=== PATIENT | male | born 1955 | race Caucasian/White ===

== ENCOUNTER 2017-09-19 13:48 | Emergency (ER) | payer OTHER, SELFPAY ==
--- NOTE | 2017-09-19 13:53 | DI.RAD.S_ITS ---
PROCEDURE: XR HAND RT MIN 3V INDICATIONS: right hand pain TECHNIQUE: 3 views of the hand(s) acquired. COMPARISON: None. FINDINGS: Bones: No fractures or dislocations. Carpal bones are normally aligned. No suspicious bony lesions. The bone mineralization is diffusely decreased. Moderate to severe degenerative changes are present involving nearly every joint of the right ankle most pronounced involving the basal joint of the thumb. Soft tissues: No suspicious soft tissue calcifications. IMPRESSION: Severe degenerative changes of the right hand. No displaced acute fractures are evident. Dictated by: Juan Wilkins M.D. on 09/19/2017 at 13:54 Approved by: Juan Wilkins M.D. on 09/19/2017 at 13:55
[2017-09-19 13:54] VITALS: BP 157/71; PULSE 93; RESP 22; TEMP 36.9; O2SAT 99; BMI 22.8
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
[2017-09-19 15:55] VITALS: BP 142/77; PULSE 71; RESP 15; O2SAT 97
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
== END 2017-09-19 16:33 | disposition home or self-care (01) ==
PROVIDERS: Emergency Provider Nurse Practitioner Family
DX: S63.8X1A Sprain of other part of right wrist and hand, initial encounter (principal); W22.09XA Striking against other stationary object, initial encounter
CPT/HCPCS: 73130; 99282; 99283

== ENCOUNTER 2019-05-14 09:43 | Day surgery (SDC) | payer MEDICARE, OTHER, SELFPAY ==
[2019-05-14] VITALS (11 sets, daily range): BP systolic 95–143; BP diastolic 66–76; PULSE 77–84; RESP 15–20; TEMP 36.3–37.5; O2SAT 91–99; BMI 22.2
--- NOTE | 2019-05-14 | PATH_ITS ---
[facility] Accession Number: [id number] . 01 Material submitted: . PART A: gastrointestinal site - RANDOM STOMACH BIOPSIES PART B: esophagus, E-G Junction - GE JUNCTION BIOPSIES . 02 Diagnosis: A. Random Stomach, Biopsies: Body mucosa with no diagnostic abnormality. No evidence of Helicobacter organisms on H/E stain. Negative for intestinal metaplasia. Negative for dysplasia and malignancy. . B. Gastroesophageal Junction, Biopsies: Squamocolumnar junctional mucosa with mild chronic inflammation. Negative for specialized intestinal metaplasia or fungal organisms on AB/PAS stain. Negative for dysplasia or malignancy. [facility] 05/15/2019 1415 Local . 02 Electronically signed: . Kody Clark MD, PhD, Pathologist NPI- [id number] . 01 Gross description: . Part A: RANDOM STOMACH BIOPSIES: Received in formalin are 3 fragment(s) of keys, soft tissue measuring 0.1 x 0.1 x 0.1 cm to 0.3 x 0.2 x 0.2 cm submitted entirely in 1 cassette(s) Part B: GE JUNCTION BIOPSIES: Received in formalin are 3 fragment(s) of keys, soft tissue measuring 0.1 x 0.1 x 0.1 cm to 0.3 x 0.2 x 0.2 cm submitted entirely in 1 cassette(s) /[facility] 05/14/2019 2110 Local . 02 Microscopic: . An AB/PAS stain is negative for goblet cells or fungal organisms. A control stain shows appropriate reactivity. . 02 Pathologist provided ICD-10: R10.13, K20.9 . 02 CPT . 731427, 553993, 224831 Performed at: [address], [place], [place] [id number] MD Chris Garcia MD Phone: [phone] Performed at: 02 [facility] [id number] [place] [address] [place], [place] [id number] MD Linnea Maldonado MD Phone: [phone]
[2019-05-14] MEDS: SODIUM CHLORIDE 0.9% 1,000 ML 200 ML IV (10:52)
--- NOTE | 2019-05-14 11:51 | PM.HP.1 ---
History of Present Illness History of Present Illness Date Patient Seen: 05/14/19 Time Patient Seen: 11:51 Chief complaint: [id number] Narrative: The patient is a gentleman who was have thing possible gastritis or ulcer and I was asked to perform an EGD along with a screening colonoscopy. His last colonoscopy was 7 years ago. His father had colon cancer. He has not seen any blood in his stool though he was told that he had it. Patient History Medical History (Updated 05/14/19 @ 11:52 by Timo Zafar MD) Femur fracture (Acute) Hypertension (Acute) Surgical History (Updated 05/14/19 @ 11:52 by Timo Zafar MD) S/P operative procedure on shoulder (Acute) Family & Social History Social History: household members spouse Tobacco & Substance use: Tobacco type cigars Smoking Status Current every day smoker alcohol intake frequency holiday/special occasion/several glasses several times a week Substance Use Type marijuana Meds Home Medications and Allergies Home Medications Medication Instructions Recorded Confirmed Type lisinopril-hydrochlorothiazide 1 tab PO QDAY #0 08/08/11 05/14/19 History Allergies Allergy/AdvReac Type Severity Reaction Status Date / Time Penicillins Allergy Mild Verified 05/14/19 10:44 Tetracycline Allergy Unknown Uncoded 05/14/19 10:44 Review of Systems Review of Systems ROS: Yes All systems reviewed with the patient and are negative except as otherwise documented Exam Vital Signs (past 8 hours): - 05/14/19 10:53 Temperature 97.3 F L Pulse Rate 78 Respiratory Rate 20 Blood Pressure 143/76 H Pulse Oximetry 99 Oxygen Delivery Method Room Air Narrative Exam Narrative: Pleasant cooperative patient no apparent distress. Lungs are clear to auscultation. No rales or rhonchi. Heart regular rate and rhythm no murmur gallop. Abdomen is soft nontender without mass. No obvious hernias. Patient is alert and oriented x3. Assessment & Plan Assessment & Plan narrative: The patient for a screening colonoscopy and an upper endoscopy. I have discussed the procedure with them. Risks of bleeding, perforation which would necessitate major operation, failure to find remove all lesions, the potential tattoo were all discussed. All questions were answered. They wished to proceed.
--- NOTE | 2019-05-14 11:54 | PM.PREOP ---
Pre-operative Note Interval Note History & Physical reviewed/Exam performed by Physician: Yes Changes to H&P: No ASA Class (for procedural sedation): II
--- NOTE | 2019-05-14 12:43 | PM.OP.ENDO ---
Operative Date/Time/Diagnoses Date of procedure: 05/14/19 Time of procedure: 12:43 Pre-op diagnosis: History of epigastric pain possible ulcer. Family history of colon cancer in his father. Last colonoscopy 7 years ago. Post-op diagnosis: same Procedure & Clinicians Study performed: Colonoscopy and upper endoscopy with cold biopsy. Same procedure as scheduled: Yes Indications: Screening for colon cancer. Evaluate for ulcer in the stomach. Surgeon: Timo Zafar Procedure Notes SCOAP/Timeout: Performed Procedure in detail: The patient had topical anesthetic applied to oropharynx. She was placed in left lateral decubitus position and underwent IV sedation directed by the surgeon consisting of fentanyl and Versed. A bite block was inserted and the scope was advanced through it into the esophagus. As I went past the area of the glottis and supraglottic larynx I noted a significant amount of inflammation in this area. The esophagus was unremarkable until I reach the GE junction.. GE junction was noted at 40 cm. There was a Schatzki ring at the GE junction. There was a small hiatal hernia noted.. The stomach insufflated well. There were no lesions seen in the body, antrum or at the incisura though the mucosa seemed somewhat pale. The pyloric channel was narrow but patent. The duodenum was unremarkable to the 4th part. The scope was brought back into the stomach and retroflexed. The proximal stomach normal in appearance. Random biopsies were taken of the stomach due to the pale appearance to rule out atrophy. The scope was straightened and brought out through the esophagus again. Biopsies were taken of the Schatzki ring at the GE junction. I noted no significant narrowing of this region. No other lesions were seen. The scope was removed and the patient tolerated the procedure well. The patient was placed in the left lateral decubitus position and underwent IV sedation directed by the surgeon consisting of fentanyl and Versed. Digital exam was remarkable for a rather large prostate without dominant mass. The scope was inserted and advanced through the rectum into the sigmoid, descending, transverse, and ascending colon. Occasional diverticulosis was noted. The cecum was reached identified by the ileocecal valve and the appendiceal opening. The scope was gradually brought out. No Polyps were found. The scope ultimately was retroflexed in the rectum. The appearance was normal go to the end. The prep was good.. The scope was removed and the patient tolerated the procedure well Scope withdrawal time: 6 minutes Sedation minutes: 35 Findings: diverticulosis and other findings (Schatzki ring and an enlarged prostate) Specimen(s): other (Gastric biopsies and biopsies of his Schatzki ring) Complications: none Post-procedure Recommendations: Colonscopy in 5 years Plan for aftercare: Recommend future colonoscopy be done under deep sedation as the patient required a significant amount of medication to adequately sedate him. Follow up: as needed Disposition: PACU
[2019-05-14] MEDS: MIDAZOLAM 5 MG/ML VIAL IV (12:45)
[2019-05-14] MEDS: fentaNYL 250 MCG/5 ML INJ IV (12:45)
[2019-05-14] MEDS: LIDOCAINE 4% SOLN 50 ML 20 ML TOP (12:46)
--- NOTE | 2019-05-14 13:53 | SUR.PHASEII ---
Discharged patient with all belongings with . [employer] pass provided to patient and family for priority boarding.
== END 2019-05-14 13:51 | disposition home or self-care (01) ==
LOC: ENDO 09:46
PROVIDERS: PCP Family Medicine; Referring Provider Family Medicine; Visit Provider Specialist
PROC: 0DJ08ZZ Inspection of Upper Intestinal Tract, Via Natural or Artificial Opening Endoscopic (ICD-10-PCS; CPT 43235; principal; 2019-05-14 11:45)
PROC: 0DJD8ZZ Inspection of Lower Intestinal Tract, Via Natural or Artificial Opening Endoscopic (ICD-10-PCS; CPT 45378; 2019-05-14 11:45)
DX: Z80.0 Family history of malignant neoplasm of digestive organs (principal); K22.2 Esophageal obstruction; K57.30 Diverticulosis of large intestine without perforation or abscess without bleeding; N40.0 Benign prostatic hyperplasia without lower urinary tract symptoms; K20.9 Esophagitis, unspecified
CPT/HCPCS: 43239; G0105; 99152; 99153; J2250; J3010

== ENCOUNTER → 2020-04-27 08:55 | Outpatient (CLI) | payer MEDICARE, OTHER, SELFPAY ==
--- NOTE | 2020-04-27 | DI.MRI.S_ITS ---
PROCEDURE: MR STROKE Pre- and post-contrast brain MRI, non-contrast brain MR angiogram, pre- and postcontrast neck MR angiogram INDICATIONS: Transient cerebral ischemic attack, unspecified TECHNIQUE: Brain: Noncontrast axial T1 spin echo, axial T2 fast spin echo, sagittal and axial FLAIR, coronal T2 fast spin echo, axial gradient echo, axial diffusion and ADC through the brain. After the administration of contrast, axial 3D VIBE of the cranial vasculature and brain. Brain MRA: Non-contrast 3-D time of flight MR angiogram, with multiple fuoqdbj-vspiwdpng-gnkufamnig (MIP) reformats performed. Neck MRA: Axial and sagittal TruFISP through the neck. Coronal dynamic MR angiogram during administration of contrast in the arterial and venous phases, with 3-dimenstional pbgsujw-oxijojunx-isyiuowzcy (MIP) reformats constructed from subtraction images. COMPARISON: CT, HEAD WITHOUT CONTRAST, 02/26/2008, 18:00. FINDINGS: Image quality: Excellent. BRAIN: The ventricular system and cortical sulci demonstrate atrophy, consistent for the patient's stated age. There are areas of increased T2/FLAIR signal intensity within the periventricular and subcortical white matter. There is no acute intra-or extra axial fluid collection. No acute hemorrhage, mass lesion or midline shift. Brainstem is unremarkable. There are no areas of restricted diffusion. Globes are symmetrical. Sinuses demonstrate minimal pansinus mucosal thickening. Osseous structures are intact. BRAIN MR ANGIOGRAM: Anterior circulation: Intracranial internal carotid arteries are normal in size and enhancement. The flow within the paired anterior cerebral arteries is normal and symmetric. The flow within the middle cerebral arteries is normal and symmetric. The anterior communicating artery is seen. No stenoses, occlusions, or aneurysms. Posterior circulation: The posterior circulation demonstrates a right vertebral artery dominance. Basilar artery and posterior cerebral arteries demonstrate no areas of hemodynamically significant stenosis, vascular occlusion or aneurysmal dilation. Posterior communicating arteries are within normal limits. NECK MR ANGIOGRAM: Carotids: Great vessels demonstrate a conventional anatomy as they arise from the aortic arch. The origins of the common carotid arteries appear patent. The calibers and courses of both common carotid arteries are normal. The bifurcation regions appear normal bilaterally. The internal carotid arteries demonstrate normal course and caliber. Posterior circulation: The origins of the vertebral arteries appear patent. More superior portions of both vertebral arteries demonstrate normal course and caliber, and join to form a normal appearing basilar artery. Miscellaneous: Subclavian arteries appear patent. Pre-contrast images through the neck show no soft tissue abnormalities. IMPRESSION: 1. No acute intracranial process. No acute ischemia. 2. Mild atrophy and chronic microvascular ischemic changes. 3. No areas of hemodynamically significant stenosis, vascular occlusion or aneurysmal dilation within the anterior or posterior circulation. 4. No areas of hemodynamically significant stenosis, vascular occlusion or aneurysmal dilation within the neck vasculature. Dictated by: Rashida Worley M.D. on 04/27/2020 at 13:18 Approved by: Rashida Worley M.D. on 04/27/2020 at 13:24
== END ==
PROVIDERS: PCP Family Medicine; Referring Provider Family Medicine; Visit Provider Family Medicine
DX: G45.9 Transient cerebral ischemic attack, unspecified (principal)
CPT/HCPCS: 70548; 70553

== ENCOUNTER 2022-10-19 08:39 | Emergency (ER) | payer MEDICARE, OTHER, SELFPAY ==
[2022-10-19 08:45] VITALS: BP 174/86; PULSE 62; RESP 18; TEMP 36.4; O2SAT 95; BMI 20.3
[2022-10-19] MEDS: HYDROMORPHONE 1 MG INJ 2 MG IM (08:58)
[2022-10-19] MEDS: ONDANSETRON 4 MG ODT SL (08:58)
--- NOTE | 2022-10-19 09:03 | ED_ITS ---
HPI - Back Pain/Injury General Chief Complaint: Back Pain/Injury Stated Complaint: Chronic Back Pain Time Seen by Provider: 10/19/22 08:42 Source: patient and EMS History of Present Illness HPI Narrative: Patient brought in by ambulance from [facility] rehab/correction. Complains of worsening chronic back pain. Patient scheduled in 2 days for outpatient MRI of the lumbar spine. Patient has history of multiple lumbar fractures. This has been there for many months. Patient was in a ICU unit for sepsis prior to going to rehab. He was found to have lumbar fractures prior to transferring to the rehab facility. Fractures were due to fall/trauma. History alcohol abuse according to medical chart. History of dementia. Patient is awake alert oriented to self. denies denies any new fall or injury. He is getting oxycodone 5 mg every 6 hours and he states that is not controlling his pain. No recent illness. No fever chills or cough cold or congestion. No urinary complaints. Patient points to lower back for source of pain. Able to logroll patient to the left. Area of pain is L3 area. Patient had outpatient x-ray of the lumbar spine September 15, 2022. Denies any numbness tingling or weakness to the feet or legs. Patient is DNR DNI with comfort measures only, POLST form with pt. Related Data Home Medications Medication Instructions Recorded Confirmed lisinopril 20 1 tab PO QDAY ##0 08/08/11 05/14/19 mg-hydrochlorothiazide 12.5 mg tablet Allergies Allergy/AdvReac Type Severity Reaction Status Date / Time Penicillins Allergy Mild Verified 05/14/19 10:44 Tetracycline Allergy Unknown Uncoded 05/14/19 10:44 Review of Systems Review of Systems Narrative: GENERAL: negative chills, fatigue, malaise, fever, sweats. HEENT: negative sinus pain, ear pain, sore throat RESPIRATORY: negative dyspnea, cough CARDIOVASCULAR: negative chest pain, palpitations GASTROINTESTINAL: negative nausea, vomiting, abdominal pain : negative dysuria, frequency, hematuria MUSCULOSKELETAL: negative muscle or bony pain, positive back pain SKIN: negative rash, skin lesions NEUROLOGIC: negative weakness, numbness ROS Unobtainable: All systems reviewed & are unremarkable except as noted in HPI and below Patient History Medical History Femur fracture Hypertension Surgical History S/P operative procedure on shoulder Social History household members: spouse Smoking Status: Current every day smoker Smoking Status: Current every day smoker alcohol intake frequency: holidays/special occasions only Substance Use Type: marijuana Exam Narrative Exam Narrative: GENERAL: in no distress, not toxic not dyspneic HEAD: Normocephalic. EYES: Pupils equal round ENT: Mucous membranes moist. NECK: Trachea midline. CARDIOVASCULAR: Regular rate and rhythm without murmurs RESPIRATORY: Clear to auscultation. Breath sounds equal bilaterally. No wheezes, rales, or rhonchi. GASTROINTESTINAL: Abdomen soft, non-tender EXTREMITIES: No gross deformities. BACK: No flank tenderness. There is mild paralumbar tenderness at the L3 area. No midline tenderness or step-off. Patient is able to log roll to the left. Increased pain with sitting up attempt. NEURO: Patient is awake alert oriented to self and date of . Clear speech no facial droop. Light touch intact in bilateral feet. Able to lift each leg off the bed. SKIN: Warm and dry PSYCH: Not anxious, is cooperative Initial Vital Signs Initial Vital Signs: Vital Signs Temperature 97.5 F L 10/19/22 08:45 Pulse Rate 62 10/19/22 08:45 Respiratory Rate 18 10/19/22 08:45 Blood Pressure 174/86 H 10/19/22 08:45 Pulse Oximetry 95 10/19/22 08:45 Oxygen Delivery Method Room Air 10/19/22 08:45 Course Orders Ordered: Discontinued Medications Hydromorphone HCl (Hydromorphone 1 Mg Inj) 2 mg IM NOW ONE Stop: 10/19/22 08:54 Last Admin: 10/19/22 08:58 Dose: 2 mg Documented By: FERN Ondansetron HCl (Ondansetron 4 Mg Odt) 4 mg SL NOW ONE Stop: 10/19/22 08:54 Last Admin: 10/19/22 08:58 Dose: 4 mg Documented By: FERN Vital Signs Vital signs: Vital Signs - 8 hr 10/19/22 08:45 10/19/22 10:26 Temperature 97.5 F L Pulse Rate 62 89 Respiratory Rate 18 18 Blood Pressure 174/86 H 154/81 H Pulse Oximetry 95 99 Oxygen Delivery Method Room Air MDM - Back Pain/Injury MDM Narrative Medical decision making narrative: Patient brought in by ambulance from [facility] rehab/correction. Complains of worsening chronic back pain. Patient scheduled in 2 days for outpatient MRI of the lumbar spine. Patient has history of multiple lumbar fractures. This has been there for many months. Patient was in a ICU unit for sepsis prior to going to rehab. He was found to have lumbar fractures prior to transferring to the rehab facility. Fractures were due to fall/trauma. History alcohol abuse according to medical chart. History of dementia. Patient is awake alert oriented to self. denies denies any new fall or injury. He is getting oxycodone 5 mg every 6 hours and he states that is not controlling his pain. No recent illness. No fever chills or cough cold or congestion. No urinary complaints. Patient points to lower back for source of pain. Able to logroll patient to the left. Area of pain is L3 area. Patient had outpatient x-ray of the lumbar spine September 15, 2022. Denies any numbness tingling or weakness to the feet or legs. Patient is DNR DNI with comfort measures only, POLST form with pt. After history and exam Dilaudid IM ordered, no laboratory studies or imaging indicated. No new injury or fall. Patient is awake and alert and decisional. No recent illness. MDM CC: Chronic back pain Complicating co-morbidities: Chronic back pain/dementia Data collected from: Patient and medical records from the facility Medical records reviewed: X-ray September 15, 2022 lumbar spine done here. longterm records as well Differential considered: Includes but not limited to acute on chronic back pain secondary to vertebral fracture Exam documented above, pertinent findings include: Tender lower back Treatments: Dilaudid intramuscular Re-evaluations: 10:53 a.m.. Patient states feels much better, pain much better controlled. He desires discharge home. Return precautions reviewed. He will need his primary care to adjust his pain medication scheduling. Discussion: Appropriate for discharge home. Patient is back pain likely due to need of rescheduling or higher dose of pain medication. No imaging or blood work indicated. No fall or injury recent illness. This pain is not new. Patient agrees with treatment plan. Return precautions reviewed. He desires discharge back home Diagnosis: Acute on chronic back pain Discharge Plan Departure Patient Disposition: Home Clinical Impression: Chronic back pain Instructions: DI for Chronic Pain -- Adult Activity Restrictions/Additional Instructions: Please see your family doctor this week for re-evaluation of your pain medicatio n scheduling. You may need different dosing or scheduling of your pain medication to have better control. Return if worse if any questions or concerns. Prescriptions: No Action lisinopril-hydrochlorothiazide 20 MG/12.5 MG tablet 1 tab PO QDAY Qty: 0 Referrals: Fabian Astudillo MD [Primary Care Provider] - Stand Alone Forms: Patient Portal/API
[2022-10-19 10:26] VITALS: BP 154/81; PULSE 89; RESP 18; O2SAT 99
[2022-10-19 11:09] VITALS: BP 132/86; PULSE 89; O2SAT 100
--- NOTE | 2022-10-19 11:09 | PC.NURSE ---
report called to [facility] [phone]
== END 2022-10-19 12:37 | disposition home or self-care (01) ==
PROVIDERS: Emergency Provider Emergency Medicine; PCP Family Medicine
DX: G89.29 Other chronic pain (principal)
CPT/HCPCS: 96372; 99283; J1170

== ENCOUNTER → 2022-10-21 11:23 | Outpatient (CLI) | payer MEDICARE, OTHER, SELFPAY ==
--- NOTE | 2022-10-21 | DI.MRI.S_ITS ---
PROCEDURE: MR LUMBAR SPINE WO CON INDICATIONS: Wedge compression fracture TECHNIQUE: Noncontrast sagittal T1 spin echo and T2 fast echo, sagittal STIR, and T2 fast spin echo through the lumbar spine. In cases with scoliosis, additional coronal T2 fast spin echo may be performed. COMPARISON: None. FINDINGS: Image quality: Excellent. Alignment and Curvature: There is normal bony alignment. Bone Marrow: There is a moderate to severe compression of L1 with approximately 70% midportion vertebral body height loss, and some degree of continued acuity, not completely healed. There is a moderate to severe acute compression fracture of L2 with approximately 70% midportion vertebral body height loss. There is a compression fracture of L3 which is chronic with approximately 80% midportion vertebral body height loss. There is a acute to subacute compression of L4 with approximately 60% midportion vertebral body height loss. There is a subacute mild superior endplate compression of L5 with approximately 15% midportion vertebral body height loss. Also noted is a mild old T11 compression. Spinal Cord: Conus medullaris terminates at the L1 level. Visualized cord demonstrates normal signal and size. Paraspinous Soft Tissues: No paravertebral masses. T12-L1: No canal stenosis or foraminal stenosis. L1-L2: Disc bulge with tygm-et-memfzonf canal stenosis. Severe right foraminal stenosis with significant compression on the exiting right L1 nerve root. L2-L3: Disc bulge. Facet and ligament hypertrophy. Hhia-ua-hvkacyyw canal stenosis. Moderate to severe right foraminal narrowing with a degree of right foraminal L2 nerve root impingement. L3-L4: Disc bulge. Facet and ligament hypertrophy. Mild canal stenosis. Moderate right foraminal narrowing with flattening deformity on the exiting right L3 nerve root. L4-L5: Disc bulge. Facet hypertrophy. No canal stenosis. Moderate bilateral foraminal narrowing with mild flattening deformity on the exiting bilateral L4 nerve roots. L5-S1: Disc bulge. Facet hypertrophy. No canal stenosis. Moderate to severe right foraminal narrowing with a degree of right foraminal L5 nerve root impingement. Mild to moderate left foraminal narrowing. IMPRESSION: 1. Severe osteoporosis with numerous compression fractures. 2. There are multiple compression fractures which are either acute or subacute, including L1, L2, L4, and L5. Additionally, there are chronic compressions of T11 and L3. 3. Canal stenosis is mild to moderate at L2-L3 and mild at L3-L4. 4. Significant multilevel foraminal narrowing as described above, including severe right foraminal narrowing at L1-L2, moderate to severe right foraminal narrowing at L2-L3, and moderate to severe right foraminal narrowing at L5-S1. Comment: Patient may potentially benefit from a discussion for possible multilevel kyphoplasty, if the patient has significant acute lifestyle limiting pain symptomatology. Additional comment: Cannot exclude underlying multiple myeloma in this patient. Consider initiation of multiple myeloma workup. Dictated by: Bryant Greenwood M.D. on 10/21/2022 at 15:36 Approved by: Bryant Greenwood M.D. on 10/21/2022 at 15:44
== END ==
PROVIDERS: PCP Family Medicine; Referring Provider Family Medicine; Visit Provider Family Medicine
DX: M80.08XA Age-related osteoporosis with current pathological fracture, vertebra(e), initial encounter for fracture (principal); S32.000A Wedge compression fracture of unspecified lumbar vertebra, initial encounter for closed fracture; M48.061 Spinal stenosis, lumbar region without neurogenic claudication; M48.07 Spinal stenosis, lumbosacral region
CPT/HCPCS: 72148

== ENCOUNTER 2022-10-30 11:01 | Inpatient (IN) | payer MEDICARE, OTHER, SELFPAY ==
[2022-10-30] VITALS (9 sets, daily range): BP systolic 110–151; BP diastolic 67–93; PULSE 77–107; RESP 14–20; TEMP 36.7; O2SAT 95–100; BMI 22.2
--- NOTE | 2022-10-30 11:11 | DI.RAD.S_ITS ---
PROCEDURE: XR LUMBAR SPINE 2-3V INDICATIONS: Reported L4, L5 fracture two months ago TECHNIQUE: 3 views of the lumbar spine were acquired. COMPARISON: [facility], MR, MR LUMBAR SPINE WO CON, 10/21/2022, 11:40. [facility] ([place]), CR, XR LUMBAR SPINE 2-3V, 09/15/2022, 15:29. FINDINGS: Examination limited by dilated overlying bowel loops. Bones: 5 ydq-msg-mrhffgo vertebrae are present. There is loss of normal lumbar lordosis. Multilevel disc space narrowing and endplate osteophyte formation. No significant change in multilevel compression fractures within the lumbar and lower thoracic spine. No suspicious bony lesions. Soft tissues: Moderately distended small bowel loops with air-fluid levels. No suspicious soft tissue calcifications. IMPRESSION: 1. No significant change in multilevel compression fractures. 2. Dilated small bowel loops, consistent with small bowel obstruction. Dictated by: Jyotsna Amaro M.D. on 10/30/2022 at 12:07 Approved by: Jyotsna Amaro M.D. on 10/30/2022 at 12:09
--- NOTE | 2022-10-30 11:14 | DI.CT.S_ITS ---
PROCEDURE: CT ABDOMEN PELVIS W CON INDICATIONS: Abdominal pain w/ hx of constipation TECHNIQUE: After the administration of intravenous contrast, axial sections acquired from the lung bases to the pubic symphysis. Coronal and sagittal reformats were performed. For radiation dose reduction, the following was used: automated exposure control, adjustment of mA and/or kV according to patient size. COMPARISON: [facility], CT, ABDOMEN/PELVIS WITH CONTRAST, 07/23/2013, 11:30. FINDINGS: Image quality: Excellent. Lung bases: Trace bilateral pleural effusions. Heart: No significant findings. ABDOMEN: Liver: Unremarkable. Gallbladder: Mildly distended Biliary ducts: Unremarkable. Pancreas: Unremarkable. Spleen: Unremarkable. Adrenal Glands: Unremarkable. Kidneys and Ureters: Unremarkable. Stomach and Bowel: Stomach is mildly distended. Multiple moderately distended loops of small present. There appears to be a transition point within the mid line pelvis anteriorly between dilated and nondilated small bowel. Distal small bowel loops are nondistended. Colon demonstrates moderate diffuse stool. There is moderate thickening of the descending and sigmoid colon. Mild fat stranding surrounds the descending and sigmoid colon. Normal appendix. Peritoneum: No abnormal intraperitoneal fluid. No free air. Ventral Wall: No hernias. Abdominal Nodes: No retroperitoneal or mesenteric adenopathy by size criteria. Vessels: Aorta and inferior vena cava are normal in size. PELVIS: Pelvic Organs: Unremarkable. Bladder: Unremarkable. Pelvic Nodes: No enlarged lymph nodes. Miscellaneous: No hernias are seen. Bones: Subacute L2 and L4 compression fractures. Chronic fractures of T11, T12, L1, and L3. Multilevel disc space narrowing and endplate osteophyte formation, as well as facet hypertrophy. IMPRESSION: 1. Small-bowel obstruction. 2. Thickening of the descending and sigmoid colon, consistent with ischemia, infection, or inflammation. 3. Normal appendix. 4. Trace bilateral pleural effusions. 5. Multilevel compression fractures regions thoracolumbar spine. Dictated by: Jyotsna Amaro M.D. on 10/30/2022 at 12:22 Approved by: Jyotsna Amaro M.D. on 10/30/2022 at 12:26
--- NOTE | 2022-10-30 11:16 | ED.BACK ---
HPI - Back Pain/Injury <Moses Hess PA-C - Last Filed: 10/30/22 14:47> General Chief Complaint: Back Pain/Injury Stated Complaint: worsening pain Time Seen by Provider: 10/30/22 11:04 Source: patient and EMS History of Present Illness HPI Narrative: This is a 67-year-old male presents emergency department due to worsening acute on chronic lower back pain after reportedly fracture in his L4 and L5 vertebrae approximately 2 months ago. he was told that this would heal over time without any further treatment needed. Patient denies any saddle paresthesia, urinary bowel incontinence, fevers, or any other concerning signs or symptoms. No radicular pain and no weakness in the lower extremities. Patient is also describing having very infrequent bowel movements over the last 3 weeks. He says that every once a while it there is able to be a spurt. He is also reporting abdominal pain as well. Denies any nausea, vomiting, fevers, chest pain, shortness of breath weakness, or any other concerning signs or symptoms. Last ate at 8:30am Related Data Home Medications Medication Instructions Recorded Confirmed lisinopril 20 1 tab PO QDAY ##0 08/08/11 05/14/19 mg-hydrochlorothiazide 12.5 mg tablet Allergies Allergy/AdvReac Type Severity Reaction Status Date / Time Penicillins Allergy Mild Verified 10/30/22 11:51 tetracycline AdvReac Verified 10/30/22 11:51 Tetracycline Allergy Unknown Uncoded 10/30/22 11:51 Review of Systems <Moses Hess PA-C - Last Filed: 10/30/22 14:47> Review of Systems Narrative: GENERAL: Denies chills, fatigue, malaise, fever, sweats. HEENT: Denies sinus pain, ear pain, sore throat, difficulty swallowing, dizziness. RESPIRATORY: Denies dyspnea, cough, wheezing, hemoptysis, sputum. CARDIOVASCULAR: Denies chest pain, palpitations, orthopnea, edema, GASTROINTESTINAL: reports abdominal pain and constipation. Denies diarrhea, nausea, vomiting : Denies dysuria, frequency, incontinence, hematuria, urinary retention. MUSCULOSKELETAL: Reports lower back pain SKIN: Denies rash, skin lesions, or other NEUROLOGIC: Denies weakness, headache, numbness, change in speech, confusion, seizures, incoordination. PSYCHIATRIC: No concerning psychosocial issues. 12 point review of systems is negative except for those stated above Patient History <GRACIE Riley Last Filed: 10/30/22 14:47> Medical History Femur fracture Hypertension Surgical History S/P operative procedure on shoulder Social History household members: spouse Smoking Status: Current every day smoker Smoking Status: Former smoker alcohol intake frequency: holidays/special occasions only Substance Use Type: does not use Exam <GRACIE Riley Last Filed: 10/30/22 14:47> Narrative Exam Narrative: GENERAL: Well-developed patient, in mild distress. HEAD: Atraumatic. Normocephalic. EYES: Pupils equal round and reactive. Extraocular motions intact. No scleral icterus. No injection or drainage. ENT: Nose without bleeding, purulent drainage. Throat without erythema, tonsillar hypertrophy or exudate. Airway patent. NECK: Trachea midline. Non tender CARDIOVASCULAR: Regular rate and rhythm without murmurs, gallops, or rubs. RESPIRATORY: Clear to auscultation. Breath sounds equal bilaterally. No wheezes, rales, or rhonchi. GASTROINTESTINAL: moderate distention to the abdomen, tenderness to palpation generalized EXTREMITIES: No edema or joint tenderness. BACK: Nontender without deformity or crepitance. No flank tenderness. NEURO: AOx3. SKIN: No rash or erythema of visible areas Initial Vital Signs Initial Vital Signs: Vital Signs Temperature 98.1 F 10/30/22 11:07 Pulse Rate 93 H 10/30/22 11:07 Respiratory Rate 20 10/30/22 11:07 Blood Pressure 145/77 H 10/30/22 11:07 Pulse Oximetry 100 10/30/22 11:07 Oxygen Delivery Method Room Air 10/30/22 11:07 <Dakota Ornelas DO - Last Filed: 10/30/22 15:31> Initial Vital Signs Initial Vital Signs: Vital Signs Temperature 98.1 F 10/30/22 11:07 Pulse Rate 93 H 10/30/22 11:07 Respiratory Rate 20 10/30/22 11:07 Blood Pressure 145/77 H 10/30/22 11:07 Pulse Oximetry 100 10/30/22 11:07 Oxygen Delivery Method Room Air 10/30/22 11:07 Course <Moses Hess PA-C - Last Filed: 10/30/22 14:47> Orders Ordered: ED Orders 10/30/22 11:11 XR lumbar spine 2-3V Stat 10/30/22 11:14 CT abdomen pelvis w con Stat 10/30/22 11:25 Complete Blood Count AUTO DIFF Stat Comprehensive Metabolic Panel Stat 10/30/22 14:25 Blood Culture Stat Lactate (Lactic Acid) Stat Enoxaparin Sodium (Enoxaparin 40 Mg/0.4 Ml Syringe) 40 mg SUBCUT DAILY JASWINDER Hydromorphone HCl (Hydromorphone 0.5 Mg Inj) 0.5 mg IV Q2H PRN PRN Reason: Pain, Severe (7-10) Dextrose/Sodium Chloride (Dextrose 5%-0.9% Ns) 1,000 mls @ 100 mls/hr IV CONT JASWINDER Naloxone HCl (Naloxone 0.4 Mg/Ml Vial) 0.2 mg IV Q2MIN PRN PRN Reason: Opiate Reversal Ondansetron HCl (Ondansetron 4 Mg/2 Ml Inj) 4 mg IV Q8HR PRN PRN Reason: Nausea And Vomiting Discontinued Medications Sodium Chloride (Normal Saline 0.9%) 1,000 mls @ 1,000 mls/hr IV BOLUS ONE Stop: 10/30/22 13:06 Last Infusion: 10/30/22 14:04 Dose: 0 mls/hr Documented By: Admin: 10/30/22 12:43 Dose: 1,000 mls/hr Documented By: OW POTASSIUM CHLORIDE IN WATER (Potassium Cl 10 Meq/100 Ml Deya) 10 meq in 100 mls @ 100 mls/hr IV NOW ONE Stop: 10/30/22 15:24 Last Admin: 10/30/22 14:42 Dose: 100 mls/hr Documented By: ST Midazolam HCl (Midazolam 2 Mg/2 Ml Vial) 0.5 mg IV NOW ONE Stop: 10/30/22 14:28 Last Admin: 10/30/22 14:42 Dose: 0.5 mg Documented By: ST Morphine Sulfate (Morphine 2 Mg/Ml Inj) 2 mg IV NOW ONE Stop: 10/30/22 11:30 Last Admin: 10/30/22 11:33 Dose: 2 mg Documented By: ALICIA Ondansetron HCl (Ondansetron 4 Mg/2 Ml Inj) 4 mg IV NOW ONE Stop: 10/30/22 11:30 Last Admin: 10/30/22 11:33 Dose: 4 mg Documented By: ALICIA Consultations Consultation #1: [id number]: Discussed case with Dr. Rojas as noted below Vital Signs Vital signs: Vital Signs - 8 hr 10/30/22 11:07 10/30/22 12:30 10/30/22 12:30 Temperature 98.1 F Pulse Rate 93 H 85 Respiratory Rate 20 Blood Pressure 145/77 H 110/67 Pulse Oximetry 100 99 Oxygen Delivery Method Room Air 10/30/22 13:00 10/30/22 13:30 10/30/22 14:31 Temperature Pulse Rate 87 77 Respiratory Rate Blood Pressure 143/82 H Pulse Oximetry 100 100 Oxygen Delivery Method Room Air 10/30/22 14:31 Temperature Pulse Rate 90 Respiratory Rate Blood Pressure Pulse Oximetry 95 Oxygen Delivery Method <Dakota Ornelas DO - Last Filed: 10/30/22 15:31> Orders Ordered: ED Orders 10/30/22 11:11 XR lumbar spine 2-3V Stat 10/30/22 11:14 CT abdomen pelvis w con Stat 10/30/22 11:25 Complete Blood Count AUTO DIFF Stat Comprehensive Metabolic Panel Stat 10/30/22 14:25 Blood Culture Stat Lactate (Lactic Acid) Stat Enoxaparin Sodium (Enoxaparin 40 Mg/0.4 Ml Syringe) 40 mg SUBCUT DAILY JASWINDER Hydromorphone HCl (Hydromorphone 0.5 Mg Inj) 0.5 mg IV Q2H PRN PRN Reason: Pain, Severe (7-10) Dextrose/Sodium Chloride (Dextrose 5%-0.9% Ns) 1,000 mls @ 100 mls/hr IV CONT JASWINDER Naloxone HCl (Naloxone 0.4 Mg/Ml Vial) 0.2 mg IV Q2MIN PRN PRN Reason: Opiate Reversal Ondansetron HCl (Ondansetron 4 Mg/2 Ml Inj) 4 mg IV Q8HR PRN PRN Reason: Nausea And Vomiting Discontinued Medications Sodium Chloride (Normal Saline 0.9%) 1,000 mls @ 1,000 mls/hr IV BOLUS ONE Stop: 10/30/22 13:06 Last Infusion: 10/30/22 14:04 Dose: 0 mls/hr Documented By: Admin: 10/30/22 12:43 Dose: 1,000 mls/hr Documented By: OW POTASSIUM CHLORIDE IN WATER (Potassium Cl 10 Meq/100 Ml Deya) 10 meq in 100 mls @ 100 mls/hr IV NOW ONE Stop: 10/30/22 15:24 Last Admin: 10/30/22 14:42 Dose: 100 mls/hr Documented By: ST Midazolam HCl (Midazolam 2 Mg/2 Ml Vial) 0.5 mg IV NOW ONE Stop: 10/30/22 14:28 Last Admin: 10/30/22 14:42 Dose: 0.5 mg Documented By: ST Morphine Sulfate (Morphine 2 Mg/Ml Inj) 2 mg IV NOW ONE Stop: 10/30/22 11:30 Last Admin: 10/30/22 11:33 Dose: 2 mg Documented By: OW Ondansetron HCl (Ondansetron 4 Mg/2 Ml Inj) 4 mg IV NOW ONE Stop: 10/30/22 11:30 Last Admin: 10/30/22 11:33 Dose: 4 mg Documented By: OW Vital Signs Vital signs: Vital Signs - 8 hr 10/30/22 11:07 10/30/22 12:30 10/30/22 12:30 Temperature 98.1 F Pulse Rate 93 H 85 Respiratory Rate 20 Blood Pressure 145/77 H 110/67 Pulse Oximetry 100 99 Oxygen Delivery Method Room Air 10/30/22 13:00 10/30/22 13:30 10/30/22 14:31 Temperature Pulse Rate 87 77 Respiratory Rate Blood Pressure 143/82 H Pulse Oximetry 100 100 Oxygen Delivery Method Room Air 10/30/22 14:31 Temperature Pulse Rate 90 Respiratory Rate Blood Pressure Pulse Oximetry 95 Oxygen Delivery Method MDM - Back Pain/Injury <Moses Hess PA-C - Last Filed: 10/30/22 14:47> Lab Data 10/30/22 11:25 10/30/22 11:25 Labs: Lab Results 10/30/22 10/30/22 10/30/22 Range/Units 11:25 11:25 14:25 WBC 7.0 (4.5-11.0) X10^3/uL RBC 3.32 L (4.5-5.9) X10^6/uL Hgb 9.7 L (13.5-17.5) g/dL Hct 28.8 L (41-53) % MCV 86.8 (80-100) fL MCH 29.2 (26-34) PG MCHC 33.6 (30-36) % RDW 15.7 H (11.6-14.8) % Plt Count 506 H (150-400) X10^3/uL Neut % (Auto) 56.4 (50-75) % Lymph % (Auto) 22.8 L (25-40) % [place] % (Auto) 19.0 H (3-14) % Eos % (Auto) 0.7 L (2-4) % Baso % (Auto) 1.1 (0-2) % Neut # (Auto) 3900 (7906-0039) /uL Lymph # (Auto) 1600 (2733-9656) /uL [place] # (Auto) 1300 H (0-900) /uL Eos # (Auto) 0 (0-450) /uL Baso # (Auto) 100 (0-100) /uL Sodium 123 L (137-145) mmol/L Potassium 3.3 L (3.4-5.1) mmol/L Chloride 91 L (98-107) mmol/L Carbon Dioxide 25 (22-32) mmol/L BUN 5 L (9-20) mg/dL Creatinine 0.66 (0.66-1.25) mg/dL Estimated GFR > 60 (>60) mL/min BUN/Creatinine Ratio 7.6 (6-22) Glucose 128 H (80-110) mg/dL Lactate 2.3 H (0.7-2.1) mmol/L Calcium 8.0 L (8.4-10.2) mg/dL Total Bilirubin 0.3 (0.2-1.3) mg/dL AST 16 L (17-59) IU/L ALT 16 (<50) IU/L Alkaline Phosphatase 129 H (38-126) U/L Total Protein 5.6 L (6.3-8.2) g/dL Albumin 2.6 L (3.5-5.0) g/dL Globulin 3.0 (1.7-4.1) g/dL Albumin/Globulin Ratio 0.9 L (1.0-2.8) Urine Dip Bedside Urine Glucose Negative Bedside Urine Bilirubin - Negative Bedside Urine Ketone - Negative Urine Specific [place] 1.005 Bedside Urine Occult Blood - Negative Bedside Urine pH 6.5 Bedside Urine Protein - Negative Bedside Urine Urobilinogen - Negative Bedside Urine Nitrite - Negative Bedside Urine Leukocytes - Negative Esterase Imaging Data CT scan - abdomen/pelvis: Radiologist's Impression: Unable to transfer exact report due to technical difficulties. Impression as noted below. Small-bowel obstruction thickening of the the descending and sigmoid colon consistent with ischemia infection or inflammation Normal appendix Trace bilateral pleural effusions Multilevel compression fractures regions thoracolumbar spine MDM Narrative Medical decision making narrative: MDM * differential diagnosis includes but not limited to constipation, small-bowel obstruction, lumbar fracture, acute on chronic lumbar pain, cauda equina * Prior records reviewed: Patient was last seen here 2 weeks ago due to similar chronic back pain. History of alcohol abuse and dementia. History of hypertension. Patient was given IM Dilaudid which helped improve his back pain and discharged home. * My lab interpretation: CMP showed hyponatremia of 123 although patient was not presenting with any acute signs of acute hyponatremia. Also very mildly hypokalemic at 3.3. Mildly hypocalcemic at 8.0. CBC showed no evidence of leukocytosis. * My imgaing interpretation: CT abdomen pelvis showed small bowel obstruction, thickening of the descending and sigmoid colon, consistent with ischemia infection or inflammation. Normal appendix. Trace bilateral pleural effusions. Subacute L2 and L4 compression fractures as well as chronic fractures of T11, T12, L1, and L3. * Clinical Decision Rules/Scores evaluated: None * Independent discussions with: None ED Course: This is a 67-year-old male presents to the emergency department due to 3 weeks constipation as well as acute on chronic lower back pain. Due to the amount of distention CT abdomen and pelvis was ordered which showed a small-bowel obstruction. This was discussed with on-call general surgeon, Dr. Rojas, who recommended placement of the NG tube and admission to the hospitalist. patient is labwork showed hyponatremia of 123 with, a L of normal saline was given. Also very mildly hypokalemic and IV potassium was given. Case was discussed with hospitalist, Dr. Campbell, who kindly accepted the patient for admission. report also showed multiple vertebral fractures although chronic and no further treatment needed.. No patient was not describing any neurologic changes concerning for cauda equina syndrome or spinal cord compromise. Shared Decision Making: Discussed plan with the patient who is comfortable with the plan. Social Considerations: None Disposition: admitted as inpatient <Dakota Ornelas, DO - Last Filed: 10/30/22 15:31> Lab Data Labs: Lab Results 10/30/22 10/30/22 10/30/22 Range/Units 11:25 11:25 14:25 WBC 7.0 (4.5-11.0) X10^3/uL RBC 3.32 L (4.5-5.9) X10^6/uL Hgb 9.7 L (13.5-17.5) g/dL Hct 28.8 L (41-53) % MCV 86.8 (80-100) fL MCH 29.2 (26-34) PG MCHC 33.6 (30-36) % RDW 15.7 H (11.6-14.8) % Plt Count 506 H (150-400) X10^3/uL Neut % (Auto) 56.4 (50-75) % Lymph % (Auto) 22.8 L (25-40) % [place] % (Auto) 19.0 H (3-14) % Eos % (Auto) 0.7 L (2-4) % Baso % (Auto) 1.1 (0-2) % Neut # (Auto) 3900 (6712-9546) /uL Lymph # (Auto) 1600 (7842-9287) /uL [place] # (Auto) 1300 H (0-900) /uL Eos # (Auto) 0 (0-450) /uL Baso # (Auto) 100 (0-100) /uL Sodium 123 L (137-145) mmol/L Potassium 3.3 L (3.4-5.1) mmol/L Chloride 91 L (98-107) mmol/L Carbon Dioxide 25 (22-32) mmol/L BUN 5 L (9-20) mg/dL Creatinine 0.66 (0.66-1.25) mg/dL Estimated GFR > 60 (>60) mL/min BUN/Creatinine Ratio 7.6 (6-22) Glucose 128 H (80-110) mg/dL Lactate 2.3 H (0.7-2.1) mmol/L Calcium 8.0 L (8.4-10.2) mg/dL Total Bilirubin 0.3 (0.2-1.3) mg/dL AST 16 L (17-59) IU/L ALT 16 (<50) IU/L Alkaline Phosphatase 129 H (38-126) U/L Total Protein 5.6 L (6.3-8.2) g/dL Albumin 2.6 L (3.5-5.0) g/dL Globulin 3.0 (1.7-4.1) g/dL Albumin/Globulin Ratio 0.9 L (1.0-2.8) Urine Dip Bedside Urine Glucose Negative Bedside Urine Bilirubin - Negative Bedside Urine Ketone - Negative Urine Specific [place] 1.005 Bedside Urine Occult Blood - Negative Bedside Urine pH 6.5 Bedside Urine Protein - Negative Bedside Urine Urobilinogen - Negative Bedside Urine Nitrite - Negative Bedside Urine Leukocytes - Negative Esterase Discharge Plan Departure Patient Disposition: Admitted As Inpatient Clinical Impression: SBO (small bowel obstruction), Compression fracture of vertebrae Admit Date/Time: 10/30/22 14:42 Admit Provider: Ari Campbell <Dakota Ornelas DO - Last Filed: 10/30/22 15:31> Cosign ED Attending Cosignature Attestation: Dr Ornelas Co-Sign Statement: I was available for consultation during this patient's emergency department visit. This chart is signed by myself for administrative purposes only. I did not have direct contact with this patient during this visit. They were seen independently by the APC.
[2022-10-30 11:29] LABS: Add Manual Diff / Slide Review NO; Basophils Absolute Auto 100 /uL (0-100); Basophils Percent Auto 1.1 % (0-2); Eosinophils Absolute Auto 0 /uL (0-450); Eosinophils Percent Auto 0.7 % (2-4); Hematocrit 28.8 % (41-53); Hemoglobin 9.7 g/dL (13.5-17.5); Lymphocytes Absolute Auto 1600 /uL (1100-4500); Lymphocytes Percent Auto 22.8 % (25-40); Mean Corpuscular HGB Conc 33.6 % (30-36); Mean Corpuscular Hemoglobin 29.2 PG (26-34); Mean Corpuscular Volume 86.8 fL (80-100); Monocytes Absolute Auto 1300 /uL (0-900); Neutrophils Absolute Auto 3900 /uL (1500-7000); Neutrophils Percent Auto 56.4 % (50-75); Platelet Count 506 X10^3/uL (150-400); Red Blood Cell Count 3.32 X10^6/uL (4.5-5.9); Red Cell Distribution Width 15.7 % (11.6-14.8)
[2022-10-30] MEDS: MORPHINE 2 MG/ML INJ IV (11:33)
[2022-10-30] MEDS: ONDANSETRON 4 MG/2 ML INJ IV (11:33)
[2022-10-30 11:40] LABS: Alanine Aminotransferase 16 IU/L (<50); Albumin 2.6 g/dL (3.5-5.0); Albumin Globulin Ratio 0.9 (1.0-2.8); Alkaline Phosphatase 129 U/L (38-126); Aspartate Aminotransferase 16 IU/L (17-59); BUN Creatinine Ratio 7.6 (6-22); Bilirubin Total 0.3 mg/dL (0.2-1.3); Blood Urea Nitrogen 5 mg/dL (9-20); Carbon Dioxide 25 mmol/L (22-32); Chloride 91 mmol/L (98-107); Estimated Glomerular Filt Rate > 60 mL/min (>60); Glucose 128 mg/dL (80-110); HEMOLYSIS < 15 (0-50); Potassium 3.3 mmol/L (3.4-5.1); Sodium 123 mmol/L (137-145); Total Protein 5.6 g/dL (6.3-8.2)
[2022-10-30] MEDS: SODIUM CHLORIDE 0.9% 1,000 ML 1000 ML IV (12:43)
[2022-10-30] MEDS: MIDAZOLAM 2 MG/2 ML VIAL 0.5 MG IV (14:42)
[2022-10-30] MEDS: POTASSIUM CHLORIDE IN WATER 10 MEQ/100 ML PIGGYBACK 100 MEQ IV (14:42)
[2022-10-30 14:46] LABS: Lactate (Lactic Acid) 2.3 mmol/L (0.7-2.1)
--- NOTE | 2022-10-30 14:46 | P.CONS_ITS ---
History of Present Illness Consult details Date Patient Seen: 10/30/22 Time Patient Seen: 17:00 Chief complaint: worsening pain Reason for consult: Small-bowel obstruction, thickened colon Requesting provider: ED* *Anson Narrative: 67-year-old male presents to the emergency department today. He is a somewhat difficult historian. As that all of this started in August when he was in [place] and he fell hurt his shoulder ended up having for cracked vertebrae and that landed him in an assisted living facility in an [place] is though he usually lives on [facility]. He says that he has been having 6 weeks of abd ominal pain and diarrhea says it is better when he lays down and much worse when he sits up. He says he has been distended for 6 weeks he says he has been having trouble at the assisted living home because they are not giving him as much narcotic medicine as he is used to having for his chronic back pain. He also complains that this pain and distention is has been severe and they told him that the doctor would be in tomorrow. Rather than wait till tomorrow given his level of discomfort today he asked them to take him to the emergency room. He said that today the pain was markedly worse he says constant pain feels like stabbing. It is associated with diarrhea. He denies any bloody bowel movements. Never had anything like this before in the past. He denies any abdominal surgeries or hernias in the past. In addition to diarrhea abdominal pain and distention he denies nausea emesis endorses some hesitancy with his urine he thinks maybe he is having decreased urine output. he has had enlarged prostate in the past and needed a Mathur catheter. Meds Home Medications and Allergies Home Medications Medication Instructions Recorded Confirmed Type lisinopril 20 1 tab PO BID ##0 08/08/11 10/30/22 History mg-hydrochlorothiazide 12.5 mg tablet amlodipine 5 mg tablet 5 mg PO DAILY 10/30/22 10/30/22 History gabapentin 300 mg capsule 300 mg PO DAILY 10/30/22 10/30/22 History mesalamine 1.2 gram tablet,delayed 2.4 g PO DAILY 10/30/22 10/30/22 History release mirtazapine 15 mg tablet 15 mg PO ONCE PM 10/30/22 10/30/22 History oxycodone 15 mg tablet 15 mg PO PRN PRN Pain (Scale Score 10/30/22 10/30/22 History 4-6) pantoprazole 40 mg tablet,delayed 40 mg PO BID 10/30/22 10/30/22 History release sertraline 25 mg tablet 25 mg PO DAILY 10/30/22 10/30/22 History zolpidem 5 mg tablet 5 mg PO ONCE PM PRN Sleep 10/30/22 10/30/22 History Allergies Allergy/AdvReac Type Severity Reaction Status Date / Time Penicillins Allergy Mild Verified 10/30/22 11:51 tetracycline AdvReac Verified 10/30/22 11:51 Tetracycline Allergy Unknown Uncoded 10/30/22 11:51 Exam Vital Signs (past 8 hours): - 10/30/22 11:07 10/30/22 12:30 10/30/22 12:30 Temperature 98.1 F Pulse Rate 93 H 85 Respiratory Rate 20 Blood Pressure 145/77 H 110/67 Pulse Oximetry 100 99 Oxygen Delivery Method Room Air 10/30/22 13:00 10/30/22 13:30 Temperature Pulse Rate 87 77 Respiratory Rate Blood Pressure Pulse Oximetry 100 100 Oxygen Delivery Method Room Air Oxygen Delivery Method Room Air Const General: cooperative and other (Is somewhat disheveled and in mild distress but pretty comfortable at rest ) Nutritional Appearance: malnourished and thin Orientation: alert, awake, oriented to person, not oriented to place and oriented to time HENNM Head: normal to inspection Nose: nasal mucous membranes and turbinates normal (Attempt at NG tube in the left nostril was met with serious resistance. ) and other (Right nostril was clear and accommodated the NG tube) Eyes General: appearance normal, both eyes and all related structures (glasses) Resp Effort & Inspection: normal respiratory effort and able to speak in complete sentences Cardio Pulses: radial pulses present GI Other: His abdomen is markedly distended, it is tender in a non localized distribution. There is no guarding or rebound no peritoneal signs. He has no obvious surgical incisions and no hernias Other: Rectal exam revealed no stool in the vault however I believe his prostate did feel markedly enlarged. The Hemoccult test was lightly positive Skin Other: Does have some ecchymoses and is skin is thin Extrem Other: He has no peripheral edema in his bilateral lower or upper extremities and no tenderness in the calves Objective Imaging CT scan - abdomen: My impression: I do see areas of dilated small bowel and some decompressed small bowel as well the colon does have some thickened irritated areas. Etiology of this picture is very unclear especially given the patient's absence of abdominal surgeries. His history is quite odd and distribution of the colonic wall thickening is sort of more diverticula than watershed really etiology for this is unclear. Radiologist's impression: ?Stomach?is?mildly?distended.??Multiple?moderate ly?distended?loops?of?small?present.??There?appears?to?be?a?transition?point?wit hin?the?mid?line?pel vis?anteriorly?between?dilated?and?nondilated?small?bowel.??Distal?small?bowel?l oops?are?nondistende d.??Colon?demonstrates?moderate?diffuse?stool.??There?is?moderate?thickening?of? the?descending?and?s igmoid?colon.??Mild?fat?stranding?surrounds?the?descending?and?sigmoid?colon. Labs 10/30/22 11:25 10/30/22 11:25 Labs: Laboratory Results - last 24 hr 10/30/22 10/30/22 10/30/22 11:25 11:25 14:25 WBC 7.0 RBC 3.32 L Hgb 9.7 L Hct 28.8 L MCV 86.8 MCH 29.2 MCHC 33.6 RDW 15.7 H Plt Count 506 H Neut % (Auto) 56.4 Lymph % (Auto) 22.8 L [place] % (Auto) 19.0 H Eos % (Auto) 0.7 L Baso % (Auto) 1.1 Neut # (Auto) 3900 Lymph # (Auto) 1600 [place] # (Auto) 1300 H Eos # (Auto) 0 Baso # (Auto) 100 Sodium 123 L Potassium 3.3 L Chloride 91 L Carbon Dioxide 25 BUN 5 L Creatinine 0.66 Estimated GFR > 60 BUN/Creatinine Ratio 7.6 Glucose 128 H Lactate 2.3 H Calcium 8.0 L Total Bilirubin 0.3 AST 16 L ALT 16 Alkaline Phosphatase 129 H Total Protein 5.6 L Albumin 2.6 L Globulin 3.0 Albumin/Globulin Ratio 0.9 L [facility] Medical History (Updated 10/30/22 @ 18:40 by Cristal Rojas MD) Compression fracture Constipation Femur fracture Hypertension Osteoporosis Surgical History (Updated 10/30/22 @ 15:32 by Ari Campbell MD) H/O Spinal surgery History of hip surgery S/P operative procedure on shoulder Social History household members: spouse Tobacco & Substance Use Smoking Status: Current every day smoker Assessment & Plan Assessment and plan (1) SBO (small bowel obstruction): Status: Acute (2) Colitis: Status: Acute Assessment & Plan narrative: Reviewed CT scan. Recommend NG tube decompression. NG tube placement in ER was unsuccessful. I spent at least half an hour in preparation obtaining the materials etc. to place the NG tube myself at the bedside. There was a large amount of return and the patient felt significant relief. Because of the confusing findings on the CT scan especially with colitis and though I do see note of a transition point I really am not clear on an etiology for this obstruction. I think if the patient's condition does not deteriorate that NG t ube decompression is reasonable and I will plan a Gastrografin challenge tomorrow. He does have chronic pain and so will need some narcotic pain medication. I do not believe that narcotic pain medicine masks the severe pain of abdominal ischemia and so I do not subscribed to the method of not treating patients with possible small-bowel obstructions with any medication for abdominal pain. I do suspect he may have some urinary retention and his prostate is quite large I have ordered a bladder scan and a Mathur catheter as indicated. I do want to be sure that we carefully follow his urine output and make sure that he is properly resuscitated as needed. I have directed the nursing staff to contact me with any worsening of his condition especially increasing need for narcotics and worse abdominal pain or distention. Should be noted that small bowel obstruction in a patient who is never had any abdominal surgery is an indication for operative exploration in some cases, so being aware of this fact, I will follow very closely and please do not hesitate to call me with any questions or concerns. Also note that he had a colonoscopy in 2019 and was cleared for 5 year follow-up. He does have a father who had colon cancer.
--- NOTE | 2022-10-30 15:21 | PC.NURSE ---
NG insertion attempted by RN Almaz, and was not able to advance. This RN assisted and attempted again. During attempt patient began to gag and asked to have NG removed. NG tube removed. Pt declining NG at this time. Acute Care RN Sayda made aware.
--- NOTE | 2022-10-30 15:23 | P.HP_ITS ---
History of Present Illness History of Present Illness Date Patient Seen: 10/30/22 Time Patient Seen: 15:23 Chief complaint: worsening pain Narrative: This is a 67-year-old male with hypertension and chronic constipation who presents with 2 days of increased abdominal pain, worsening considerably this morning. He says his symptoms actually started 4 months ago when he stumbled on his patio, protecting his shoulder and fracturing four of his spinal vertebra. Since then he has been in a variety of assisted living facilities and has had diarrhea for the last month. He says 2 months ago he was actually in [place] for ?[employer] work on my stomach. ? He seems to mean that he needed to be disimpacted. He has no history of bowel obstruction in the past and no history of abdominal surgery. His CT scan shows a small bowel obstruction. He has hyponatremia, hypokalemia and anemia. He is from [facility] but has been living here in town at an assisted living facility. He has records that indicate he has some dementia but that's not evident on interviewing him today although he is unable to remember the names of the facility where he lives at? [facility] Medical History (Updated 10/30/22 @ 15:42 by Ari Campbell MD) Compression fracture Constipation Femur fracture Hypertension Osteoporosis Surgical History (Updated 10/30/22 @ 15:32 by Ari Campbell MD) H/O Spinal surgery History of hip surgery S/P operative procedure on shoulder Social History household members: spouse Smoking Status: Current every day smoker Meds Home Medications and Allergies Home Medications Medication Instructions Recorded Confirmed Type lisinopril 20 1 tab PO QDAY ##0 08/08/11 05/14/19 History mg-hydrochlorothiazide 12.5 mg tablet Allergies Allergy/AdvReac Type Severity Reaction Status Date / Time Penicillins Allergy Mild Verified 10/30/22 11:51 tetracycline AdvReac Verified 10/30/22 11:51 Tetracycline Allergy Unknown Uncoded 10/30/22 11:51 Review of Systems Review of Systems Narrative: Positive for abdominal pain. Positive for constipation. Positive for back pain Negative for fevers, chills, sweats, vomiting, bleeding, rashes, joint pain, seizures, headaches, new allergies. Exam Vital Signs (past 8 hours): - 10/30/22 11:07 10/30/22 12:30 10/30/22 12:30 Temperature 98.1 F Pulse Rate 93 H 85 Respiratory Rate 20 Blood Pressure 145/77 H 110/67 Pulse Oximetry 100 99 Oxygen Delivery Method Room Air 10/30/22 13:00 10/30/22 13:30 10/30/22 14:31 Temperature Pulse Rate 87 77 Respiratory Rate Blood Pressure 143/82 H Pulse Oximetry 100 100 Oxygen Delivery Method Room Air 10/30/22 14:31 Temperature Pulse Rate 90 Respiratory Rate Blood Pressure Pulse Oximetry 95 Oxygen Delivery Method Oxygen Delivery Method Room Air Narrative Exam Narrative: He is alert and oriented x3. Pupils are equally round and reactive to light and accommodation. Extra ocular muscles are intact. Sclerae are pink and nonicteric. Throat looks normal. No lymph nodes are felt head, neck, supraclavicular area. There is no thyromegaly No carotid bruits are heard JVD is less than 6 cm Abdomen is distended, diffusely tender, diminished bowel sounds. Heart is regular rate and rhythm without murmur Lungs are clear to auscultation bilaterally Extremities have no ankle edema Skin has no rash or jaundice Neurological exam: Cranial nerves 2-12 test intact There is no tremor Motor function is 3/5 throughout. Objective Imaging MRI - lumbar: Radiologist's impression: IMPRESSION:? ? 1. Severe osteoporosis with numerous compression fractures. ? 2. There are multiple compression fractures which are either acute or subacute, including L1, L2, L4, and L5.? Additionally, there are chronic compressions of T11 and L3. ? 3. Canal stenosis is mild to moderate at L2-L3 and mild at L3-L4. ? 4. Significant multilevel foraminal narrowing as described above, including severe right foraminal narrowing at L1-L2, moderate to severe right foraminal narrowing at L2-L3, and moderate to severe right foraminal narrowing at L5-S1. ? Comment:? Patient may potentially benefit from a discussion for possible multile pablito kyphoplasty, if the patient has significant acute lifestyle limiting pain symptomatology. ? Additional comment:? Cannot exclude underlying multiple myeloma in this patient.? Consider initiation of multiple myeloma workup.? Labs 10/30/22 11:25 10/30/22 11:25 Labs: Laboratory Results - last 24 hr 10/30/22 10/30/22 10/30/22 11:25 11:25 14:25 WBC 7.0 RBC 3.32 L Hgb 9.7 L Hct 28.8 L MCV 86.8 MCH 29.2 MCHC 33.6 RDW 15.7 H Plt Count 506 H Neut % (Auto) 56.4 Lymph % (Auto) 22.8 L [place] % (Auto) 19.0 H Eos % (Auto) 0.7 L Baso % (Auto) 1.1 Neut # (Auto) 3900 Lymph # (Auto) 1600 [place] # (Auto) 1300 H Eos # (Auto) 0 Baso # (Auto) 100 Sodium 123 L Potassium 3.3 L Chloride 91 L Carbon Dioxide 25 BUN 5 L Creatinine 0.66 Estimated GFR > 60 BUN/Creatinine Ratio 7.6 Glucose 128 H Lactate 2.3 H Calcium 8.0 L Total Bilirubin 0.3 AST 16 L ALT 16 Alkaline Phosphatase 129 H Total Protein 5.6 L Albumin 2.6 L Globulin 3.0 Albumin/Globulin Ratio 0.9 L Assessment & Plan Assessment & Plan narrative: This is a 67-year-old male with hypertension and chronic constipation who presents with 2 days of increased abdominal pain, worsening considerably this morning. He says his symptoms actually started 4 months ago when he stumbled on his patio, protecting his shoulder and fracturing four of his spinal vertebra. Since then he has been in a variety of assisted living facilities and has had diarrhea for the last month. He says 2 months ago he was actually in [place] for ?[employer] work on my stomach. ? He seems to mean that he needed to be disimpacted. He has no history of bowel obstruction in the past and no history of abdominal surgery. His CT scan shows a small bowel obstruction. Small Bowel Obstruction, present on admission. Active. -Unclear etiology -NPO bowel rest -Surgery is following -NGT placed in ED -Follow electrolytes Severe Osteoporosis, present on admission. Active. -6 compression fractures on recent Lumbar Spine MRI -Rule out Multiple Myeloma -Serum Immunofixation ordered Hypokalemia, present on admission. Active. -K 3.2 on 10/30 -Expect to go lower with NGT drainage in place. -Supplement IV and follow Hyponatremia, present on admission. Active. -Na 123 on 10/30 -Related to SBO -IV NS at maintenance doses -Follow electrolytes. Normocytic Anemia, present on admission. Active. -Hgb 9.7 on 10/30/22. MCV 86.8. -Rule out Multiple Myeloma, draw immunofixation -Follow Hgb HTN, present on admission. Chronic. -Holding Lisinopril/HCTZ His back up decision maker is his Blanca Schulz for DVT prevention
[2022-10-30 16:29] LABS: Reflexed Lactate in 2 Hours Y
[2022-10-30] MEDS: HYDROMORPHONE 0.5 MG INJ IV (17:26)
[2022-10-30] MEDS: DEXTROSE 5%-0.9% NS 1,000 ML 100 ML IV (17:27)
--- NOTE | 2022-10-30 18:36 | DI.RAD.S_ITS ---
PROCEDURE: XR ABDOMEN 1V INDICATIONS: NG tube placement TECHNIQUE: One view of the abdomen acquired. COMPARISON: [facility], CT, CT ABDOMEN PELVIS W CON, 10/30/2022, 12:14. FINDINGS: Surgical changes and devices: A gastric tube is seen, with the tip coiled overlying the fundus of the stomach. Left femoral neck hardware is partially seen. Bowel: Bowel gas pattern is normal. Soft tissues: No suspicious abdominal calcifications. Visualized solid organ contours appear normal in size. Excreting contrast can be seen within the urinary bladder. Bones: No suspicious bony lesions. Age-appropriate bony degenerative changes are seen. IMPRESSION: The tip of the gastric tube can be seen overlying the fundus of the stomach. Dictated by: Ang Gibson M.D. on 10/30/2022 at 18:27 Approved by: Ang Gibson M.D. on 10/30/2022 at 18:28
[2022-10-30] MEDS: TETRACAINE/BENZOCAINE/BUTAMBEN (CETACAINE) BOTTLE 1 SPRAY TOP (18:40)
[2022-10-30] MEDS: HYDROMORPHONE 1 MG INJ IV ×2 (19:52→23:01)
[2022-10-30 23:30] LABS: BUN Creatinine Ratio 6.7 (6-22); Blood Urea Nitrogen 4 mg/dL (9-20); Calcium 7.4 mg/dL (8.4-10.2); Carbon Dioxide 27 mmol/L (22-32); Chloride 95 mmol/L (98-107); Estimated Glomerular Filt Rate > 60 mL/min (>60); Glucose 142 mg/dL (80-110); HEMOLYSIS 49 (0-50); Potassium 3.5 mmol/L (3.4-5.1); Sodium 123 mmol/L (137-145)
[2022-10-31] VITALS (17 sets, daily range): BP systolic 103–152; BP diastolic 66–88; PULSE 89–127; RESP 10–26; TEMP 36.2–37; O2SAT 92–100; BMI 22.2
--- NOTE | 2022-10-31 | PATH_ITS ---
[facility] Accession Number: [id number] No. of containers..01 Tissue . 01 Material submitted: . body - MESENTERIC LESION . 01 Diagnosis: Mesentery, Biopsy: Fibrous tissue with mild acute inflammation. Negative for neoplasia. MRV 11/14/2022 2223 Local . 01 Electronically signed: . Gricelda Grove MD, Pathologist NPI- [id number] . 01 Gross description: . The specimen is received in formalin, labeled with the patient's name, , and mesenteric lesion, and consists of a single fragment of pink-keys soft tissue measuring 0.7 x 0.5 x 0.3 cm. One aspect is inked blue. The tissue is bisected and entirely submitted in cassette A1. ([id number]) /[facility] 11/05/20221111 Local . 01 Pathologist provided ICD-10: R52 . 01 CPT . 304559 Specimen Comment: A courtesy copy of this report has been sent to [facility] Pathology Performed at: 01 [facility] [address] [place] [address], [place], [place] [id number] MD Chris Garcia MD Phone: [phone]
[2022-10-31] MEDS: HYDROMORPHONE 1 MG INJ IV ×5 (02:01→21:27)
[2022-10-31] MEDS: DEXTROSE 5%-0.9% NS 1,000 ML 100 ML IV ×2 (03:58→17:09)
--- NOTE | 2022-10-31 05:00 | DI.RAD.S_ITS ---
PROCEDURE: XR GASTROGRAFIN CHALLENGE COMPARISON: [facility], CR, XR ABDOMEN 1V, 10/30/2022, 18:37. [facility], CT, CT ABDOMEN PELVIS W CON, 10/30/2022, 12:14. INDICATIONS: SBO FINDINGS: There is a nasogastric tube in the stomach. Oral contrast was administered through the NG tube. Oral contrast can be seen in dilated proximal small intestine which measures up to 5.5 cm. There is paucity of distal small bowel gas. No definitive contrast within the colon 4 hours after oral contrast administration. IMPRESSION: Persistent small bowel obstruction. Dictated by: Efrain Hanson M.D. on 10/31/2022 at 13:05 Approved by: Efrain Hanson M.D. on 10/31/2022 at 13:07
[2022-10-31 05:14] LABS: Add Manual Diff / Slide Review NO; Basophils Absolute Auto 100 /uL (0-100); Basophils Percent Auto 0.6 % (0-2); Eosinophils Absolute Auto 100 /uL (0-450); Eosinophils Percent Auto 0.6 % (2-4); Hematocrit 26.8 % (41-53); Lymphocytes Absolute Auto 1100 /uL (1100-4500); Lymphocytes Percent Auto 12.7 % (25-40); Mean Corpuscular HGB Conc 33.7 % (30-36); Mean Corpuscular Hemoglobin 29.2 PG (26-34); Mean Corpuscular Volume 86.8 fL (80-100); Monocytes Absolute Auto 1200 /uL (0-900); Neutrophils Absolute Auto 6100 /uL (1500-7000); Neutrophils Percent Auto 72.1 % (50-75); Platelet Count 480 X10^3/uL (150-400); Red Blood Cell Count 3.09 X10^6/uL (4.5-5.9); Red Cell Distribution Width 15.2 % (11.6-14.8); White Blood Cell Count 8.4 X10^3/uL (4.5-11.0)
[2022-10-31 05:17] LABS: Alanine Aminotransferase 15 IU/L (<50); Albumin 2.3 g/dL (3.5-5.0); Albumin Globulin Ratio 0.9 (1.0-2.8); Alkaline Phosphatase 100 U/L (38-126); Aspartate Aminotransferase 18 IU/L (17-59); BUN Creatinine Ratio 5.1 (6-22); Bilirubin Total 0.4 mg/dL (0.2-1.3); Blood Urea Nitrogen 3 mg/dL (9-20); Calcium 7.6 mg/dL (8.4-10.2); Carbon Dioxide 28 mmol/L (22-32); Chloride 95 mmol/L (98-107); Estimated Glomerular Filt Rate > 60 mL/min (>60); Globulin 2.7 g/dL (1.7-4.1); Glucose 120 mg/dL (80-110); HEMOLYSIS 38 (0-50); Potassium 3.3 mmol/L (3.4-5.1); Sodium 125 mmol/L (137-145)
[2022-10-31] MEDS: POTASSIUM CHLORIDE IN WATER 10 MEQ/100 ML PIGGYBACK 100 MEQ IV ×4 (08:11→11:37)
[2022-10-31] MEDS: ENOXAPARIN 40 MG/0.4 ML SYRINGE SUBCUT (09:22)
--- NOTE | 2022-10-31 12:01 | CM.DANOTE ---
DCP Brief Note: Patient is a 67yo male here following worsening abdominal pain and small bowel obstruction. PCP Fabian Astudillo [employer] and [facility] ENGINE BUILDUP MECHANIC reviewed EMR. Per provider, surgery is being consulted at this time for patient's small bowel obstruction. Per surgery note, NG tube was placed. Per nursing staff/paper chart, patient arrived here from [facility]. Per nursing staff he may be baseline forgetful. ENGINE BUILDUP MECHANIC called Elli at [facility]. Elli reports patient came to them from [facility]. Elli reports they can take him back when he is medically cleared to do so. ENGINE BUILDUP MECHANIC entered room and introduced self and role. Patient was extremely groggy throughout interaction. Patient was able to confirm his PCP and give verbal permission to CM team to speak with his for the d/c plan. Patient was able to confirm he is willing to return to [facility] upon d/c from here. Nursing staff reported that he received pain medication right before this ENGINE BUILDUP MECHANIC went to speak with him that could explain the grogginess. ENGINE BUILDUP MECHANIC lvm with Blanca ([phone]). Plan: patient will likely d/c to [facility] when medically stable. CM beata will continue to attempt a full assessment either with patient when less medicated or with Blanca. CM team will continue to follow closely. GISELLA Macdonald Discharge Planning/Care Management CM Discharge Assessment Start: 10/31/22 11:57 Freq: Status: Active Protocol: Document 10/31/22 11:57 (Rec: 10/31/22 12:00 [id number]) Discharge Planning Assessment Assigned Safety Net Maker GISELLA Taylor DPOA/Assigned Designee Name Blanca () Contact Information [phone] Advance Directives? Yes: POLST form on file Advance Directives on File Yes: POLST on file History Provided By Patient,Medical Record Prior Living Arrangements House Household Members spouse,children Facility Name Admitted From: [facility] Willing to Return to Facility? Yes Is patient alert and oriented? No: patient medicated durnig time of assessment, very groggy Patient/Family Preference Long Term Facility Comment [facility] able to accept him back when medically cleared Discharge Plan Long Term Facility Transportation Arrangement facility transport SNF/HH Preference Return to [facility] Has Agency SNF been contacted Yes Whiteboard Updated in Patient Room with Yes name and ext. # of Safety Net Maker Review Status In Process Next Review Type Continued Stay Review
--- NOTE | 2022-10-31 13:48 | PC.NURSE ---
Addendum entered by Nesha Camacho R.N. 10/31/22 17:14: Pt arrived from PACU at approximately 1710. SCDs attached, vitals obtained and stable, pt on RA 98%, rousable but fatigued. Dressing CDI, Robinson drain in place. Bed alarm active, call light within reach. Care ongoing. Original Note: Day shift: Pt alert to self, situation, time. C/o pain, treated with ordered medications (See MAR). This RN called surgeon to clarify imaging orders. Dr. Sosa at bedside, discussing surgery with pt. Pt wheeled in bed by RN Nini and PCT Dakota to OR at approximately 1318.
--- NOTE | 2022-10-31 14:00 | P.PN_ITS ---
Subjective Subjective Date Patient Seen: 10/31/22 Time Patient Seen: 14:01 Interval history: Patient states that he is still having abdominal pain he is not passing any gas. Though the NG tube did help him feel a little bit better he is still having a lot of pain. He states that he does not remember having the NG tube placed yesterday. And he can not at this time remember his own or his 's phone number. Per the bedside RN patient continued to have pain throughout the night and needed multiple doses of narcotics. The Gastrografin challenge additionally showed minimal progression of contrast and small bowel loops continued to be persistently dilated after approximately 17 hours of NG tube decompression. The Gastrografin has had over 4 hours and has not progressed. Exam Vital Signs (past 8 hours): - 10/31/22 09:30 10/31/22 12:17 10/31/22 13:55 Temperature 97.7 F 98.6 F Pulse Rate 89 98 H Respiratory Rate 10 L 17 Blood Pressure 114/79 103/66 Pulse Oximetry 98 100 Oxygen Delivery Method Room Air Room Air Oxygen Delivery Method Room Air Oxygen Flow Rate 0 Const General: cooperative, comfortable and No acute distress Nutritional Appearance: malnourished and thin Orientation: alert and awake Limitations: other limitations ( It appears he has some memory problems) HENMT Nose: other ( NG tube in place gastric contents coming out) Resp Effort & Inspection: normal respiratory effort and able to speak in complete sentences GI Palpation: soft Other: persistently distended abdomen still fairly tender in a nonlocalized fashion without peritoneal signs. Objective Labs 10/31/22 04:50 10/31/22 04:50 Labs: Laboratory Results - last 24 hr 10/30/22 10/30/22 10/30/22 14:25 16:45 23:10 WBC RBC Hgb Hct MCV MCH MCHC RDW Plt Count Neut % (Auto) Lymph % (Auto) [place] % (Auto) Eos % (Auto) Baso % (Auto) Neut # (Auto) Lymph # (Auto) [place] # (Auto) Eos # (Auto) Baso # (Auto) Sodium 123 L Potassium 3.5 Chloride 95 L Carbon Dioxide 27 BUN 4 L Creatinine 0.60 L Estimated GFR > 60 BUN/Creatinine Ratio 6.7 Glucose 142 H Lactate 2.3 H 1.0 Calcium 7.4 L Total Bilirubin AST ALT Alkaline Phosphatase Total Protein Albumin Globulin Albumin/Globulin Ratio 10/31/22 10/31/22 04:50 04:50 WBC 8.4 RBC 3.09 L Hgb 9.0 L Hct 26.8 L MCV 86.8 MCH 29.2 MCHC 33.7 RDW 15.2 H Plt Count 480 H Neut % (Auto) 72.1 Lymph % (Auto) 12.7 L [place] % (Auto) 14.0 Eos % (Auto) 0.6 L Baso % (Auto) 0.6 Neut # (Auto) 6100 Lymph # (Auto) 1100 [place] # (Auto) 1200 H Eos # (Auto) 100 Baso # (Auto) 100 Sodium 125 L Potassium 3.3 L Chloride 95 L Carbon Dioxide 28 BUN 3 L Creatinine 0.59 L Estimated GFR > 60 BUN/Creatinine Ratio 5.1 L Glucose 120 H Lactate Calcium 7.6 L Total Bilirubin 0.4 AST 18 ALT 15 Alkaline Phosphatase 100 Total Protein 5.0 L Albumin 2.3 L Globulin 2.7 Albumin/Globulin Ratio 0.9 L PFSH Medical History (Updated 10/30/22 @ 18:40 by Cristal Rojas MD) Compression fracture Constipation Femur fracture Hypertension Osteoporosis Surgical History (Updated 10/30/22 @ 15:32 by Ari Campbell MD) H/O Spinal surgery History of hip surgery S/P operative procedure on shoulder Social History household members: spouse and children Smoking Status: Current every day smoker alcohol intake: current Assessment & Plan Assessment and plan (1) Colitis: Status: Acute (2) SBO (small bowel obstruction): Status: Acute Assessment & Plan narrative: Patient has a persistent high-grade small bowel obstruction which has not shown any significant improvement. Additionally he is not had any previous abdominal surgeries and therefore chances that this will resolve conservatively is very low the recommendation is to proceed with exploratory surgery. I discussed the risks benefits and alternatives with Mr. Valencia: he understands the risks and though he has some baseline memory problems I think that he does understand however he understands the amount of pain and difficulty that he is in and surgery is something that he definitely wants at this time.
[2022-10-31] MEDS: LACTATED RINGERS 1,000 ML 100 ML IV ×2 (14:03→15:04)
[2022-10-31] MEDS: CEFOTETAN 2 GM in SODIUM CHLORIDE 0.9% 100 ML IV (14:20)
--- NOTE | 2022-10-31 14:35 | SUR.OPER ---
Supine on padded OR bed, head on pillow, arms secured on padded arm boards at <90 degrees abduction, legs uncrossed, safety belt at thigh, tape over blanket over lower legs.
[2022-10-31] MEDS: BUPIVACAINE 0.5% W/ EPI (PF) 30 ML VIAL INJ (14:39)
--- NOTE | 2022-10-31 14:45 | PM.PN.1 ---
Subjective Subjective Interval history: 67 M admitted with bowel obstruction, still having intermittent nausea and abdominal pain. Gastrograffin challenge with persistent obstruction. Surgery taking to the OR today. Exam Vital Signs (past 8 hours): - 10/31/22 09:30 10/31/22 12:17 10/31/22 13:55 Temperature 97.7 F 98.6 F Pulse Rate 89 98 H Respiratory Rate 10 L 17 Blood Pressure 114/79 103/66 Pulse Oximetry 98 100 Oxygen Delivery Method Room Air Room Air Oxygen Delivery Method Room Air Oxygen Flow Rate 0 Narrative Exam Narrative: General:? Patient is well developed and well nourished, appears uncomfortable, NG tube in place HEENT:? Normocephalic, atraumatic, extraocular muscles intact, oral pharynx is clear and mucous membranes are dry. Neck: supple and symmetric, trachea is midline, no cervical adenopathy. Negative for JVD Chest:? Normal AP diameter and contour without kyphoscoliosis, no tachypnea, equal chest rise bilaterally. Lungs:? CTA b/l no wheezing rhonchi or rales. Cardio:?RRR no m/r/g. Abdomen: soft, but distended, mild diffuse tenderness. Musculoskeletal:? Muscle strength and tone are equal within normal limits, no deformity. Extremities: No edema or joint effusions. No cyanosis or clubbing. Skin:? Pale,? Warm to touch,dry and intact without rashes, ulcerations or petechiae.? Neuro:? Alert and orientated x3,? sensation to touch intact in all extremities, no gross deficits noted of cranial nerves. Psych:? Patient has a well-kept appearance, appropriate affect, mental status attitude thought context and judgment are appropriate for age. Objective Labs 10/31/22 04:50 10/31/22 04:50 Labs: Laboratory Results - last 24 hr 10/30/22 10/30/22 10/30/22 14:25 16:45 23:10 WBC RBC Hgb Hct MCV MCH MCHC RDW Plt Count Neut % (Auto) Lymph % (Auto) [place] % (Auto) Eos % (Auto) Baso % (Auto) Neut # (Auto) Lymph # (Auto) [place] # (Auto) Eos # (Auto) Baso # (Auto) Sodium 123 L Potassium 3.5 Chloride 95 L Carbon Dioxide 27 BUN 4 L Creatinine 0.60 L Estimated GFR > 60 BUN/Creatinine Ratio 6.7 Glucose 142 H Lactate 2.3 H 1.0 Calcium 7.4 L Total Bilirubin AST ALT Alkaline Phosphatase Total Protein Albumin Globulin Albumin/Globulin Ratio 10/31/22 10/31/22 04:50 04:50 WBC 8.4 RBC 3.09 L Hgb 9.0 L Hct 26.8 L MCV 86.8 MCH 29.2 MCHC 33.7 RDW 15.2 H Plt Count 480 H Neut % (Auto) 72.1 Lymph % (Auto) 12.7 L [place] % (Auto) 14.0 Eos % (Auto) 0.6 L Baso % (Auto) 0.6 Neut # (Auto) 6100 Lymph # (Auto) 1100 [place] # (Auto) 1200 H Eos # (Auto) 100 Baso # (Auto) 100 Sodium 125 L Potassium 3.3 L Chloride 95 L Carbon Dioxide 28 BUN 3 L Creatinine 0.59 L Estimated GFR > 60 BUN/Creatinine Ratio 5.1 L Glucose 120 H Lactate Calcium 7.6 L Total Bilirubin 0.4 AST 18 ALT 15 Alkaline Phosphatase 100 Total Protein 5.0 L Albumin 2.3 L Globulin 2.7 Albumin/Globulin Ratio 0.9 L PFSH Medical History (Updated 10/30/22 @ 18:40 by Cristal Rojas MD) Compression fracture Constipation Femur fracture Hypertension Osteoporosis Surgical History (Updated 10/30/22 @ 15:32 by rAi Campbell MD) H/O Spinal surgery History of hip surgery S/P operative procedure on shoulder Social History household members: spouse and children Smoking Status: Current every day smoker alcohol intake: current Assessment & Plan Assessment & Plan narrative: This is a 67-year-old male with hypertension admitted with an SBO, failed conservative management now going to OR with general surgery Small Bowel Obstruction, present on admission. Active. -Unclear etiology -failed conservative managemetn -appreciate surgical consultation and management. Severe Osteoporosis, present on admission. Active. -6 compression fractures on recent Lumbar Spine MRI -Rule out Multiple Myeloma -Serum Immunofixation ordered Hypokalemia, present on admission. Active. -Supplement IV and follow Hyponatremia, present on admission. Active. -Na 123 on 10/30 -Related to SBO -IV NS at maintenance doses -Follow electrolytes. Normocytic Anemia, present on admission. Active. -Hgb 9.7 on 10/30/22. MCV 86.8. -Rule out Multiple Myeloma, immunofixation pending -Follow Hgb HTN, present on admission. Chronic. -Holding Lisinopril/HCTZ Code: FULL, His back up decision maker is his Blanca SCDs for DVT now, Lovenox after OR
[2022-10-31] MEDS: BUPIVACAINE LIPOSOME 266 MG/20 ML VIAL INJ (15:29)
--- NOTE | 2022-10-31 15:48 | PM.OP.1 ---
Operative Date/Time/Diagnoses Date of procedure: 10/31/22 Time of procedure: 15:48 Pre-op diagnosis: Small bowel obstruction Post-op diagnosis: same Procedure & Clinicians Procedure: Exploratory laparotomy Lysis of adhesions Colotomy Same procedure as scheduled: Yes Surgeon: Ochoa Sosa [employer] Mechanical Engineer: Cristal Rojas Operative Notes Procedure in detail: Cristal Rojas MD provided assistance with exposure, retraction and closure of incisions. The patient is a 59-year-old man who presented with a small-bowel obstruction. He was consented for an exploratory laparotomy and any indicated procedures. The patient was cefotetan. The patient was brought to the operating room and placed on the table in the supine position. General endotracheal anesthesia was induced. The abdomen was prepped and draped in the usual fashion and a time-out was performed. We made a midline incision from just above the umbilicus to the pubis. We dissected down to the fascia which was scored with cautery. We opened the peritoneum sharply between tonsil clamps. The abdomen was entered. Some thin ascites were suctioned. The Book[employer]ter retractor was used. There were several adhesions between loops of small bowel and the sigmoid colon and rectum. One of these adhesions appeared to be the cause of the bowel obstruction and was between a loop of ileum and the anterior proximal rectum. In the process of taking down this adhesion a small defect was created in the anterior proximal rectum. There was minimal spillage. Initially we closed the colotomy with a single 2-0 silk stitch. Once we completely freed the adhesions and allowed us to establish good exposure of the rectum we repaired the colotomy with 4 interrupted 2-0 silk sutures. There was also a small serosal defect that was noted in the sigmoid colon where one of the other adhesions had been taken down and this was closed with several interrupted serosal bites with 2-0 silk sutures. We then inspected the remainder of the left and right colon which was grossly normal. We then ran the small bowel and there were no further adhesions or abnormalities. There was 1 clamp of gelatinous substance in the left abdomen which was removed sent to cytology. We took a small biopsy from one of the areas were there was some adhesive tissue along the small bowel mesentery. The liver was palpated was normal. We then placed a 19 round Robinson drain into the pelvis alongside the colotomy and brought it out through a right lower quadrant stab incision. We then injected some Exparel into the fascia and closed the fascia with running 0 PDS suture. The skin was closed with calvin. Dressings were applied. The patient was awakened brought to recovery room. EBL: 20 mL Specimens: Gelatinous peritoneal substance and fibrous tissue from a small bowel adhesion Post-operative Condition: stable Disposition: PACU
[2022-10-31] MEDS: HYDROMORPHONE 2 MG INJ IV ×3 (16:09→16:23)
[2022-10-31] MEDS: HYDROMORPHONE 0.5 MG INJ IV (18:41)
[2022-11-01] VITALS: BP 126/79; PULSE 102; RESP 16; TEMP 36.6; O2SAT 99
[2022-11-01] MEDS: HYDROMORPHONE 1 MG INJ IV ×8 (00:07→20:58)
[2022-11-01] MEDS: ZOLPIDEM 5 MG TABLET PO ×2 (01:53→20:58)
[2022-11-01] MEDS: DEXTROSE 5%-0.9% NS 1,000 ML 100 ML IV ×3 (03:22→22:42)
[2022-11-01 06:08] LABS: Add Manual Diff / Slide Review NO; Basophils Absolute Auto 0 /uL (0-100); Basophils Percent Auto 0.3 % (0-2); Eosinophils Absolute Auto 0 /uL (0-450); Hematocrit 27.6 % (41-53); Hemoglobin 9.2 g/dL (13.5-17.5); Lymphocytes Absolute Auto 1000 /uL (1100-4500); Lymphocytes Percent Auto 8.7 % (25-40); Mean Corpuscular HGB Conc 33.2 % (30-36); Mean Corpuscular Hemoglobin 28.9 PG (26-34); Mean Corpuscular Volume 87.1 fL (80-100); Monocytes Absolute Auto 1100 /uL (0-900); Monocytes Percent Auto 9.5 % (3-14); Neutrophils Absolute Auto 9700 /uL (1500-7000); Neutrophils Percent Auto 81.5 % (50-75); Platelet Count 501 X10^3/uL (150-400); Red Blood Cell Count 3.17 X10^6/uL (4.5-5.9); Red Cell Distribution Width 15.7 % (11.6-14.8); White Blood Cell Count 11.9 X10^3/uL (4.5-11.0)
[2022-11-01 06:15] LABS: Blood Urea Nitrogen 6 mg/dL (9-20); Calcium 7.5 mg/dL (8.4-10.2); Carbon Dioxide 26 mmol/L (22-32); Chloride 96 mmol/L (98-107); Estimated Glomerular Filt Rate > 60 mL/min (>60); Glucose 148 mg/dL (80-110); HEMOLYSIS < 15 (0-50); Magnesium 1.6 mg/dL (1.6-2.3); Potassium 3.7 mmol/L (3.4-5.1); Sodium 126 mmol/L (137-145)
[2022-11-01 08:00] VITALS: BP 125/74; PULSE 98; RESP 13; TEMP 36.3; O2SAT 100
--- NOTE | 2022-11-01 14:25 | P.PN_ITS ---
Subjective Subjective Date Patient Seen: 11/01/22 Time Patient Seen: 14:26 Interval history: Feeling better today. No flatus. Some incisional pain as expected. The Mathur catheter has been removed. Exam Vital Signs (past 8 hours): - 11/01/22 08:00 Temperature 97.4 F L Pulse Rate 98 H Respiratory Rate 13 Blood Pressure 125/74 Pulse Oximetry 100 Oxygen Flow Rate 0 Oxygen Delivery Method Room Air Oxygen Flow Rate 0 Narrative Exam Narrative: Abdomen soft Drain output is serosanguineous Objective Labs 11/01/22 05:54 11/01/22 05:54 Labs: Laboratory Results - last 24 hr 11/01/22 11/01/22 05:54 05:54 WBC 11.9 H RBC 3.17 L Hgb 9.2 L Hct 27.6 L MCV 87.1 MCH 28.9 MCHC 33.2 RDW 15.7 H Plt Count 501 H Neut % (Auto) 81.5 H Lymph % (Auto) 8.7 L [place] % (Auto) 9.5 Eos % (Auto) 0.0 L Baso % (Auto) 0.3 Neut # (Auto) 9700 H Lymph # (Auto) 1000 L [place] # (Auto) 1100 H Eos # (Auto) 0 Baso # (Auto) 0 Sodium 126 L Potassium 3.7 Chloride 96 L Carbon Dioxide 26 BUN 6 L Creatinine 0.67 Estimated GFR > 60 BUN/Creatinine Ratio 9.0 Glucose 148 H Calcium 7.5 L Magnesium 1.6 PFSH Medical History (Updated 11/01/22 @ 14:26 by Ochoa Sosa MD) Compression fracture Constipation Femur fracture Hypertension Osteoporosis Surgical History (Updated 10/30/22 @ 15:32 by Ari Campbell MD) H/O Spinal surgery History of hip surgery S/P operative procedure on shoulder Social History household members: spouse and children Smoking Status: Current every day smoker alcohol intake: current Assessment & Plan Assessment and plan (1) Postoperative examination: Status: Acute Plan Doing well following exploratory laparotomy with lysis of adhesions and repair of 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 Drain output is serosanguineous. We will discontinue the NG tube today and start him on clears. We will start Lovenox today.
--- NOTE | 2022-11-01 14:57 | CM.DPC ---
DCP Continued: ASSEMBLY LINE ROBOT OPERATOR reviewed EMR. Per provider, surgery occurred yesterday. Will continue NG tube today. Per surgical PN, will start on clears today. Per Elli at [facility], they are able to accept him back when medically cleared. Per nursing staff, he appears to be at his baseline cognition. Nursing staff say he reports being in a lot of pain at this time. ASSEMBLY LINE ROBOT OPERATOR entered room and reintroduced self and role. Patient was much more alert today than in previous interactions, appeared Ox4. Patient was groaning and holding in stomach in pain throughout interaction and asked to keep it short. Patient reports being open to returning to [facility] upon d/c. Patient reports his gets off work around 6pm and likely won't answer the phone before then. Patient said he would be the one to update her on the d/c plan. Plan: patient will likely d/c back to [facility] when medically stable. CM team will continue to follow closely. GISELLA Macdonald
--- NOTE | 2022-11-01 15:16 | PM.PN.1 ---
Subjective Subjective Interval history: 67 M admitted with bowel obstruction, now POD #1 s/p ex-lap, MARGARETH, and colotomy. Doing okay today, with incisional pain. No flatus yet, mildly nauseous this AM with NG still in place. Surgery removed NG and okayed clears later in the day. Exam Vital Signs (past 8 hours): - 11/01/22 08:00 Temperature 97.4 F L Pulse Rate 98 H Respiratory Rate 13 Blood Pressure 125/74 Pulse Oximetry 100 Oxygen Flow Rate 0 Oxygen Delivery Method Room Air Oxygen Flow Rate 0 Narrative Exam Narrative: General:? Patient is well developed and well nourished, appears uncomfortable, NG tube in place HEENT:? Normocephalic, atraumatic, extraocular muscles intact, oral pharynx is clear and mucous membranes are dry. Neck: supple and symmetric, trachea is midline, no cervical adenopathy. Negative for JVD Chest:? Normal AP diameter and contour without kyphoscoliosis, no tachypnea, equal chest rise bilaterally. Lungs:? CTA b/l no wheezing rhonchi or rales. Cardio:?RRR no m/r/g. Abdomen: soft, tender around incisions, non-distended. EFREM serosanguinous output. Musculoskeletal:? Muscle strength and tone are equal within normal limits, no deformity. Extremities: No edema or joint effusions. No cyanosis or clubbing. Skin:? Pale,? Warm to touch,dry and intact without rashes, ulcerations or petechiae.? Neuro:? Alert and orientated x3,? sensation to touch intact in all extremities, no gross deficits noted of cranial nerves. Psych:? Patient has a well-kept appearance, appropriate affect, mental status attitude thought context and judgment are appropriate for age. Objective Labs 11/01/22 05:54 11/01/22 05:54 Labs: Laboratory Results - last 24 hr 11/01/22 11/01/22 05:54 05:54 WBC 11.9 H RBC 3.17 L Hgb 9.2 L Hct 27.6 L MCV 87.1 MCH 28.9 MCHC 33.2 RDW 15.7 H Plt Count 501 H Neut % (Auto) 81.5 H Lymph % (Auto) 8.7 L [place] % (Auto) 9.5 Eos % (Auto) 0.0 L Baso % (Auto) 0.3 Neut # (Auto) 9700 H Lymph # (Auto) 1000 L [place] # (Auto) 1100 H Eos # (Auto) 0 Baso # (Auto) 0 Sodium 126 L Potassium 3.7 Chloride 96 L Carbon Dioxide 26 BUN 6 L Creatinine 0.67 Estimated GFR > 60 BUN/Creatinine Ratio 9.0 Glucose 148 H Calcium 7.5 L Magnesium 1.6 PFSH Medical History (Updated 11/01/22 @ 14:26 by Ochoa Sosa MD) Compression fracture Constipation Femur fracture Hypertension Osteoporosis Surgical History (Updated 10/30/22 @ 15:32 by Ari Campbell MD) H/O Spinal surgery History of hip surgery S/P operative procedure on shoulder Social History household members: spouse and children Smoking Status: Current every day smoker alcohol intake: current Assessment & Plan Assessment & Plan narrative: This is a 67-year-old male with hypertension admitted with an SBO, failed conservative management now POD #1 ex-lap, MARGARETH, and colotomy with surgery Small Bowel Obstruction, present on admission. Active. -now POD#1 s/p above operation. -management per surgical service, advance diet per surgery -continue pain control, IV fluids today. Severe Osteoporosis, present on admission. Active. -6 compression fractures on recent Lumbar Spine MRI -Rule out Multiple Myeloma -Serum Immunofixation ordered Hypokalemia, present on admission. Active. -Supplement IV and follow Hyponatremia, present on admission. Active. -Na 123 on 10/30 -Related to SBO -on D5-NS with slow improvement. -Follow electrolytes. Normocytic Anemia, present on admission. Active. -Hgb 9.7 on 10/30/22. MCV 86.8. -Rule out Multiple Myeloma, immunofixation pending -Follow Hgb, has been stable here thus far HTN, present on admission. Chronic. -Holding Lisinopril/HCTZ. Would continue to hold hctz given hyponatremia. Code: FULL, His back up decision maker is his Blanca SCDs for DVT ppx now, Lovenox ordered for tomorrow.
[2022-11-01 16:00] VITALS: BP 162/90; PULSE 104; RESP 20; TEMP 36.3; O2SAT 100
[2022-11-01] MEDS: HYDROCODONE/ACET 5/325 TABLET 1 TAB PO ×2 (17:24→21:35)
--- NOTE | 2022-11-01 18:17 | PC.NURSE ---
Mathur d/c'd today, NG removed, no nausea, switched from Dilaudid IV to scheduled Vicodin. Pt up to bathroom to attempt to void without out success-states he does not feel like he needs to void. Bladder scanned Pt at approx. 1800 with result of only 10cc urine. Notified Dr. Rhodes.
[2022-11-01 22:57] VITALS: BP 133/79; PULSE 96; RESP 18; TEMP 36.4; O2SAT 98
[2022-11-02] MEDS: HYDROCODONE/ACET 5/325 TABLET 1 TAB PO ×3 (00:44→08:07)
[2022-11-02] MEDS: HYDROMORPHONE 1 MG INJ IV (03:42)
[2022-11-02 05:26] VITALS: BP 122/69; PULSE 85; RESP 18; TEMP 35.9; O2SAT 97
[2022-11-02 05:51] LABS: Add Manual Diff / Slide Review NO; Basophils Absolute Auto 0 /uL (0-100); Basophils Percent Auto 0.3 % (0-2); Eosinophils Absolute Auto 100 /uL (0-450); Hematocrit 21.2 % (41-53); Hemoglobin 7.2 g/dL (13.5-17.5); Lymphocytes Absolute Auto 1500 /uL (1100-4500); Lymphocytes Percent Auto 25.2 % (25-40); Mean Corpuscular HGB Conc 34.1 % (30-36); Mean Corpuscular Hemoglobin 29.6 PG (26-34); Mean Corpuscular Volume 86.8 fL (80-100); Monocytes Absolute Auto 1000 /uL (0-900); Monocytes Percent Auto 15.8 % (3-14); Neutrophils Absolute Auto 3500 /uL (1500-7000); Neutrophils Percent Auto 57.7 % (50-75); Platelet Count 375 X10^3/uL (150-400); Red Blood Cell Count 2.44 X10^6/uL (4.5-5.9); Red Cell Distribution Width 15.2 % (11.6-14.8); White Blood Cell Count 6.1 X10^3/uL (4.5-11.0)
[2022-11-02 06:05] LABS: BUN Creatinine Ratio 9.5 (6-22); Blood Urea Nitrogen 6 mg/dL (9-20); Carbon Dioxide 23 mmol/L (22-32); Chloride 100 mmol/L (98-107); Estimated Glomerular Filt Rate > 60 mL/min (>60); Glucose 95 mg/dL (80-110); HEMOLYSIS < 15 (0-50); Magnesium 1.6 mg/dL (1.6-2.3); Potassium 3.3 mmol/L (3.4-5.1); Sodium 127 mmol/L (137-145)
[2022-11-02] MEDS: ENOXAPARIN 40 MG/0.4 ML SYRINGE SUBCUT (08:08)
[2022-11-02] MEDS: DEXTROSE 5%-0.9% NS 1,000 ML 100 ML IV (08:13)
[2022-11-02 09:35] VITALS: BP 142/76; PULSE 95; RESP 12; TEMP 36.4; O2SAT 99
--- NOTE | 2022-11-02 09:58 | P.PN_ITS ---
Subjective Subjective Date Patient Seen: 11/02/22 Interval history: Tolerating regular diet but with minimal appetite. No flatus. His drain was dislodged this morning and was completely removed but had completely serous contents before it was dislodged. Exam Vital Signs (past 8 hours): - 11/02/22 05:26 11/02/22 09:35 Temperature 96.7 F L 97.5 F L Pulse Rate 85 95 H Respiratory Rate 18 12 Blood Pressure 122/69 142/76 H Pulse Oximetry 97 99 Oxygen Flow Rate 0 Oxygen Delivery Method Room Air Oxygen Flow Rate 0 Narrative Exam Narrative: Abdomen appropriately tender Objective Labs 11/02/22 04:50 11/02/22 04:50 Labs: Laboratory Results - last 24 hr 11/02/22 11/02/22 04:50 04:50 WBC 6.1 RBC 2.44 L Hgb 7.2 L Hct 21.2 L MCV 86.8 MCH 29.6 MCHC 34.1 RDW 15.2 H Plt Count 375 Neut % (Auto) 57.7 D Lymph % (Auto) 25.2 [place] % (Auto) 15.8 H Eos % (Auto) 1.0 L Baso % (Auto) 0.3 Neut # (Auto) 3500 Lymph # (Auto) 1500 [place] # (Auto) 1000 H Eos # (Auto) 100 Baso # (Auto) 0 Sodium 127 L Potassium 3.3 L Chloride 100 Carbon Dioxide 23 BUN 6 L Creatinine 0.63 L Estimated GFR > 60 BUN/Creatinine Ratio 9.5 Glucose 95 Calcium 7.0 L Magnesium 1.6 PFSH Medical History (Updated 11/01/22 @ 14:26 by Ochoa Sosa MD) Compression fracture Constipation Femur fracture Hypertension Osteoporosis Surgical History (Updated 10/30/22 @ 15:32 by Ari Campbell MD) H/O Spinal surgery History of hip surgery S/P operative procedure on shoulder Social History household members: spouse and children Smoking Status: Current every day smoker alcohol intake: current Assessment & Plan Assessment and plan (1) Postoperative examination: Status: Acute Plan Waiting for more convincing flatus and tolerating more regular diet before discharge back to the correction facility came from
[2022-11-02] MEDS: MAGNESIUM CHLORIDE 64 MG TABLET 128 MG PO (10:05)
[2022-11-02] MEDS: HYDROCODONE/ACET 5/325 TABLET 2 TAB PO ×3 (12:38→21:08)
[2022-11-02] MEDS: POTASSIUM CHLORIDE 20 MEQ TAB 40 MEQ PO ×2 (12:38→16:48)
[2022-11-02 13:21] LABS: Immunoglobulin A, Serum 230 mg/dL (61-437); Immunoglobulin G,Serum 890 mg/dL (603-1613); Immunoglobulin M, Serum 93 mg/dL (20-172)
[2022-11-02] MEDS: TRAMADOL 50 MG TABLET PO (14:47)
--- NOTE | 2022-11-02 14:50 | CM.DPC ---
DCP Continued: SCHOOL LIBRARIAN reviewed EMR. Per nursing staff, patient is on a regular diet, no tube, and is doing well. Voiding no cath and had a BM yesterday. Nurse anticipates patient may be ready to d/c back to [facility] tomorrow. SCHOOL LIBRARIAN entered room and reintroduced self and role. Patient was resting in bed. Patient continues to report being open to [facility] upon d/c here. SCHOOL LIBRARIAN updated Elli at [facility] of potential d/c timeline. Elli said they can take patient whenever tomorrow. SCHOOL LIBRARIAN set up a tentative time for early afternoon d/c, pending medical stability. SCHOOL LIBRARIAN faxxed updated PN from hospitalist and surgeon and nursing note to [facility]. SCHOOL LIBRARIAN called Blanca () on her work number ([phone] ext [phone]). Blanca reports she is on board with the plan for patient to d/c to [facility] when medically stable. reports she's planning on stopping by tomorrow at 9am to visit with patient. Plan: return to [facility] when medically stable. CM team will continue to follow closely. GISELLA Macdonald
--- NOTE | 2022-11-02 17:31 | PM.PN.1 ---
Subjective Subjective Interval history: 67-year-old male postoperative day 2. From ex lap, lysis of adhesions, and colotomy for bowel obstruction. Patient reports that he does not have much of an appetite. He tells me he ate only bites of food today.He denies passing gas or having a bowel movement. He is asking for pain medications. His nurse reports that he ate half of his breakfast and his lunch both. She notes he had a bowel movement yesterday. She has been working with the patient today to transition to oral pain medications as they are preparations in place for him to potentially [facility] to [facility] tomorrow. Exam Vital Signs (past 8 hours): - 11/02/22 09:35 Temperature 97.5 F L Pulse Rate 95 H Respiratory Rate 12 Blood Pressure 142/76 H Pulse Oximetry 99 Oxygen Delivery Method Room Air Oxygen Flow Rate 0 Narrative Exam Narrative: GEN: middle-aged male,Alert and oriented x 3, NAD HEENT:NC, Face symmetric CHEST: Respiratory excursions symmetric, CTAB CV: RRR, no M/R/G ABD: Soft, NT/ND, BT present in all 4 quadrants, no organomegaly or masses EXTR: warm, well perfused, no C/C/E SKIN: warm and dry, no rash NEURO: Alert and oriented x 3, nonfocal Objective Labs 11/02/22 04:50 11/02/22 04:50 Labs: Laboratory Results - last 24 hr 10/31/22 11/02/22 11/02/22 04:50 04:50 04:50 WBC 6.1 RBC 2.44 L Hgb 7.2 L Hct 21.2 L MCV 86.8 MCH 29.6 MCHC 34.1 RDW 15.2 H Plt Count 375 Neut % (Auto) 57.7 D Lymph % (Auto) 25.2 [place] % (Auto) 15.8 H Eos % (Auto) 1.0 L Baso % (Auto) 0.3 Neut # (Auto) 3500 Lymph # (Auto) 1500 [place] # (Auto) 1000 H Eos # (Auto) 100 Baso # (Auto) 0 Sodium 127 L Potassium 3.3 L Chloride 100 Carbon Dioxide 23 BUN 6 L Creatinine 0.63 L Estimated GFR > 60 BUN/Creatinine Ratio 9.5 Glucose 95 Calcium 7.0 L Magnesium 1.6 Serum IgA 230 Serum IgG 890 Serum IgM 93 PIPPA Interpretation Comment REPLACED BY [facility] Medical History (Updated 11/01/22 @ 14:26 by Ochoa Sosa MD) Compression fracture Constipation Femur fracture Hypertension Osteoporosis Surgical History (Updated 10/30/22 @ 15:32 by Ari Campbell MD) H/O Spinal surgery History of hip surgery S/P operative procedure on shoulder Social History household members: spouse and children Smoking Status: Current every day smoker alcohol intake: current Assessment & Plan Assessment & Plan narrative: 1. Small-bowel obstruction, postoperative day 2. From lysis of adhesion/ex lap/colotomy patient is doing well overall. Diet has been advanced. Will add tramadol orally as needed and DC hydromorphone. Continue management per General surgery. 2. Severe osteoporosis with 6 compression fractures noted on recent lumbar spine MRI immunofixation was negative, no evidence for multiple myeloma. Patient would benefit from outpatient workup. 3. Hypokalemia potassium was down to 3.3 today. He received 2 doses of potassium chloride. Repeat labs in the morning. 4. Hyponatremia Slowly improving. Sodium is up to 127 today. 5. Anemia Hemoglobin appears to be down. Will repeat an H/ H this evening. 6. Hypertension Blood pressure is normotensive. Will resume his usual amlodipine dosing. code status full prophylaxis Lovenox disposition [facility] to [facility] tomorrow
[2022-11-02 18:04] LABS: Hematocrit 25.3 % (41-53); Hemoglobin 8.5 g/dL (13.5-17.5)
[2022-11-02 20:55] VITALS: BP 142/85; PULSE 86; RESP 18; TEMP 36.5; O2SAT 97
[2022-11-02] MEDS: PANTOPRAZOLE DR 40 MG TABLET PO (21:08)
[2022-11-02] MEDS: MIRTAZAPINE 15 MG TABLET PO (21:08)
[2022-11-03] MEDS: HYDROCODONE/ACET 5/325 TABLET 2 TAB PO ×5 (04:55→21:32)
[2022-11-03 05:18] LABS: Add Manual Diff / Slide Review NO; Basophils Absolute Auto 100 /uL (0-100); Basophils Percent Auto 1.2 % (0-2); Eosinophils Absolute Auto 100 /uL (0-450); Eosinophils Percent Auto 1.4 % (2-4); Hematocrit 29.7 % (41-53); Hemoglobin 9.8 g/dL (13.5-17.5); Lymphocytes Absolute Auto 2200 /uL (1100-4500); Mean Corpuscular HGB Conc 32.9 % (30-36); Mean Corpuscular Hemoglobin 28.6 PG (26-34); Mean Corpuscular Volume 86.9 fL (80-100); Monocytes Absolute Auto 1100 /uL (0-900); Monocytes Percent Auto 10.6 % (3-14); Neutrophils Absolute Auto 6800 /uL (1500-7000); Neutrophils Percent Auto 65.8 % (50-75); Platelet Count 505 X10^3/uL (150-400); Red Blood Cell Count 3.41 X10^6/uL (4.5-5.9); Red Cell Distribution Width 15.4 % (11.6-14.8); White Blood Cell Count 10.4 X10^3/uL (4.5-11.0)
[2022-11-03 05:37] LABS: BUN Creatinine Ratio 10.1 (6-22); Blood Urea Nitrogen 7 mg/dL (9-20); Calcium 7.6 mg/dL (8.4-10.2); Carbon Dioxide 26 mmol/L (22-32); Chloride 98 mmol/L (98-107); Estimated Glomerular Filt Rate > 60 mL/min (>60); Glucose 79 mg/dL (80-110); HEMOLYSIS < 15 (0-50); Magnesium 1.7 mg/dL (1.6-2.3); Potassium 4.1 mmol/L (3.4-5.1); Sodium 126 mmol/L (137-145)
[2022-11-03 07:00] VITALS: BP 137/77; PULSE 85; RESP 16; O2SAT 99
[2022-11-03] MEDS: GABAPENTIN 300 MG CAPSULE PO (08:24)
[2022-11-03] MEDS: SERTRALINE 50 MG TABLET 25 MG PO (08:24)
[2022-11-03] MEDS: PANTOPRAZOLE DR 40 MG TABLET PO ×2 (08:24→21:32)
[2022-11-03] MEDS: AMLODIPINE 5 MG TABLET PO (08:25)
[2022-11-03] MEDS: ENOXAPARIN 40 MG/0.4 ML SYRINGE SUBCUT (08:25)
[2022-11-03] MEDS: MAGNESIUM CHLORIDE 64 MG TABLET 128 MG PO (09:50)
--- NOTE | 2022-11-03 10:23 | CM.DPC ---
DCP remains for return to [facility] when medically cleared, not ready for DC today secondary to Na+126 and continued diarrhea. Call to Lynette at [phone] with update. CM team will call SV again tomorrow as patient progresses towards DC goal.
[2022-11-03 10:56] LABS: Sodium Urine Random 186 mmol/L (30-90)
--- NOTE | 2022-11-03 11:15 | P.PN_ITS ---
Subjective Subjective Date Patient Seen: 11/03/22 Time Patient Seen: 11:15 Interval history: No major events. Tolerant of a regular diet has return of bowel function. Exam Vital Signs (past 8 hours): - 11/03/22 07:00 Pulse Rate 85 Respiratory Rate 16 Blood Pressure 137/77 Pulse Oximetry 99 Oxygen Flow Rate 0 Oxygen Delivery Method Room Air Oxygen Flow Rate 0 Narrative Exam Narrative: General elderly man alert comfortable Abdomen drain site no active drainage no erythema. Midline incision closed with calvin appropriately tender to palpation. Objective Labs 11/03/22 04:50 11/03/22 04:50 Labs: Laboratory Results - last 24 hr 10/31/22 11/02/22 11/03/22 04:50 18:00 04:50 WBC 10.4 D RBC 3.41 L Hgb 8.5 L 9.8 L Hct 25.3 L 29.7 L MCV 86.9 MCH 28.6 MCHC 32.9 RDW 15.4 H Plt Count 505 H Neut % (Auto) 65.8 Lymph % (Auto) 21.0 L [place] % (Auto) 10.6 Eos % (Auto) 1.4 L Baso % (Auto) 1.2 Neut # (Auto) 6800 Lymph # (Auto) 2200 [place] # (Auto) 1100 H Eos # (Auto) 100 Baso # (Auto) 100 Sodium Potassium Chloride Carbon Dioxide BUN Creatinine Estimated GFR BUN/Creatinine Ratio Glucose Calcium Magnesium Ur Random Sodium Serum IgA 230 Serum IgG 890 Serum IgM 93 PIPPA Interpretation Comment 11/03/22 11/03/22 04:50 10:15 WBC RBC Hgb Hct MCV MCH MCHC RDW Plt Count Neut % (Auto) Lymph % (Auto) [place] % (Auto) Eos % (Auto) Baso % (Auto) Neut # (Auto) Lymph # (Auto) [place] # (Auto) Eos # (Auto) Baso # (Auto) Sodium 126 L Potassium 4.1 Chloride 98 Carbon Dioxide 26 BUN 7 L Creatinine 0.69 Estimated GFR > 60 BUN/Creatinine Ratio 10.1 Glucose 79 L Calcium 7.6 L Magnesium 1.7 Ur Random Sodium 186 H Serum IgA Serum IgG Serum IgM PIPPA Interpretation [facility] Medical History (Updated 11/03/22 @ 00:01 by ) Compression fracture Constipation Femur fracture Hypertension Osteoporosis Surgical History (Updated 10/30/22 @ 15:32 by H Bautista Campbell MD) H/O Spinal surgery History of hip surgery S/P operative procedure on shoulder Social History household members: spouse and children Smoking Status: Current every day smoker alcohol intake: current Assessment & Plan Post-op Postoperative Procedures: Procedures Operation Date: 10/31/22 13:30 Actual Procedure Side Surgeon p Exploratory Laparotomy, lysis of adhesions, colotomy Ochoa Sosa MD Postoperative status narrative: 67-year-old man postoperative day 3 status post exploratory laparotomy with lysis of adhesions for a small-bowel obstruction. He is recovering from the operation appropriately. He has return of bowel function is tolerant of a diet. He remains hospitalized for management of hyponatremia prior to returning to his assisted facility. No further surgical needs anticipated. We will sign off for now please call with questions. He will need follow up in the surgical clinic with Dr. Sosa in 2 weeks.
--- NOTE | 2022-11-03 16:00 | PM.PN.1 ---
Subjective Subjective Interval history: 67-year-old male s/p ex lap, lysis of adhesions, and colotomy for bowel obstruction. Patient reports that he does not have much of an appetite. He tells me he ate only bites of food today. He has had diarrhea today and has b/l lower quadrant pain. His sodium is 126 again today. Repeat urine sodium was elevated, likely SIADH. Placed on fluid restriction. Exam Vital Signs (past 8 hours): Oxygen Delivery Method Room Air Oxygen Flow Rate 0 Narrative Exam Narrative: General:? Patient is well developed and well nourished, appears uncomfortable, NG tube in place HEENT:? Normocephalic, atraumatic, extraocular muscles intact, oral pharynx is clear and mucous membranes are dry. Neck: supple and symmetric, trachea is midline, no cervical adenopathy. Negative for JVD Chest:? Normal AP diameter and contour without kyphoscoliosis, no tachypnea, equal chest rise bilaterally. Lungs:? CTA b/l no wheezing rhonchi or rales. Cardio:?RRR no m/r/g. Abdomen: soft, tender around incisions, non-distended. Musculoskeletal:? Muscle strength and tone are equal within normal limits, no deformity. Extremities: No edema or joint effusions. No cyanosis or clubbing. Skin:? Pale,? Warm to touch,dry and intact without rashes, ulcerations or petechiae.? Neuro:? Alert and orientated x3,? sensation to touch intact in all extremities, no gross deficits noted of cranial nerves. Psych:? Patient has a well-kept appearance, appropriate affect, mental status attitude thought context and judgment are appropriate for age. Objective Labs 11/03/22 04:50 11/03/22 04:50 Labs: Laboratory Results - last 24 hr 11/02/22 11/03/22 11/03/22 18:00 04:50 04:50 WBC 10.4 D RBC 3.41 L Hgb 8.5 L 9.8 L Hct 25.3 L 29.7 L MCV 86.9 MCH 28.6 MCHC 32.9 RDW 15.4 H Plt Count 505 H Neut % (Auto) 65.8 Lymph % (Auto) 21.0 L [place] % (Auto) 10.6 Eos % (Auto) 1.4 L Baso % (Auto) 1.2 Neut # (Auto) 6800 Lymph # (Auto) 2200 [place] # (Auto) 1100 H Eos # (Auto) 100 Baso # (Auto) 100 Sodium 126 L Potassium 4.1 Chloride 98 Carbon Dioxide 26 BUN 7 L Creatinine 0.69 Estimated GFR > 60 BUN/Creatinine Ratio 10.1 Glucose 79 L Calcium 7.6 L Magnesium 1.7 Ur Random Sodium 11/03/22 10:15 WBC RBC Hgb Hct MCV MCH MCHC RDW Plt Count Neut % (Auto) Lymph % (Auto) [place] % (Auto) Eos % (Auto) Baso % (Auto) Neut # (Auto) Lymph # (Auto) [place] # (Auto) Eos # (Auto) Baso # (Auto) Sodium Potassium Chloride Carbon Dioxide BUN Creatinine Estimated GFR BUN/Creatinine Ratio Glucose Calcium Magnesium Ur Random Sodium 186 H [facility] Medical History (Updated 11/03/22 @ 00:01 by ) Compression fracture Constipation Femur fracture Hypertension Osteoporosis Surgical History (Updated 10/30/22 @ 15:32 by Ari Campbell MD) H/O Spinal surgery History of hip surgery S/P operative procedure on shoulder Social History household members: spouse and children Smoking Status: Current every day smoker alcohol intake: current Assessment & Plan Assessment & Plan narrative: 1. Small-bowel obstruction, postoperative day 2. From lysis of adhesion/ex lap/colotomy patient is doing well overall. Diet has been advanced. Will add tramadol orally as needed and DC hydromorphone. Continue management per General surgery. -some diarrhea today reported, continue to monitor, if continues frequently check C. diff. 2. Severe osteoporosis with 6 compression fractures noted on recent lumbar spine MRI immunofixation was negative, no evidence for multiple myeloma. Patient would benefit from outpatient workup. 3. Hypokalemia improved today to 4.1 4. Hyponatremia Slowly improving initially with fluids, now 126 again today. Did urine studies with urine sodium >100. 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 - fluid restriction - possible salt tabs depending on trend tomorrow. 5. Acute blood loss anemia. Hemoglobin appeared to be down but then improved. Likely fluid shifts after surgery with possible acute blood loss anemia due to surgical interventions. 6. Hypertension Blood pressure is normotensive. on home amlodipine. Holding lisinopril HCTZ for now. Discontinue HCTZ given hyponatremia. code status full prophylaxis Lovenox disposition SNF, pending improvement in hyponatremia.
[2022-11-03 20:00] VITALS: BP 121/69; PULSE 83; RESP 17; TEMP 36.4; O2SAT 96
[2022-11-03] MEDS: MIRTAZAPINE 15 MG TABLET PO (21:32)
[2022-11-04] MEDS: HYDROCODONE/ACET 5/325 TABLET 2 TAB PO ×6 (01:30→22:42)
[2022-11-04 06:02] LABS: Add Manual Diff / Slide Review NO; Basophils Absolute Auto 100 /uL (0-100); Basophils Percent Auto 1.3 % (0-2); Eosinophils Absolute Auto 200 /uL (0-450); Eosinophils Percent Auto 3.1 % (2-4); Hematocrit 29.1 % (41-53); Hemoglobin 9.7 g/dL (13.5-17.5); Lymphocytes Absolute Auto 2100 /uL (1100-4500); Lymphocytes Percent Auto 27.6 % (25-40); Mean Corpuscular HGB Conc 33.3 % (30-36); Mean Corpuscular Hemoglobin 28.8 PG (26-34); Mean Corpuscular Volume 86.5 fL (80-100); Monocytes Absolute Auto 1100 /uL (0-900); Monocytes Percent Auto 13.9 % (3-14); Neutrophils Absolute Auto 4200 /uL (1500-7000); Neutrophils Percent Auto 54.1 % (50-75); Platelet Count 514 X10^3/uL (150-400); Red Blood Cell Count 3.36 X10^6/uL (4.5-5.9); Red Cell Distribution Width 15.4 % (11.6-14.8); White Blood Cell Count 7.7 X10^3/uL (4.5-11.0)
[2022-11-04 06:13] LABS: BUN Creatinine Ratio 9.1 (6-22); Blood Urea Nitrogen 7 mg/dL (9-20); Calcium 7.5 mg/dL (8.4-10.2); Carbon Dioxide 26 mmol/L (22-32); Chloride 97 mmol/L (98-107); Estimated Glomerular Filt Rate > 60 mL/min (>60); Glucose 80 mg/dL (80-110); HEMOLYSIS < 15 (0-50); Magnesium 1.8 mg/dL (1.6-2.3); Potassium 4.6 mmol/L (3.4-5.1); Sodium 126 mmol/L (137-145)
[2022-11-04 08:51] VITALS: BP 131/77; PULSE 93; RESP 20; TEMP 36.2; O2SAT 98
[2022-11-04] MEDS: SERTRALINE 50 MG TABLET 25 MG PO (09:57)
[2022-11-04] MEDS: PANTOPRAZOLE DR 40 MG TABLET PO ×2 (09:57→20:26)
[2022-11-04] MEDS: GABAPENTIN 300 MG CAPSULE PO (09:57)
[2022-11-04] MEDS: SODIUM CHLORIDE 1,000 MG TABLET 1000 MG PO ×3 (09:57→20:26)
[2022-11-04] MEDS: AMLODIPINE 5 MG TABLET PO (09:57)
[2022-11-04] MEDS: ENOXAPARIN 40 MG/0.4 ML SYRINGE SUBCUT (09:57)
--- NOTE | 2022-11-04 11:29 | P.PN_ITS ---
Subjective Subjective Interval history: 67-year-old male s/p ex lap, lysis of adhesions, and colotomy for bowel obstruction. Patient reports he feels improved today. He has had diarrhea today and has b/l lower quadrant pain, but stools are documented as soft. His sodium is 126 again today. Repeat urine sodium was elevated, likely SIADH. Placed on fluid restriction with no change in sodium Added salt tablets today. Exam Vital Signs (past 8 hours): - 11/04/22 08:51 Temperature 97.2 F L Pulse Rate 93 H Respiratory Rate 20 Blood Pressure 131/77 Pulse Oximetry 98 Oxygen Flow Rate 0 Oxygen Delivery Method Room Air Oxygen Flow Rate 0 Narrative Exam Narrative: General:? Patient is well developed and well nourished, appears uncomfortable, NG tube in place HEENT:? Normocephalic, atraumatic, extraocular muscles intact, oral pharynx is clear and mucous membranes are dry. Neck: supple and symmetric, trachea is midline, no cervical adenopathy. Negative for JVD Chest:? Normal AP diameter and contour without kyphoscoliosis, no tachypnea, equal chest rise bilaterally. Lungs:? CTA b/l no wheezing rhonchi or rales. Cardio:?RRR no m/r/g. Abdomen: soft, tender around incisions, non-distended. Musculoskeletal:? Muscle strength and tone are equal within normal limits, no deformity. Extremities: No edema or joint effusions. No cyanosis or clubbing. Skin:? Pale,? Warm to touch,dry and intact without rashes, ulcerations or pe techiae.? Neuro:? Alert and orientated x3,? sensation to touch intact in all extremities, no gross deficits noted of cranial nerves. Psych:? Patient has a well-kept appearance, appropriate affect, mental status attitude thought context and judgment are appropriate for age. Objective Labs 11/04/22 05:55 11/04/22 05:55 Labs: Laboratory Results - last 24 hr 11/04/22 11/04/22 05:55 05:55 WBC 7.7 RBC 3.36 L Hgb 9.7 L Hct 29.1 L MCV 86.5 MCH 28.8 MCHC 33.3 RDW 15.4 H Plt Count 514 H Neut % (Auto) 54.1 Lymph % (Auto) 27.6 [place] % (Auto) 13.9 Eos % (Auto) 3.1 Baso % (Auto) 1.3 Neut # (Auto) 4200 Lymph # (Auto) 2100 [place] # (Auto) 1100 H Eos # (Auto) 200 Baso # (Auto) 100 Sodium 126 L Potassium 4.6 Chloride 97 L Carbon Dioxide 26 BUN 7 L Creatinine 0.77 Estimated GFR > 60 BUN/Creatinine Ratio 9.1 Glucose 80 Calcium 7.5 L Magnesium 1.8 PFSH Medical History (Updated 11/03/22 @ 00:01 by ) Compression fracture Constipation Femur fracture Hypertension Osteoporosis Surgical History (Updated 10/30/22 @ 15:32 by Ari Campbell MD) H/O Spinal surgery History of hip surgery S/P operative procedure on shoulder Social History household members: spouse and children Smoking Status: Current every day smoker alcohol intake: current Assessment & Plan Assessment & Plan narrative: 1. Small-bowel obstruction, s/p lysis of adhesion/ex lap/colotomy patient is doing well overall. Diet has been advanced. Added tramadol orally as needed and DC hydromorphone. Continue management per General surgery. -some diarrhea today reported, continue to monitor, if continues frequently check C. diff. 2. Severe osteoporosis with 6 compression fractures noted on recent lumbar spine MRI immunofixation was negative, no evidence for multiple myeloma. Patient would benefit from outpatient workup. 3. Hypokalemia improved today to 4.6 4. Hyponatremia Slowly improving initially with fluids, now 126 again today. Did urine studies with urine sodium >100. 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 - fluid restriction - added salt tabs 11/04. 5. Acute blood loss anemia. Hemoglobin appeared to be down but then improved. Likely fluid shifts after hernandez rgery with possible acute blood loss anemia due to surgical interventions. 6. Hypertension Blood pressure is normotensive. on home amlodipine. Holding lisinopril HCTZ for now. Discontinue HCTZ given hyponatremia. code status full prophylaxis Lovenox disposition SNF, pending improvement in hyponatremia.
--- NOTE | 2022-11-04 12:41 | CM.DPNOTE ---
DCP remains return to [facility]. Call to Elli with update. They will set up ride tenatively for 1300 tomorrow. CM team following for progression to DC goal.
[2022-11-04 13:01] LABS: Osmolality Urine 523 mOsmol/kg (.)
--- NOTE | 2022-11-04 13:29 | PC.NURSE ---
Patient has been up to the bathroom x3 and is having semi soft stools. He is a one person sba to the toilet with the walker. He is hunched over when he ambulates. Given 2 vicodin for discomfort to abdomen at a 7/10. He is resting comfortably now.
[2022-11-04 20:12] VITALS: BP 116/71; PULSE 82; RESP 18; TEMP 37.2; O2SAT 99
[2022-11-04] MEDS: MIRTAZAPINE 15 MG TABLET PO (20:26)
[2022-11-04] MEDS: TRAMADOL 50 MG TABLET PO (20:26)
[2022-11-04] MEDS: ZOLPIDEM 5 MG TABLET PO (20:26)
[2022-11-05] MEDS: HYDROCODONE/ACET 5/325 TABLET 2 TAB PO ×5 (03:00→20:46)
[2022-11-05 07:40] VITALS: BP 129/82; PULSE 97; RESP 16; TEMP 35.7; O2SAT 97
[2022-11-05] MEDS: SERTRALINE 50 MG TABLET 25 MG PO (08:59)
[2022-11-05] MEDS: SODIUM CHLORIDE 1,000 MG TABLET 1000 MG PO ×3 (08:59→20:18)
[2022-11-05] MEDS: GABAPENTIN 300 MG CAPSULE PO (08:59)
[2022-11-05] MEDS: AMLODIPINE 5 MG TABLET PO (09:00)
[2022-11-05] MEDS: ENOXAPARIN 40 MG/0.4 ML SYRINGE SUBCUT (09:01)
[2022-11-05] MEDS: PANTOPRAZOLE DR 40 MG TABLET PO ×2 (09:08→20:18)
--- NOTE | 2022-11-05 10:29 | CM.DPNOTE ---
DCP remains return to [facility] for continued rehab. Call to Michael at [phone], they have a bed available for today with a potential miner pick time of 1300. Barrier remains ongoing hyponatremia, awaiting lab value for today for further medical clearance.
[2022-11-05] MEDS: LOPERAMIDE 2 MG CAPSULE PO (14:01)
[2022-11-05 14:52] LABS: Add Manual Diff / Slide Review NO; Basophils Absolute Auto 100 /uL (0-100); Eosinophils Absolute Auto 200 /uL (0-450); Eosinophils Percent Auto 2.3 % (2-4); Hematocrit 25.5 % (41-53); Hemoglobin 8.5 g/dL (13.5-17.5); Lymphocytes Absolute Auto 2000 /uL (1100-4500); Lymphocytes Percent Auto 27.7 % (25-40); Mean Corpuscular HGB Conc 33.3 % (30-36); Mean Corpuscular Hemoglobin 28.7 PG (26-34); Mean Corpuscular Volume 86.3 fL (80-100); Monocytes Absolute Auto 1000 /uL (0-900); Monocytes Percent Auto 14.2 % (3-14); Neutrophils Absolute Auto 3900 /uL (1500-7000); Neutrophils Percent Auto 54.8 % (50-75); Platelet Count 498 X10^3/uL (150-400); Red Blood Cell Count 2.96 X10^6/uL (4.5-5.9); Red Cell Distribution Width 15.5 % (11.6-14.8); White Blood Cell Count 7.2 X10^3/uL (4.5-11.0)
[2022-11-05 15:11] LABS: BUN Creatinine Ratio 8.1 (6-22); Blood Urea Nitrogen 8 mg/dL (9-20); Calcium 7.2 mg/dL (8.4-10.2); Carbon Dioxide 24 mmol/L (22-32); Chloride 100 mmol/L (98-107); Estimated Glomerular Filt Rate > 60 mL/min (>60); Glucose 105 mg/dL (80-110); HEMOLYSIS < 15 (0-50); Magnesium 1.9 mg/dL (1.6-2.3); Potassium 4.1 mmol/L (3.4-5.1); Sodium 126 mmol/L (137-145)
--- NOTE | 2022-11-05 15:25 | P.PN_ITS ---
Subjective Subjective Interval history: Na remains 126 today. Patient complaining of ongoing diarrhea. Requesting imodium. Would like to shower also. Exam Vital Signs (past 8 hours): - 11/05/22 07:40 Temperature 96.3 F L Pulse Rate 97 H Respiratory Rate 16 Blood Pressure 129/82 Pulse Oximetry 97 Oxygen Delivery Method Room Air Oxygen Flow Rate 0 Narrative Exam Narrative: General:? Patient is well developed and well nourished HEENT:? Normocephalic, atraumatic, extraocular muscles intact, oral pharynx is clear and mucous membranes are dry. Neck: supple and symmetric, trachea is midline, no cervical adenopathy. Negative for JVD Chest:? Normal AP diameter and contour without kyphoscoliosis, no tachypnea, equal chest rise bilaterally. Lungs:? CTA b/l no wheezing rhonchi or rales. Cardio:?RRR no m/r/g. Abdomen: soft, tender around incisions, non-distended. Musculoskeletal:? Muscle strength and tone are equal within normal limits, no deformity. Extremities: No edema or joint effusions. No cyanosis or clubbing. Skin:? Pale,? Warm to touch,dry and intact without rashes, ulcerations or petechiae.? Neuro:? Alert and orientated x3,? sensation to touch intact in all extremities, no gross deficits noted of cranial nerves. Psych:? Patient has a well-kept appearance, appropriate affect, mental status attitude thought context and judgment are appropriate for age. Objective Labs 11/05/22 14:45 11/05/22 14:45 Labs: Laboratory Results - last 24 hr 11/05/22 11/05/22 14:45 14:45 WBC 7.2 RBC 2.96 L Hgb 8.5 L Hct 25.5 L MCV 86.3 MCH 28.7 MCHC 33.3 RDW 15.5 H Plt Count 498 H Neut % (Auto) 54.8 Lymph % (Auto) 27.7 [place] % (Auto) 14.2 H Eos % (Auto) 2.3 Baso % (Auto) 1.0 Neut # (Auto) 3900 Lymph # (Auto) 2000 [place] # (Auto) 1000 H Eos # (Auto) 200 Baso # (Auto) 100 Sodium 126 L Potassium 4.1 Chloride 100 Carbon Dioxide 24 BUN 8 L Creatinine 0.99 Estimated GFR > 60 BUN/Creatinine Ratio 8.1 Glucose 105 Calcium 7.2 L Magnesium 1.9 PFSH Medical History (Updated 11/03/22 @ 00:01 by ) Compression fracture Constipation Femur fracture Hypertension Osteoporosis Surgical History (Updated 10/30/22 @ 15:32 by Ari Campbell MD) H/O Spinal surgery History of hip surgery S/P operative procedure on shoulder Social History household members: spouse and children Smoking Status: Current every day smoker alcohol intake: current Assessment & Plan Assessment & Plan narrative: 1. Small-bowel obstruction, s/p lysis of adhesion/ex lap/colotomy -patient is doing well overall. Diet has been advanced. Added tramadol orally as needed and DC hydromorphone. Continue management per General surgery. -some diarrhea reported, continue to monitor -add imodium PRN 2. Severe osteoporosis with 6 compression fractures noted on recent lumbar spine MRI immunofixation was negative, no evidence for multiple myeloma. Patient would benefit from outpatient workup. 3. Hypokalemia, resolved improved to 4.6 4. Hyponatremia Slowly improving initially with fluids, now 126 again today. Did urine studies with urine sodium >100. 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 - fluid restriction - added salt tabs 11/04. - Na still 126, continue fluid restriction and salt tabs 5. Acute blood loss anemia. Hemoglobin appeared to be down but then improved. Likely fluid shifts after s urgery with possible acute blood loss anemia due to surgical interventions. 6. Hypertension Blood pressure is normotensive. on home amlodipine. Holding lisinopril HCTZ for now. Discontinue HCTZ given hyponatremia. code status full prophylaxis Lovenox disposition SNF, pending improvement in hyponatremia.
[2022-11-05 16:45] VITALS: BP 113/67; PULSE 83; RESP 16; TEMP 36.1; O2SAT 98
--- NOTE | 2022-11-05 18:55 | PC.NURSE ---
a/o, voices needs. SBA for mobility w/ fww. midline incision is CDI. reports loose stools. immodium given x 1. vicodin given for c/o 10/03 ABD pain. Na+ continues to be low at 126. encouraged increased salt intake at meals. anticipate d/c to [facility] monday.
[2022-11-05 19:45] VITALS: BP 92/62; PULSE 84; RESP 18; TEMP 37.1; O2SAT 99
[2022-11-05] MEDS: MIRTAZAPINE 15 MG TABLET PO (20:18)
[2022-11-05] MEDS: ZOLPIDEM 5 MG TABLET PO (20:47)
[2022-11-06] MEDS: HYDROCODONE/ACET 5/325 TABLET 2 TAB PO ×4 (00:26→12:32)
[2022-11-06 05:38] LABS: Add Manual Diff / Slide Review NO; Basophils Absolute Auto 100 /uL (0-100); Basophils Percent Auto 1.4 % (0-2); Eosinophils Absolute Auto 200 /uL (0-450); Hematocrit 27.2 % (41-53); Lymphocytes Absolute Auto 1600 /uL (1100-4500); Mean Corpuscular HGB Conc 33.3 % (30-36); Mean Corpuscular Hemoglobin 28.5 PG (26-34); Mean Corpuscular Volume 85.8 fL (80-100); Monocytes Absolute Auto 500 /uL (0-900); Neutrophils Absolute Auto 3300 /uL (1500-7000); Neutrophils Percent Auto 58.6 % (50-75); Platelet Count 483 X10^3/uL (150-400); Red Blood Cell Count 3.17 X10^6/uL (4.5-5.9); Red Cell Distribution Width 15.8 % (11.6-14.8); White Blood Cell Count 5.5 X10^3/uL (4.5-11.0)
[2022-11-06 05:50] LABS: BUN Creatinine Ratio 10.7 (6-22); Blood Urea Nitrogen 8 mg/dL (9-20); Carbon Dioxide 26 mmol/L (22-32); Chloride 98 mmol/L (98-107); Estimated Glomerular Filt Rate > 60 mL/min (>60); Glucose 85 mg/dL (80-110); HEMOLYSIS < 15 (0-50); Magnesium 1.9 mg/dL (1.6-2.3); Potassium 3.8 mmol/L (3.4-5.1); Sodium 127 mmol/L (137-145)
[2022-11-06 07:00] VITALS: BP 124/82; PULSE 91; RESP 17; TEMP 36.6; O2SAT 96
[2022-11-06] MEDS: SERTRALINE 50 MG TABLET 25 MG PO (08:52)
[2022-11-06] MEDS: SODIUM CHLORIDE 1,000 MG TABLET 1000 MG PO ×3 (08:52→20:23)
[2022-11-06] MEDS: PANTOPRAZOLE DR 40 MG TABLET PO ×2 (08:52→20:23)
[2022-11-06] MEDS: AMLODIPINE 5 MG TABLET PO (08:52)
[2022-11-06] MEDS: GABAPENTIN 300 MG CAPSULE PO (08:52)
[2022-11-06] MEDS: LOPERAMIDE 2 MG CAPSULE PO (08:52)
[2022-11-06] MEDS: ENOXAPARIN 40 MG/0.4 ML SYRINGE SUBCUT (08:53)
[2022-11-06] MEDS: OXYCODONE IR 10 MG TABLET PO ×2 (16:55→21:20)
--- NOTE | 2022-11-06 18:44 | PM.PN.1 ---
Subjective Subjective Interval history: Patient's diarrhea improving. Sodium uptrending now to 127. He has no complaints. at bedside and all questions were answered. Exam Vital Signs (past 8 hours): Oxygen Delivery Method Room Air Oxygen Flow Rate 0 Narrative Exam Narrative: General:? Patient is well developed and well nourished HEENT:? Normocephalic, atraumatic, extraocular muscles intact, oral pharynx is clear and mucous membranes are dry. Neck: supple and symmetric, trachea is midline, no cervical adenopathy. Negative for JVD Chest:? Normal AP diameter and contour without kyphoscoliosis, no tachypnea, equal chest rise bilaterally. Lungs:? CTA b/l no wheezing rhonchi or rales. Cardio:?RRR no m/r/g. Abdomen: soft, tender around incisions, non-distended. Musculoskeletal:? Muscle strength and tone are equal within normal limits, no deformity. Extremities: No edema or joint effusions. No cyanosis or clubbing. Skin:? Pale,? Warm to touch,dry and intact without rashes, ulcerations or petechiae.? Neuro:? Alert and orientated x3,? sensation to touch intact in all extremities, no gross deficits noted of cranial nerves. Psych:? Patient has a well-kept appearance, appropriate affect, mental status attitude thought context and judgment are appropriate for age. Objective Labs 11/06/22 05:18 11/06/22 05:18 Labs: Laboratory Results - last 24 hr 11/06/22 11/06/22 05:18 05:18 WBC 5.5 RBC 3.17 L Hgb 9.0 L Hct 27.2 L MCV 85.8 MCH 28.5 MCHC 33.3 RDW 15.8 H Plt Count 483 H Neut % (Auto) 58.6 Lymph % (Auto) 28.0 [place] % (Auto) 9.0 Eos % (Auto) 3.0 Baso % (Auto) 1.4 Neut # (Auto) 3300 Lymph # (Auto) 1600 [place] # (Auto) 500 Eos # (Auto) 200 Baso # (Auto) 100 Sodium 127 L Potassium 3.8 Chloride 98 Carbon Dioxide 26 BUN 8 L Creatinine 0.75 Estimated GFR > 60 BUN/Creatinine Ratio 10.7 Glucose 85 Calcium 7.0 L Magnesium 1.9 [facility] Medical History (Updated 11/03/22 @ 00:01 by ) Compression fracture Constipation Femur fracture Hypertension Osteoporosis Surgical History (Updated 10/30/22 @ 15:32 by Ari Campbell MD) H/O Spinal surgery History of hip surgery S/P operative procedure on shoulder Social History household members: spouse and children Smoking Status: Current every day smoker alcohol intake: current Assessment & Plan Assessment & Plan narrative: 1. Small-bowel obstruction, s/p lysis of adhesion/ex lap/colotomy -patient is doing well overall. Diet has been advanced. Added tramadol orally as needed and DC hydromorphone. Continue management per General surgery. -some diarrhea reported, continue to monitor -add imodium PRN 2. Severe osteoporosis with 6 compression fractures noted on recent lumbar spine MRI immunofixation was negative, no evidence for multiple myeloma. Patient would benefit from outpatient workup. 3. Hypokalemia, resolved improved to 4.6 4. Hyponatremia Slowly improving initially with fluids, now 126 x3 days. Did urine studies with urine sodium >100. 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 - fluid restriction - added salt tabs 11/04. - sodium now up to 127 - continue fluid restriction and salt tabs at SNF 5. Acute blood loss anemia. Hemoglobin appeared to be down but then improved. Likely fluid shifts after surgery with possible acute blood loss anemia due to surgical interventions. 6. Hypertension Blood pressure is normotensive. on home amlodipine. Holding lisinopril HCTZ for now. Discontinue HCTZ given hyponatremia. code status full prophylaxis Lovenox disposition SNF on 11/07.
[2022-11-06 19:00] VITALS: BP 103/65; PULSE 89; RESP 19; TEMP 36.4; O2SAT 97
[2022-11-06] MEDS: MIRTAZAPINE 15 MG TABLET PO (20:23)
[2022-11-06] MEDS: ZOLPIDEM 5 MG TABLET PO (21:20)
--- NOTE | 2022-11-06 21:52 | PC.NURSE ---
Addendum entered by Jennifer Baltazar R.N. 11/07/22 06:09: Upset with staff regarding fluid restriction. He has already had his 200cc since 1900 last evening and is wanting a cup of coffee. States the staff has been inconsistent with his care. Reports he has been able to have a cup of coffee the past 3 mornings. Also states that some of the staff has told him he is able to get up by himself and other staff tell him he has to call for assistance. Additionally states he is suppose to have his pain meds q4h and staff has allowed him to sleep up to 7h without waking him for the pain meds. Explained that pain meds are not scheduled that they are only available q4h but he states that previously they had been ordered scheduled and still not given. Sat with him and showed him MD order for fluid restriction and specifics of the amount. He is using profanity in degrading staff who have been caring for him. Made agreement with him that he can have 125cc of coffee at this time and will have day staff deduct that amount from his allotment on their shift. He is accepting of that but still requesting to talk with night supervisor; Kathryn RN coordinator informed and in to speak with patient. Even after coffee continues to be derogatory about staff regarding inconsistencies and is sarcastic when speaking to this RN. Original Note: Patient is alert and able to state name, birthdate and year. Became upset with orientation questions and stated he didn't have any problems with his cognition. Breath sounds diminished at bases but CTA with RA sat of 97%. HRR. Denies nausea. BT present and abdomen is soft but did complain of 8/10 abdominal pain and was medicated with oxycodone. Aquacel dressing to abdomen is intact with shadow drainage. Day RN reported earlier loose stools but none as yet this shift. Denies dysuria with urination. Is able to turn himself in bed and out of bed with walker and SBA. Does have chronic limited ROM in left UE related to history of fracture. 1+ bilateral LE edema noted. Declines use of SCD's so reminded to ankle wave. Medicated with Ambien for sleep per his request. Fall risk score is high and bed alarm is activated.
[2022-11-07] MEDS: OXYCODONE IR 10 MG TABLET PO ×3 (01:14→09:47)
[2022-11-07 07:00] VITALS: BP 118/79; PULSE 84; RESP 18; TEMP 36.5; O2SAT 95
[2022-11-07] MEDS: ENOXAPARIN 40 MG/0.4 ML SYRINGE SUBCUT (08:16)
[2022-11-07] MEDS: AMLODIPINE 5 MG TABLET PO (08:16)
[2022-11-07] MEDS: SERTRALINE 50 MG TABLET 25 MG PO (08:16)
[2022-11-07] MEDS: PANTOPRAZOLE DR 40 MG TABLET PO (08:16)
[2022-11-07] MEDS: SODIUM CHLORIDE 1,000 MG TABLET 1000 MG PO (08:16)
[2022-11-07] MEDS: GABAPENTIN 300 MG CAPSULE PO (08:16)
[2022-11-07 10:00] LABS: Blood Urea Nitrogen 7 mg/dL (9-20); Calcium 7.3 mg/dL (8.4-10.2); Carbon Dioxide 27 mmol/L (22-32); Chloride 98 mmol/L (98-107); Estimated Glomerular Filt Rate > 60 mL/min (>60); Glucose 99 mg/dL (80-110); HEMOLYSIS < 15 (0-50); Potassium 3.6 mmol/L (3.4-5.1); Sodium 127 mmol/L (137-145)
--- NOTE | 2022-11-07 11:05 | CM.DPC ---
DCP Discharge SNF Per MD, pt is medically stable to d/c back to SNF today with no identified discharge barriers. JERED called [facility] and confirmed they can still accept today and can provide transport around 1200. JERED met bedside with pt but he was sleeping soundly and nodded in agreement with d/c to [facility] today. JERED called pt's spouse Blanca on [place] and updated on d/c to [facility] and she remains agreeable and appreciative with d/c plan. KATELYNN Fu kindly faxed signed med list, script, no PASRR needed as pt is a return, and d/c orders to [facility] to review. 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 Plan: Patient to d/c back to [facility] for ongoing rehab via facility van at 1200 before safe return home to [place] with spouse who works. Hiral Richards MSW
--- NOTE | 2022-11-07 11:15 | P.DS_ITS ---
History of Present Illness History of Present Illness Date Patient Seen: 10/30/22 Time Patient Seen: 15:23 Chief complaint: worsening pain Narrative: Per admitting provider: This is a 67-year-old male with hypertension and chronic constipation who presents with 2 days of increased abdominal pain, worsening considerably this morning. He says his symptoms actually started 4 months ago when he stumbled on his patio, protecting his shoulder and fracturing four of his spinal vertebra. Since then he has been in a variety of assisted living facilities and has had diarrhea for the last month. He says 2 months ago he was actually in [place] for ?[employer] work on my stomach. ? He seems to mean that he needed to be disimpacted. He has no history of bowel obstruction in the past and no history of abdominal surgery. His CT scan shows a small bowel obstruction. He has hyponatremia, hypokalemia and anemia. He is from [facility] but has been living here in town at an assisted living facility. He has records that indicate he has some dementia but that's not evident on interviewing him today although he is unable to remember the names of the facility where he lives at? Discharge Providers Provider Date of admission: 10/30/22 14:42 Discharge Date: 11/07/22 Primary care physician: Fabian Astudillo MD Consults: 10/30/22 15:28 Consult to Physician Routine Comment: Consulting Provider: Cristal Rojas Reason for consultation: SBO Has provider been notified: Yes Discharge provider: Ze Cleveland MD Summary Hospital Course Discharge Diagnosis: 1. SBO s/p lysis of adhesions 2. Severe osteoporosis 3. Hyponatremia 4. Acute blood loss anemia secondary to surgery 5. Hypertension Hospital Course: Mr. Valencia was admitted for SBO and had surgery done with lysiis of adhesions. He felt improved afterwards with some mild abdominal tenderness. He also had diarrhea and was ordered for loperamide. His sodium was mildly low and he should be encouraged to eat well and have salt tablets. He DOES NOT need to be on a fluid restriction if he is having diarrhea. His lisinopril/HCTZ was held on discharge due to low sodium and normal blood pressures. He should follow up with surgery in 1-2 weeks. He should have workup for his severe osteoporosis and should start calcium and vitamin D. He should have his BMP checked within a week. Exam Vital Signs (past 8 hours): - 11/07/22 07:00 Temperature 97.7 F Pulse Rate 84 Respiratory Rate 18 Blood Pressure 118/79 Pulse Oximetry 95 Oxygen Flow Rate 0 Oxygen Delivery Method Room Air Oxygen Flow Rate 0 Narrative Exam Narrative: General:?no acute distress PULM:?clear, no wheezes, rhonchi, rales CV:?regular rate and rhythm, no murmurs ABD: soft, tender at incision at site EXT: warm and well perfused, no edema Objective Labs 11/06/22 05:18 11/07/22 09:30 Labs: Laboratory Results - last 24 hr 11/07/22 09:30 Sodium 127 L Potassium 3.6 Chloride 98 Carbon Dioxide 27 BUN 7 L Creatinine 0.70 Estimated GFR > 60 BUN/Creatinine Ratio 10.0 Glucose 99 Calcium 7.3 L PFSH Medical History (Updated 11/03/22 @ 00:01 by ) Compression fracture Constipation Femur fracture Hypertension Osteoporosis Surgical History (Updated 10/30/22 @ 15:32 by Ari Campbell MD) H/O Spinal surgery History of hip surgery S/P operative procedure on shoulder Social History household members: spouse and children Smoking Status: Current every day smoker alcohol intake: current Discharge Plan Discharge Plan Patient Disposition: SNF Discharge orders & Medications Prescriptions: New loperamide 2 mg Capsule 2 mg PO QID PRN (Reason: Diarrhea) Qty: 20 0RF sodium chloride 1,000 mg Tablet,Soluble 1,000 mg PO BID Qty: 20 0RF oxycodone 10 mg Tablet 10 mg PO Q4HR PRN (Reason: Pain, Severe (7-10)) Qty: 10 0RF Continued amlodipine 5 mg tablet 5 mg PO DAILY pantoprazole 40 mg tablet,delayed release (DR/EC) 40 mg PO BID gabapentin 300 mg capsule 300 mg PO DAILY sertraline 25 mg tablet 25 mg PO DAILY zolpidem 5 mg tablet 5 mg PO ONCE PM PRN (Reason: Sleep) mirtazapine 15 mg tablet 15 mg PO ONCE PM mesalamine 1.2 gram tablet,delayed release (DR/EC) 2.4 g PO DAILY Discontinued lisinopril-hydrochlorothiazide 20 MG/12.5 MG tablet 1 tab PO BID Qty: 0 oxycodone 15 mg tablet 15 mg PO PRN PRN (Reason: Pain (Scale Score 4-6)) Follow up/Referrals: Fabian Astudillo MD [Primary Care Provider] - Diet/Activity/Treatments Diet: Regular Diet comment: Fluid restriction [facility] Reason for rehabilitation: Post-operative therapy Rehab type: Physical therapy and Occupational therapy Visit Report/Discharge Packet Stand Alone Forms: Patient Portal/API Discharge Data Primary Care Provider: Fabian Astudillo
--- NOTE | 2022-11-07 12:19 | PC.NURSE ---
Discharge Note Patient A&O, VSS, RA, no complaints of pain/discomfort. Patient agreeable to discharge plan. All questions/concerns addressed. Patient able to dress self and pack all belongings with assistance. Report given to RN and [facility], all questions/concerns addressed. Patient picked up by facility transport via wheelchair to POV.
== END 2022-11-07 12:00 | DRG 330 ==
LOC: ED 14:38 → AC 14:42
PROVIDERS: Family Medicine; Internal Medicine; Surgery; Admitting Provider Family Medicine; Emergency Provider Physician Assistant Medical; PCP Family Medicine; Referring Provider Physician Assistant Medical; Visit Provider Family Medicine
PROC: 0DNB0ZZ Release Ileum, Open Approach (ICD-10-PCS; CPT 49000; principal; 2022-10-31 13:30)
DX: K56.50 Intestinal adhesions [bands], unspecified as to partial versus complete obstruction (principal); D62 Acute posthemorrhagic anemia; E87.1 Hypo-osmolality and hyponatremia; M80.08XA Age-related osteoporosis with current pathological fracture, vertebra(e), initial encounter for fracture; K63.2 Fistula of intestine; E87.6 Hypokalemia; I10 Essential (primary) hypertension; K52.9 Noninfective gastroenteritis and colitis, unspecified; K60.4 Rectal fistula; F17.290 Nicotine dependence, other tobacco product, uncomplicated
CPT/HCPCS: 36415; 72100; 74018; 74177; 80048; 80053; 81003; 82784; 83605; 83735; 83935; 84155; 84300; 85014; 85018; 85025; 86334; 87040; 96374; 96375; 99284; 99285; C9290; J0330; J1100; J1170; J1650; J1885; J2250; J2270; J2405; J2704; J3010; J3490; Q9967

== ENCOUNTER 2022-11-12 10:03 | Emergency (ER) | payer MEDICARE, OTHER, SELFPAY ==
[2022-10-30 16:38] VITALS: BMI 22.2
[2022-11-12] VITALS (11 sets, daily range): BP systolic 113–165; BP diastolic 63–81; PULSE 79–104; RESP 14–26; TEMP 36.7; O2SAT 97–100
--- NOTE | 2022-11-12 12:01 | ED_ITS ---
HPI - Abdominal Pain <Richelle Goldstein PA-C - Last Filed: 11/12/22 14:44> General Chief Complaint: Abdominal Pain Stated Complaint: diarrhea Time Seen by Provider: 11/12/22 11:52 Source: patient Mode of arrival: Wheelchair History of Present Illness HPI narrative: Patient is a 67-year-old male who presents after surgery for a small-bowel obstruction on October 31 was discharged from the hospital about a week ago and presents today with frequent loose stools every morning and left-sided abdominal pain., he reports 6-8 stools before breakfast. During the rest of the day, he has less frequent stools. He also has significant left-sided abdominal pain. He denies any fever or chills, has been tolerating a general diet without nausea or vomiting, no urinary symptoms. He is currently taking hydrocodone for pain and reports this partially relieved his pain. 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 Related Data Home Medications Medication Instructions Recorded Confirmed amlodipine 5 mg tablet 5 mg PO DAILY 10/30/22 10/30/22 gabapentin 300 mg capsule 300 mg PO DAILY 10/30/22 10/30/22 mesalamine 1.2 gram tablet,delayed 2.4 g PO DAILY 10/30/22 10/30/22 release mirtazapine 15 mg tablet 15 mg PO ONCE PM 10/30/22 10/30/22 pantoprazole 40 mg tablet,delayed 40 mg PO BID 10/30/22 10/30/22 release sertraline 25 mg tablet 25 mg PO DAILY 10/30/22 10/30/22 zolpidem 5 mg tablet 5 mg PO ONCE PM PRN Sleep 10/30/22 10/30/22 Previous Rx's Medication Instructions Recorded calcium carbonate 600 mg calcium 600 mg PO DAILY #30 tabs 11/07/22 (1,500 mg) tablet (Calcium) cholecalciferol (vitamin D3) 25 25 mcg PO DAILY #30 tabs 11/07/22 mcg (1,000 unit) tablet (Vitamin D3) loperamide 2 mg capsule 2 mg PO QID PRN Diarrhea #20 caps 11/07/22 oxycodone 10 mg tablet 10 mg PO Q4HR PRN Pain, Severe 11/07/22 (7-10) #10 tabs sodium chloride 1,000 mg soluble 1,000 mg PO BID #20 tabs 11/07/22 tablet Allergies Allergy/AdvReac Type Severity Reaction Status Date / Time Penicillins Allergy Mild Verified 10/31/22 11:50 tetracycline AdvReac Severe Photosensit Verified 10/31/22 11:51 ivity Review of Systems <Richelle Goldstein PA-C - Last Filed: 11/12/22 14:44> Review of Systems ROS Unobtainable: All systems reviewed & are unremarkable except as noted in HPI and below Patient History <Richelle Goldstein PA-C - Last Filed: 11/12/22 14:44> Medical History Compression fracture Constipation Femur fracture Hypertension Osteoporosis Surgical History H/O Spinal surgery History of hip surgery S/P operative procedure on shoulder Social History household members: spouse and children Smoking Status: Current every day smoker alcohol intake: current Smoking Status: Current every day smoker alcohol intake frequency: 3 or more drinks per day Substance Use Type: marijuana Exam <Richelle Goldstein PA-C - Last Filed: 11/12/22 14:44> Narrative Exam Narrative: GENERAL: 67 year old patient appears stated age. Well-developed patient, in no distress. NEURO: AOx3. CARDIOVASCULAR: Regular rate and rhythm without murmurs, gallops, or rubs. RESPIRATORY: Clear to auscultation. Breath sounds equal bilaterally. No wheezes, rales, or rhonchi. GASTROINTESTINAL: Active bowel tones. Abdomen soft, tenderness greatest over left lower quadrant, some left quadrant tenderness. Mild right-sided tenderness. No peritoneal signs, well-healing surgical incision. EXTREMITIES: No edema or joint tenderness. SKIN: No rash or erythema of visible areas Initial Vital Signs Initial Vital Signs: Vital Signs Temperature 98.1 F 11/12/22 10:13 Pulse Rate 102 H 11/12/22 10:13 Respiratory Rate 14 11/12/22 10:13 Blood Pressure 121/74 11/12/22 10:13 Pulse Oximetry 98 11/12/22 10:13 Oxygen Delivery Method Room Air 11/12/22 10:13 <Payton De La Vega DO - Last Filed: 11/13/22 07:16> Initial Vital Signs Initial Vital Signs: Vital Signs Temperature 98.1 F 11/12/22 10:13 Pulse Rate 102 H 11/12/22 10:13 Respiratory Rate 14 11/12/22 10:13 Blood Pressure 121/74 11/12/22 10:13 Pulse Oximetry 98 11/12/22 10:13 Oxygen Delivery Method Room Air 11/12/22 10:13 Course <Richelle Goldstein PA-C - Last Filed: 11/12/22 14:44> Orders Ordered: Discontinued Medications Morphine Sulfate (Morphine 2 Mg/Ml Inj) 2 mg IV NOW ONE Stop: 11/12/22 12:08 Last Admin: 11/12/22 12:25 Dose: 2 mg Documented By: HAILEY Ondansetron HCl (Ondansetron 4 Mg Odt) 4 mg PO NOW PRN PRN Reason: Nausea And Vomiting Ondansetron HCl (Ondansetron 4 Mg/2 Ml Inj) 4 mg IV NOW PRN PRN Reason: Nausea And Vomiting Consultations Consultation #1: Spoke with Dr. Stout from surgery at 2:15 p.m. regarding patient presentation and CT results; she recommend testing for C diff today, as long as patient is afebrile and tolerating food, he can call to be seen on Monday in surgery clinic for re-evaluation. She doubts he has any significant obstruction given his copious loose stools and currently tolerating food. If he develops fever, nausea vomiting, significantly worsening pain, he should return to the emergency department. Vital Signs Vital signs: Vital Signs - 8 hr 11/12/22 10:13 11/12/22 10:13 11/12/22 10:13 Temperature 98.1 F Pulse Rate 102 H 104 H Respiratory Rate 14 Blood Pressure 121/74 121/74 Pulse Oximetry 98 97 Oxygen Delivery Method Room Air 11/12/22 10:30 11/12/22 10:30 11/12/22 11:00 Temperature Pulse Rate 94 H Respiratory Rate Blood Pressure 113/69 115/67 Pulse Oximetry 100 Oxygen Delivery Method 11/12/22 11:00 11/12/22 12:25 11/12/22 12:25 Temperature Pulse Rate 88 88 Respiratory Rate 18 23 Blood Pressure 155/77 H Pulse Oximetry 100 99 Oxygen Delivery Method Room Air 11/12/22 12:30 11/12/22 12:30 11/12/22 12:40 Temperature Pulse Rate 83 87 Respiratory Rate 26 H 19 Blood Pressure 147/67 H Pulse Oximetry 100 Oxygen Delivery Method 11/12/22 12:40 11/12/22 12:57 11/12/22 12:57 Temperature Pulse Rate 83 Respiratory Rate Blood Pressure 137/63 147/81 H Pulse Oximetry 99 Oxygen Delivery Method 11/12/22 13:00 11/12/22 13:30 11/12/22 13:49 Temperature Pulse Rate 82 79 82 Respiratory Rate 21 22 Blood Pressure Pulse Oximetry 99 99 100 Oxygen Delivery Method 11/12/22 13:49 11/12/22 14:00 11/12/22 14:00 Temperature Pulse Rate 79 Respiratory Rate 23 Blood Pressure 165/81 H 129/72 Pulse Oximetry 99 Oxygen Delivery Method <Payton De La Vega, - Last Filed: 11/13/22 07:16> Orders Ordered: Discontinued Medications Morphine Sulfate (Morphine 2 Mg/Ml Inj) 2 mg IV NOW ONE Stop: 11/12/22 12:08 Last Admin: 11/12/22 12:25 Dose: 2 mg Documented By: RB Ondansetron HCl (Ondansetron 4 Mg Odt) 4 mg PO NOW PRN PRN Reason: Nausea And Vomiting Ondansetron HCl (Ondansetron 4 Mg/2 Ml Inj) 4 mg IV NOW PRN PRN Reason: Nausea And Vomiting Vital Signs Vital signs: Vital Signs - 8 hr 11/12/22 10:13 11/12/22 10:13 11/12/22 10:13 Temperature 98.1 F Pulse Rate 102 H 104 H Respiratory Rate 14 Blood Pressure 121/74 121/74 Pulse Oximetry 98 97 Oxygen Delivery Method Room Air 11/12/22 10:30 11/12/22 10:30 11/12/22 11:00 Temperature Pulse Rate 94 H Respiratory Rate Blood Pressure 113/69 115/67 Pulse Oximetry 100 Oxygen Delivery Method 11/12/22 11:00 11/12/22 12:25 11/12/22 12:25 Temperature Pulse Rate 88 88 Respiratory Rate 18 23 Blood Pressure 155/77 H Pulse Oximetry 100 99 Oxygen Delivery Method Room Air 11/12/22 12:30 11/12/22 12:30 11/12/22 12:40 Temperature Pulse Rate 83 87 Respiratory Rate 26 H 19 Blood Pressure 147/67 H Pulse Oximetry 100 Oxygen Delivery Method 11/12/22 12:40 11/12/22 12:57 11/12/22 12:57 Temperature Pulse Rate 83 Respiratory Rate Blood Pressure 137/63 147/81 H Pulse Oximetry 99 Oxygen Delivery Method 11/12/22 13:00 11/12/22 13:30 11/12/22 13:49 Temperature Pulse Rate 82 79 82 Respiratory Rate 21 22 Blood Pressure Pulse Oximetry 99 99 100 Oxygen Delivery Method 11/12/22 13:49 11/12/22 14:00 11/12/22 14:00 Temperature Pulse Rate 79 Respiratory Rate 23 Blood Pressure 165/81 H 129/72 Pulse Oximetry 99 Oxygen Delivery Method MDM - Abdominal Pain <Richelle Goldstein PA-C - Last Filed: 11/12/22 14:44> Lab Data 11/12/22 12:15 11/12/22 12:15 Labs: Lab Results 11/12/22 11/12/22 11/12/22 Range/Units 12:15 12:15 14:45 WBC 7.0 (4.5-11.0) X10^3/uL RBC 3.02 L (4.5-5.9) X10^6/uL Hgb 8.7 L (13.5-17.5) g/dL Hct 25.9 L (41-53) % MCV 85.8 (80-100) fL MCH 28.9 (26-34) PG MCHC 33.7 (30-36) % RDW 16.1 H (11.6-14.8) % Plt Count 574 H (150-400) X10^3/uL Neut % (Auto) 54.2 (50-75) % Lymph % (Auto) 26.6 (25-40) % Bacon % (Auto) 14.8 H (3-14) % Eos % (Auto) 2.9 (2-4) % Baso % (Auto) 1.5 (0-2) % Neut # (Auto) 3800 (5207-5334) /uL Lymph # (Auto) 1900 (3105-2312) /uL Bacon # (Auto) 1000 H (0-900) /uL Eos # (Auto) 200 (0-450) /uL Baso # (Auto) 100 (0-100) /uL Sodium 128 L (137-145) mmol/L Potassium 4.2 (3.4-5.1) mmol/L Chloride 99 (98-107) mmol/L Carbon Dioxide 28 (22-32) mmol/L BUN 7 L (9-20) mg/dL Creatinine 0.74 (0.66-1.25) mg/dL Estimated GFR > 60 (>60) mL/min BUN/Creatinine Ratio 9.5 (6-22) Glucose 94 (80-110) mg/dL Calcium 7.8 L (8.4-10.2) mg/dL Total Bilirubin 0.1 L (0.2-1.3) mg/dL AST 22 (17-59) IU/L ALT 19 (<50) IU/L Alkaline Phosphatase 110 (38-126) U/L Total Protein 5.2 L (6.3-8.2) g/dL Albumin 2.4 L (3.5-5.0) g/dL Globulin 2.8 (1.7-4.1) g/dL Albumin/Globulin Ratio 0.9 L (1.0-2.8) Lipase 41 (23-300) U/L C. difficile Tox (PCR) Negative for c. diff (Negative) Point of care testing: Urine Dip Bedside Urine Glucose Negative Bedside Urine Bilirubin - Negative Bedside Urine Ketone - Negative Urine Specific [place] 1.010 Bedside Urine Occult Blood - Negative Bedside Urine pH 7.0 Bedside Urine Protein - Negative Bedside Urine Urobilinogen - Negative Bedside Urine Nitrite - Negative Bedside Urine Leukocytes - Negative Esterase Imaging Data CT scan - abdomen/pelvis: Radiologist's Impression: Patient: Andriy Valencia MR#: [id number] : 1955 Acct:[id number] Age/Sex: 67 Date of Service: 11/12/22 Loc: ED Accession Number: [id number] ?? Procedure: CT abdomen pelvis w con Ordering Provider: Richelle Goldstein P.A-C PROCEDURE:? CT ABDOMEN PELVIS W CON ? INDICATIONS:? two weeks post-op SBO, wth abd pain and diarrhea ? TECHNIQUE:? After the administration of intravenous contrast, axial sections acquired from the lung bases to the pubic symphysis.? Coronal and sagittal reformats were performed.? For radiation dose reduction, the following was used:? automated exposure control, adjustment of mA and/or kV according to patient size.? ? COMPARISON:? [facility], CT, CT ABDOMEN PELVIS W CON, 10/30/2022, 12:14. ? FINDINGS: ? Lower thorax:? Small left pleural effusion with bibasilar atelectasis ? Liver:? Normal in size and attenuation. No contour deformity present. ? Biliary system:? No calcified cholelithiasis or pericholecystic inflammation.? No intra or extrahepatic bile duct dilatation. ? Pancreas:? Unremarkable without mass or inflammation evident. ? Spleen:? Normal in size and density. ? Adrenals:? Normal morphology and density. ? Reproductive system:? Unremarkable as visualized. ? Urinary system:? Normal renal size and attenuation. No renal calculi, hydronephrosis, or solid mass present.? Urinary bladder unremarkable. ? Gastrointestinal system:? Wall thickening and inflammatory change noted descending and sigmoid colon which has increased from the prior is now associated with large amount of upstream fecal retention in the colon.? Small bowel is decompressed without evidence of obstruction.? Wall thickening of the proximal small bowel may related to enteritis ? Appendix:? No findings to suggest acute appendicitis. ? Peritoneal spaces:? No mesenteric or retroperitoneal adenopathy.? No free air.? No free fluid.? ? Vasculature:? Aortic atherosclerotic vascular calcification noted without evidence of aneurysm. ? Abdominal wall:? Abdominal wall intact without evidence of ventral or inguinal hernias. ? Musculoskeletal:? Normal bone mineralization.? Degenerative disc disease and arthropathy noted in lower lumbar spine. Generalized decreased osseous mineralization noted.? The femoral nail and compression screw in good position multiple compression fractures throughout the visualized thoracolumbar spine is stable from the prior? No acute fractures.? ? IMPRESSION: ? 1. Colitis in the descending and sigmoid colon associated with large amount of upstream fecal retention, but no bowel obstruction.? Infectious, inflammatory and less likely ischemic and etiologies considered, but no pneumatosis present.? There is mild wall thickening in the proximal small bowel this may reflect enteritis. ? 2. Small bibasilar pleural effusions with associated atelectasis.? ? 3. Multilevel compression fractures throughout the thoracolumbar spine visualized remains stable from the prior ? ? ? Approved by: Deon Koch M.D. on 11/12/2022 at 12:33? MDM Narrative Medical decision making narrative: Multiple etiologies for patient's symptoms considered including, but not limited to: Postoperative infection, small-bowel obstruction, diverticulitis. Labs reassuring without any leukocytosis, electrolyte abnormality, evidence of urinary tract infection. Patient's pain controlled while in emergency room with IV morphine. CT shows evidence of colitis, discussed with Dr. Stout who recommends testing for C diff and having close follow-up in surgery clinic. No need for admission or other intervention today given the patient is not vomiting, having frequent copious stools, afebrile, no leukocytosis. Patient will return to assisted living. Patient's symptoms improved over duration of stay with above-stated therapies. Findings and discharge diagnosis discussed with patient/family followed by verbalization of understanding Return precautions discussed with patient/family whom verbalize understanding of diagnosis and plan <Payton De La Vega, - Last Filed: 11/13/22 07:16> Lab Data Labs: Lab Results 11/12/22 11/12/22 11/12/22 Range/Units 12:15 12:15 14:45 WBC 7.0 (4.5-11.0) X10^3/uL RBC 3.02 L (4.5-5.9) X10^6/uL Hgb 8.7 L (13.5-17.5) g/dL Hct 25.9 L (41-53) % MCV 85.8 (80-100) fL MCH 28.9 (26-34) PG MCHC 33.7 (30-36) % RDW 16.1 H (11.6-14.8) % Plt Count 574 H (150-400) X10^3/uL Neut % (Auto) 54.2 (50-75) % Lymph % (Auto) 26.6 (25-40) % Bacon % (Auto) 14.8 H (3-14) % Eos % (Auto) 2.9 (2-4) % Baso % (Auto) 1.5 (0-2) % Neut # (Auto) 3800 (0380-1189) /uL Lymph # (Auto) 1900 (8108-3941) /uL Bacon # (Auto) 1000 H (0-900) /uL Eos # (Auto) 200 (0-450) /uL Baso # (Auto) 100 (0-100) /uL Sodium 128 L (137-145) mmol/L Potassium 4.2 (3.4-5.1) mmol/L Chloride 99 (98-107) mmol/L Carbon Dioxide 28 (22-32) mmol/L BUN 7 L (9-20) mg/dL Creatinine 0.74 (0.66-1.25) mg/dL Estimated GFR > 60 (>60) mL/min BUN/Creatinine Ratio 9.5 (6-22) Glucose 94 (80-110) mg/dL Calcium 7.8 L (8.4-10.2) mg/dL Total Bilirubin 0.1 L (0.2-1.3) mg/dL AST 22 (17-59) IU/L ALT 19 (<50) IU/L Alkaline Phosphatase 110 (38-126) U/L Total Protein 5.2 L (6.3-8.2) g/dL Albumin 2.4 L (3.5-5.0) g/dL Globulin 2.8 (1.7-4.1) g/dL Albumin/Globulin Ratio 0.9 L (1.0-2.8) Lipase 41 (23-300) U/L C. difficile Tox (PCR) Negative for c. diff (Negative) Point of care testing: Urine Dip Bedside Urine Glucose Negative Bedside Urine Bilirubin - Negative Bedside Urine Ketone - Negative Urine Specific [place] 1.010 Bedside Urine Occult Blood - Negative Bedside Urine pH 7.0 Bedside Urine Protein - Negative Bedside Urine Urobilinogen - Negative Bedside Urine Nitrite - Negative Bedside Urine Leukocytes - Negative Esterase ECG Data Interpretation: [place]- Sinus rhythm rate 91 AL interval 172 QRS 82 QTC 452 low voltage T-wave inversion noted in lead 3 no ischemic changes similar to previous EKGs Discharge Plan Departure Patient Disposition: Assisted Living Clinical Impression: Colitis Instructions: DI for Colitis Activity Restrictions/Additional Instructions: *You have been diagnosed with colitis. Please collect a c. diff sample and return to lab. notify Dr. Rojas with results. you may call the surgery clinic on Monday at 9am to request an ER follow-up appointment. Please return if you develop fever, nausea vomiting, severe or worsening pain or other concerning symptoms. *What to do: *Please continue to take your regular medications as directed. [ ] New medication prescriptions sent to your pharmacy: [ ] [ ] New medication written as a paper prescription [x ] No new medications given *Please follow up with your primary care provider in 2-3 days, call for an appointment. Let them know you were seen in the Emergency Department and that we ask that you be seen in follow up. We will electronically transmit a record of today's note if your PCP is in our system *If you do not have a primary care provider please contact the [facility] Resource line at [phone]. They will ask some questions about your medical history and help get you set up with a doctor in the community. *Return to Emergency Department if you should have any new, worsening or concerning symptoms, such as [fever greater than 101 F, shaking chills, worsening pain, persistent vomiting or other bothersome symptoms] Prescriptions: No Action amlodipine 5 mg tablet 5 mg PO DAILY pantoprazole 40 mg tablet,delayed release (DR/EC) 40 mg PO BID gabapentin 300 mg capsule 300 mg PO DAILY sertraline 25 mg tablet 25 mg PO DAILY zolpidem 5 mg tablet 5 mg PO ONCE PM PRN (Reason: Sleep) mirtazapine 15 mg tablet 15 mg PO ONCE PM mesalamine 1.2 gram tablet,delayed release (DR/EC) 2.4 g PO DAILY loperamide 2 mg Capsule 2 mg PO QID PRN (Reason: Diarrhea) Qty: 20 0RF sodium chloride 1,000 mg Tablet,Soluble 1,000 mg PO BID Qty: 20 0RF oxycodone 10 mg Tablet 10 mg PO Q4HR PRN (Reason: Pain, Severe (7-10)) Qty: 10 0RF calcium carbonate [Calcium 600] 600 mg calcium (1,500 mg) tablet 600 mg PO DAILY Qty: 30 0RF cholecalciferol (vitamin D3) [Vitamin D3] 25 mcg (1,000 unit) tablet 25 mcg PO DAILY Qty: 30 0RF Referrals: Fabian Astudillo MD [Primary Care Provider] - SNF Discharge Plan Transfer to: [facility] Provider Discharge comment: please collect c difficile sample and report results to Dr. Rojas. Call surgery clinic on Monday morning at 9am to request ER follow-up appt. Return to ED if develops fever, nausea or vomiting, other sympt oms. I certify the postop hospital custodial care is medically necessary on a c ontinuing basis for any conditions for which he/ she received care during this hospitalization.: Yes The receiving facility has agreed to accept transfer and provide medical t reatment.: Yes Discharge Health Status Precautions: [place] Diet/Activity/Treatments Diet: Diet as Tolerated Skin/Wound/Dressing Care Report to your healthcare provider any signs of infection, such as: chills, fever, increased pain and unusual drainage Dressing: Continue postop dressing to abdomen <Payton De La Vega, - Last Filed: 11/13/22 07:16> Cosign ED Attending Cosignature Attestation: I was immediately available in the department for consultation. Documentation has been reviewed.
--- NOTE | 2022-11-12 12:07 | DI.CT.S_ITS ---
PROCEDURE: CT ABDOMEN PELVIS W CON INDICATIONS: two weeks post-op SBO, wth abd pain and diarrhea TECHNIQUE: After the administration of intravenous contrast, axial sections acquired from the lung bases to the pubic symphysis. Coronal and sagittal reformats were performed. For radiation dose reduction, the following was used: automated exposure control, adjustment of mA and/or kV according to patient size. COMPARISON: [facility], CT, CT ABDOMEN PELVIS W CON, 10/30/2022, 12:14. FINDINGS: Lower thorax: Small left pleural effusion with bibasilar atelectasis Liver: Normal in size and attenuation. No contour deformity present. Biliary system: No calcified cholelithiasis or pericholecystic inflammation. No intra or extrahepatic bile duct dilatation. Pancreas: Unremarkable without mass or inflammation evident. Spleen: Normal in size and density. Adrenals: Normal morphology and density. Reproductive system: Unremarkable as visualized. Urinary system: Normal renal size and attenuation. No renal calculi, hydronephrosis, or solid mass present. Urinary bladder unremarkable. Gastrointestinal system: Wall thickening and inflammatory change noted descending and sigmoid colon which has increased from the prior is now associated with large amount of upstream fecal retention in the colon. Small bowel is decompressed without evidence of obstruction. Wall thickening of the proximal small bowel may related to enteritis Appendix: No findings to suggest acute appendicitis. Peritoneal spaces: No mesenteric or retroperitoneal adenopathy. No free air. No free fluid. Vasculature: Aortic atherosclerotic vascular calcification noted without evidence of aneurysm. Abdominal wall: Abdominal wall intact without evidence of ventral or inguinal hernias. Musculoskeletal: Normal bone mineralization. Degenerative disc disease and arthropathy noted in lower lumbar spine. Generalized decreased osseous mineralization noted. The femoral nail and compression screw in good position multiple compression fractures throughout the visualized thoracolumbar spine is stable from the prior No acute fractures. IMPRESSION: 1. Colitis in the descending and sigmoid colon associated with large amount of upstream fecal retention, but no bowel obstruction. Infectious, inflammatory and less likely ischemic and etiologies considered, but no pneumatosis present. There is mild wall thickening in the proximal small bowel this may reflect enteritis. 2. Small bibasilar pleural effusions with associated atelectasis. 3. Multilevel compression fractures throughout the thoracolumbar spine visualized remains stable from the prior Approved by: Deon Koch M.D. on 11/12/2022 at 12:33
[2022-11-12] MEDS: MORPHINE 2 MG/ML INJ IV (12:25)
[2022-11-12 12:38] LABS: Add Manual Diff / Slide Review NO; Basophils Absolute Auto 100 /uL (0-100); Basophils Percent Auto 1.5 % (0-2); Eosinophils Absolute Auto 200 /uL (0-450); Eosinophils Percent Auto 2.9 % (2-4); Hematocrit 25.9 % (41-53); Hemoglobin 8.7 g/dL (13.5-17.5); Lymphocytes Absolute Auto 1900 /uL (1100-4500); Lymphocytes Percent Auto 26.6 % (25-40); Mean Corpuscular HGB Conc 33.7 % (30-36); Mean Corpuscular Hemoglobin 28.9 PG (26-34); Mean Corpuscular Volume 85.8 fL (80-100); Monocytes Absolute Auto 1000 /uL (0-900); Monocytes Percent Auto 14.8 % (3-14); Neutrophils Absolute Auto 3800 /uL (1500-7000); Neutrophils Percent Auto 54.2 % (50-75); Platelet Count 574 X10^3/uL (150-400); Red Blood Cell Count 3.02 X10^6/uL (4.5-5.9); Red Cell Distribution Width 16.1 % (11.6-14.8)
[2022-11-12 12:55] LABS: Alanine Aminotransferase 19 IU/L (<50); Albumin 2.4 g/dL (3.5-5.0); Albumin Globulin Ratio 0.9 (1.0-2.8); Alkaline Phosphatase 110 U/L (38-126); Aspartate Aminotransferase 22 IU/L (17-59); BUN Creatinine Ratio 9.5 (6-22); Bilirubin Total 0.1 mg/dL (0.2-1.3); Blood Urea Nitrogen 7 mg/dL (9-20); Calcium 7.8 mg/dL (8.4-10.2); Carbon Dioxide 28 mmol/L (22-32); Chloride 99 mmol/L (98-107); Estimated Glomerular Filt Rate > 60 mL/min (>60); Globulin 2.8 g/dL (1.7-4.1); Glucose 94 mg/dL (80-110); HEMOLYSIS 18 (0-50); Lipase 41 U/L (23-300); Potassium 4.2 mmol/L (3.4-5.1); Sodium 128 mmol/L (137-145); Total Protein 5.2 g/dL (6.3-8.2)
[2022-11-12 16:05] LABS: Clostridium Difficile Tox PCR Negative for C. diff (Negative)
== END 2022-11-12 14:55 ==
PROVIDERS: Emergency Medicine; Emergency Provider Physician Assistant; PCP Family Medicine
DX: K52.9 Noninfective gastroenteritis and colitis, unspecified (principal); Z79.899 Other long term (current) drug therapy
CPT/HCPCS: 36415; 74177; 80053; 81003; 83690; 85025; 87493; 93005; 96374; 99284; J2270; Q9967

== ENCOUNTER 2022-11-20 09:00 | Emergency (ER) | payer MEDICARE, OTHER, SELFPAY ==
[2022-10-30 16:38] VITALS: BMI 22.2
[2022-11-20 09:04] VITALS: BP 126/60; PULSE 87; RESP 16; TEMP 36.4; BMI 21.5
--- NOTE | 2022-11-20 09:09 | ED_ITS ---
HPI - General Adult General Chief complaint: Extremity Problem,Nontraumatic Stated complaint: LT arm, rt leg swelling and back of legs Time Seen by Provider: 11/20/22 09:08 History of Present Illness HPI narrative: 67-year-old male with history of chronic constipation, hypertension and recent hospitalization for a small bowel obstruction and surgery for lysis of adhesions and then subsequent visit a few days after discharge for frequent loose stools and left-sided abdominal pain. He had another extensive workup with relatively unremarkable labs and a repeat CT scan which demonstrated colitis in the descending and sigmoid colon with fecal retention but no evidence of obstruction. He states that he has no chest pain and no shortness of breath. He is not dizzy nor weak or lightheaded. He states that he has been constipated and been straining on the toilet and been having difficulty moving his bowels. He is passing gas without difficulty. He denies abdominal pain Related Data Home Medications Medication Instructions Recorded Confirmed amlodipine 5 mg tablet 5 mg PO DAILY 10/30/22 11/16/22 gabapentin 300 mg capsule 300 mg PO DAILY 10/30/22 11/16/22 mesalamine 1.2 gram tablet,delayed 2.4 g PO DAILY 10/30/22 11/16/22 release mirtazapine 15 mg tablet 15 mg PO ONCE PM 10/30/22 11/16/22 pantoprazole 40 mg tablet,delayed 40 mg PO BID 10/30/22 11/16/22 release sertraline 25 mg tablet 25 mg PO DAILY 10/30/22 11/16/22 zolpidem 5 mg tablet 5 mg PO ONCE PM PRN Sleep 10/30/22 11/16/22 Previous Rx's Medication Instructions Recorded calcium carbonate 600 mg calcium 600 mg PO DAILY #30 tabs 11/07/22 (1,500 mg) tablet (Calcium) cholecalciferol (vitamin D3) 25 25 mcg PO DAILY #30 tabs 11/07/22 mcg (1,000 unit) tablet (Vitamin D3) loperamide 2 mg capsule 2 mg PO QID PRN Diarrhea #20 caps 11/07/22 oxycodone 10 mg tablet 10 mg PO Q4HR PRN Pain, Severe 11/07/22 (7-10) #10 tabs sodium chloride 1,000 mg soluble 1,000 mg PO BID #20 tabs 11/07/22 tablet Allergies Allergy/AdvReac Type Severity Reaction Status Date / Time Penicillins Allergy Mild Verified 11/16/22 10:11 tetracycline AdvReac Severe Photosensit Verified 11/16/22 10:11 ivity Review of Systems Review of Systems Narrative: GENERAL: Denies chills, fatigue, malaise, fever, sweats. HEENT: Denies sinus pain, ear pain, sore throat, difficulty swallowing, dizziness. RESPIRATORY: Denies dyspnea, cough, wheezing, hemoptysis, sputum. CARDIOVASCULAR: See HPI GASTROINTESTINAL: See HPI : Denies dysuria, frequency, incontinence, hematuria, urinary retention. MUSCULOSKELETAL: denies weakness, joint pain, or bony pain SKIN: Denies rash, skin lesions, or other NEUROLOGIC: Denies weakness, headache, numbness, change in speech, confusion, seizures, incoordination. PSYCHIATRIC: No concerning psychosocial issues. 12 point review of systems is negative except for those stated above Patient History Medical History Compression fracture Constipation Femur fracture Hypertension Osteoporosis Surgical History H/O Spinal surgery History of hip surgery S/P operative procedure on shoulder Social History household members: spouse and children Smoking Status: Current every day smoker alcohol intake: current Smoking Status: Current every day smoker alcohol intake frequency: 3 or more drinks per day Substance Use Type: marijuana Exam Narrative Exam Narrative: GENERAL: [67] year old patient appears stated age. Well-developed patient, in mild distress. HEAD: Atraumatic. Normocephalic. EYES: Pupils equal round and reactive. Extraocular motions intact. No scleral icterus. No injection or drainage. ENT: Nose without bleeding, purulent drainage. Throat without erythema, tonsillar hypertrophy or exudate. Airway patent. NECK: Trachea midline. Non tender CARDIOVASCULAR: Regular rate and rhythm without murmurs, gallops, or rubs. RESPIRATORY: Clear to auscultation. Breath sounds equal bilaterally. No wheezes, rales, or rhonchi. GASTROINTESTINAL: Abdomen soft, non-tender, slightly distended with present but decreased bowel sounds, incision is clean, dry and intact EXTREMITIES: 1+ pitting edema in bilateral lower extremities BACK: Nontender without deformity or crepitance. No flank tenderness. NEURO: AOx3. SKIN: No rash or erythema of visible areas Initial Vital Signs Initial Vital Signs: Vital Signs Temperature 97.5 F L 11/20/22 09:04 Pulse Rate 87 11/20/22 09:04 Respiratory Rate 16 11/20/22 09:04 Blood Pressure 126/60 11/20/22 09:04 Oxygen Delivery Method Room Air 11/20/22 09:04 Course Orders Ordered: ED Orders 11/20/22 09:24 Chest [XR chest 1V] Stat EKG-12 Lead Stat 11/20/22 10:01 NT-proBNP (BNP-Adult 18+) Stat PTT Partial Thromboplastin Kwasi Stat Prothrombin Time INR Stat 11/20/22 10:15 Complete Blood Count AUTO DIFF Stat Comprehensive Metabolic Panel Stat Lipase Stat Magnesium Stat Troponin & CK Cardiac Panel Stat Discontinued Medications Bisacodyl (Bisacodyl 10 Mg Supp) 10 mg [place] NOW ONE Stop: 11/20/22 11:44 Last Admin: 11/20/22 11:59 Dose: 10 mg Documented By: SPF Vital Signs Vital signs: Vital Signs - 8 hr 11/20/22 09:04 11/20/22 11:37 11/20/22 11:38 Temperature 97.5 F L Pulse Rate 87 79 Respiratory Rate 16 Blood Pressure 126/60 152/70 H Pulse Oximetry 98 Oxygen Delivery Method Room Air Room Air 11/20/22 12:00 11/20/22 12:00 11/20/22 12:04 Temperature Pulse Rate 82 Respiratory Rate 14 Blood Pressure 123/68 Pulse Oximetry 98 Oxygen Delivery Method Medical Decision Making Lab Data 11/20/22 10:15 11/20/22 10:15 Labs: Lab Results 11/20/22 11/20/22 11/20/22 Range/Units 10:01 10:01 10:15 WBC 7.7 (4.5-11.0) X10^3/uL RBC 2.83 L (4.5-5.9) X10^6/uL Hgb 8.2 L (13.5-17.5) g/dL Hct 24.4 L (41-53) % MCV 86.2 (80-100) fL MCH 29.1 (26-34) PG MCHC 33.8 (30-36) % RDW 15.9 H (11.6-14.8) % Plt Count 582 H (150-400) X10^3/uL Neut % (Auto) 63.5 (50-75) % Lymph % (Auto) 19.6 L (25-40) % [facility] % (Auto) 13.3 (3-14) % Eos % (Auto) 2.2 (2-4) % Baso % (Auto) 1.4 (0-2) % Neut # (Auto) 4900 (2777-2282) /uL Lymph # (Auto) 1500 (2843-9566) /uL [facility] # (Auto) 1000 H (0-900) /uL Eos # (Auto) 200 (0-450) /uL Baso # (Auto) 100 (0-100) /uL PT 11.8 (10.1-12.7) SECONDS INR 1.0 (0.9-1.3) APTT 23 L (26-36) SECONDS Sodium (137-145) mmol/L Potassium (3.4-5.1) mmol/L Chloride (98-107) mmol/L Carbon Dioxide (22-32) mmol/L BUN (9-20) mg/dL Creatinine (0.66-1.25) mg/dL Estimated GFR (>60) mL/min BUN/Creatinine Ratio (6-22) Glucose (80-110) mg/dL Calcium (8.4-10.2) mg/dL Magnesium (1.6-2.3) mg/dL Total Bilirubin (0.2-1.3) mg/dL AST (17-59) IU/L ALT (<50) IU/L Alkaline Phosphatase (38-126) U/L Total Creatine Kinase (55-170) U/L Troponin I (0.01-0.034) ng/mL NT-Pro-B Natriuret Pep 674 H (<125) pg/mL Total Protein (6.3-8.2) g/dL Albumin (3.5-5.0) g/dL Globulin (1.7-4.1) g/dL Albumin/Globulin Ratio (1.0-2.8) Lipase (23-300) U/L // Range/Units 10:15 WBC (4.5-11.0) X10^3/uL RBC (4.5-5.9) X10^6/uL Hgb (13.5-17.5) g/dL Hct (41-53) % MCV (80-100) fL MCH (26-34) PG MCHC (30-36) % RDW (11.6-14.8) % Plt Count (150-400) X10^3/uL Neut % (Auto) (50-75) % Lymph % (Auto) (25-40) % [facility] % (Auto) (3-14) % Eos % (Auto) (2-4) % Baso % (Auto) (0-2) % Neut # (Auto) (9575-9974) /uL Lymph # (Auto) (8508-5099) /uL [facility] # (Auto) (0-900) /uL Eos # (Auto) (0-450) /uL Baso # (Auto) (0-100) /uL PT (10.1-12.7) SECONDS INR (0.9-1.3) APTT (26-36) SECONDS Sodium 129 L (137-145) mmol/L Potassium 4.0 (3.4-5.1) mmol/L Chloride 102 (98-107) mmol/L Carbon Dioxide 24 (22-32) mmol/L BUN 12 (9-20) mg/dL Creatinine 0.73 (0.66-1.25) mg/dL Estimated GFR > 60 (>60) mL/min BUN/Creatinine Ratio 16.4 (6-22) Glucose 97 (80-110) mg/dL Calcium 7.8 L (8.4-10.2) mg/dL Magnesium 1.8 (1.6-2.3) mg/dL Total Bilirubin 0.2 (0.2-1.3) mg/dL AST 17 (17-59) IU/L ALT 13 (<50) IU/L Alkaline Phosphatase 88 (38-126) U/L Total Creatine Kinase 21 L (55-170) U/L Troponin I < 0.012 (0.01-0.034) ng/mL NT-Pro-B Natriuret Pep (<125) pg/mL Total Protein 5.3 L (6.3-8.2) g/dL Albumin 2.3 L (3.5-5.0) g/dL Globulin 3.0 (1.7-4.1) g/dL Albumin/Globulin Ratio 0.8 L (1.0-2.8) Lipase 20 L D (23-300) U/L MDM Narrative Medical decision making narrative: [67] year old patient presents with constipation, no abdominal pain, still passing gas, swelling of hands and feet Multiple etiologies for patient's symptoms considered including, but not limited to: [Constipation versus bowel obstruction versus CHF versus renal failure versus other] Prior Charts reviewed in our EMR Primary Historian: patient Labs reviewed and interpreted by myself: No leukocytosis or left shift, hemoglobin is 8.2 (typical range 7.2 to 9.7), sodium 129, other electrolytes within normal limits, creatinine 0.73 Imaging reviewed: Chest x-ray without acute findings Patient's history and physical exam is reassuring, only complaint is of some swelling of his extremities and constipation. He denies any shortness of breath or chest pain. He has no abdominal pain. He is not dizzy nor weak or lightheaded. Advanced imaging discussed but not performed today given his largely asymptomatic presentation. We discussed administration of a Dulcolax hernandez ppository here plus or minus a enema but he would prefer to do this at home. He is given return precautions and questions have been answered to his apparent satisfaction. There is no evidence of renal failure or significant liver failure. He does have a slight bump in his BNP but is absent of any shortness of breath or abnormal lung findings. We elected not to give diuretics to address his minimal lower extremity edema because his sodium is already slightly low and we are encouraging fluids to help get his bowels moving. Patient's symptoms improved over duration of stay with above-stated therapies. Findings and discharge diagnosis discussed with patient/family followed by verbalization of understanding Return precautions discussed with patient/family whom verbalize understanding of diagnosis and plan Discharge Plan Departure Patient Disposition: Home Clinical Impression: Acute constipation, Bilateral edema of lower extremity Instructions: DI for Constipation Activity Restrictions/Additional Instructions: *You have been diagnosed with [ abdominal pain due to constipation ] *What to do: *Take over the counter medications as directed: 1. Metamucil - is a bulk forming laxative and adds fiber 2. Colace - softens your stool 3. Dulcolax suppository - stimulates your bowels *Follow up with your primary care provider in 2-3 days, call for appointment *Return to ER if you should have any new, worsening or concerning s ymptoms *Drink plenty of water and eat foods high in fiber *Stay as active as you can as this helps move your bowels as well Prescriptions: No Action amlodipine 5 mg tablet 5 mg PO DAILY pantoprazole 40 mg tablet,delayed release (DR/EC) 40 mg PO BID gabapentin 300 mg capsule 300 mg PO DAILY sertraline 25 mg tablet 25 mg PO DAILY zolpidem 5 mg tablet 5 mg PO ONCE PM PRN (Reason: Sleep) mirtazapine 15 mg tablet 15 mg PO ONCE PM mesalamine 1.2 gram tablet,delayed release (DR/EC) 2.4 g PO DAILY loperamide 2 mg Capsule 2 mg PO QID PRN (Reason: Diarrhea) Qty: 20 0RF sodium chloride 1,000 mg Tablet,Soluble 1,000 mg PO BID Qty: 20 0RF oxycodone 10 mg Tablet 10 mg PO Q4HR PRN (Reason: Pain, Severe (7-10)) Qty: 10 0RF calcium carbonate [Calcium 600] 600 mg calcium (1,500 mg) tablet 600 mg PO DAILY Qty: 30 0RF cholecalciferol (vitamin D3) [Vitamin D3] 25 mcg (1,000 unit) tablet 25 mcg PO DAILY Qty: 30 0RF Referrals: Fabian Astudillo MD [Primary Care Provider] - Stand Alone Forms: Patient Portal/API
--- NOTE | 2022-11-20 09:24 | DI.RAD.S_ITS ---
PROCEDURE: XR CHEST 1V INDICATIONS: widespread edema, CHF? TECHNIQUE: One view of the chest was acquired. COMPARISON: [facility], CT, CT ABDOMEN PELVIS W CON, 11/12/2022, 12:55. [facility], CR, XR CHEST 1 VIEW, 08/22/2021, 22:21. [facility], CR, CHEST 1 VIEW, 12/04/2013, 12:03. FINDINGS: Surgical changes and devices: Left shoulder arthroplasty hardware is seen. Lungs and pleura: An incomplete inspiratory result is noted, causing a crowded appearance to the lung markings. No focal infiltrates are seen. No pneumothorax or significant pleural effusions are seen. Mediastinum: The cardiac contours are within normal limits. The aorta demonstrates calcification and tortuosity. Bones and chest wall: No suspicious bony lesions. Overlying soft tissues appear unremarkable. IMPRESSION: Limited portable chest examination, without a significant cardiopulmonary abnormality identified. Postoperative and degenerative changes are seen. Dictated by: Ang Gibson M.D. on 11/20/2022 at 9:03 Approved by: Ang Gibson M.D. on 11/20/2022 at 9:04
[2022-11-20 10:23] LABS: Add Manual Diff / Slide Review NO; Basophils Absolute Auto 100 /uL (0-100); Basophils Percent Auto 1.4 % (0-2); Eosinophils Absolute Auto 200 /uL (0-450); Eosinophils Percent Auto 2.2 % (2-4); Hematocrit 24.4 % (41-53); Hemoglobin 8.2 g/dL (13.5-17.5); Lymphocytes Absolute Auto 1500 /uL (1100-4500); Lymphocytes Percent Auto 19.6 % (25-40); Mean Corpuscular HGB Conc 33.8 % (30-36); Mean Corpuscular Hemoglobin 29.1 PG (26-34); Mean Corpuscular Volume 86.2 fL (80-100); Monocytes Absolute Auto 1000 /uL (0-900); Monocytes Percent Auto 13.3 % (3-14); Neutrophils Absolute Auto 4900 /uL (1500-7000); Neutrophils Percent Auto 63.5 % (50-75); Platelet Count 582 X10^3/uL (150-400); Red Blood Cell Count 2.83 X10^6/uL (4.5-5.9); Red Cell Distribution Width 15.9 % (11.6-14.8); White Blood Cell Count 7.7 X10^3/uL (4.5-11.0)
[2022-11-20 10:30] LABS: Prothrombin Time 11.8 SECONDS (10.1-12.7)
[2022-11-20 10:33] LABS: PTT Partial Thromboplastin Tim 23 SECONDS (26-36)
[2022-11-20 10:46] LABS: Alanine Aminotransferase 13 IU/L (<50); Albumin 2.3 g/dL (3.5-5.0); Albumin Globulin Ratio 0.8 (1.0-2.8); Alkaline Phosphatase 88 U/L (38-126); Aspartate Aminotransferase 17 IU/L (17-59); BUN Creatinine Ratio 16.4 (6-22); Bilirubin Total 0.2 mg/dL (0.2-1.3); Blood Urea Nitrogen 12 mg/dL (9-20); Calcium 7.8 mg/dL (8.4-10.2); Carbon Dioxide 24 mmol/L (22-32); Chloride 102 mmol/L (98-107); Creatine Kinase 21 U/L (55-170); Estimated Glomerular Filt Rate > 60 mL/min (>60); Glucose 97 mg/dL (80-110); HEMOLYSIS < 15 (0-50); Lipase 20 U/L (23-300); Magnesium 1.8 mg/dL (1.6-2.3); Sodium 129 mmol/L (137-145); Total Protein 5.3 g/dL (6.3-8.2)
[2022-11-20 10:54] LABS: NT-proBNP (BNP-Adult 18+) 674 pg/mL (<125)
[2022-11-20 10:57] LABS: Troponin I < 0.012 ng/mL (0.01-0.034)
[2022-11-20 11:37] VITALS: BP 152/70
[2022-11-20 11:38] VITALS: PULSE 79; O2SAT 98
--- NOTE | 2022-11-20 11:49 | PC.NURSE ---
Patient denies extremity pain but states he feels like he cant poop. New med orders per provider, see MAR.
[2022-11-20] MEDS: BISACODYL 10 MG SUPP PR (11:59)
[2022-11-20 12:00] VITALS: BP 123/68; PULSE 82; O2SAT 98
--- NOTE | 2022-11-20 12:00 | PC.NURSE ---
I provided more education to patient and spouse regarding stool softeners and suppositories. Patient requests taking suppository at home. Provider Okayed sending patient with suppository.
[2022-11-20 12:04] VITALS: RESP 14
== END 2022-11-20 12:11 | disposition home or self-care (01) ==
PROVIDERS: Emergency Provider Emergency Medicine; PCP Family Medicine
DX: K59.00 Constipation, unspecified (principal); R60.0 Localized edema
CPT/HCPCS: 36415; 71045; 80053; 82550; 83690; 83735; 83880; 84484; 85025; 85610; 85730; 93005; 99283; 99284

== ENCOUNTER 2023-10-12 13:54 | Day surgery (SDC) | payer MEDICARE, OTHER, SELFPAY ==
[2022-10-30 16:38] VITALS: BMI 22.2
[2023-10-12] VITALS (7 sets, daily range): BP systolic 66–128; BP diastolic 16–60; PULSE 91–100; RESP 13–20; TEMP 36.2–36.6; O2SAT 96–97
[2023-10-12] MEDS: LACTATED RINGERS 1,000 ML 100 ML IV (14:22)
--- NOTE | 2023-10-12 15:06 | PM.PREOP ---
Pre-operative Note COVID-19 COVID-19 status: Not tested Interval Note History & Physical reviewed/Exam performed by Physician: Yes Changes to H&P: No ASA Class (for procedural sedation): III
--- NOTE | 2023-10-12 15:30 | SUR.OPER ---
STRICTURE IN MID RECTUM PREVENTED ABILITY TO PASS SCOPE
--- NOTE | 2023-10-12 15:33 | PM.OP.COLON ---
Operative Date/Time/Diagnoses Date of procedure: 10/12/23 Time of procedure: 15:33 Pre-op diagnosis: Obstructed defecation Post-op diagnosis: same Procedure & Clinicians Study performed: Proctoscopy Same procedure as scheduled: No (Colonoscopy could not be performed because of the rectal stricture) Surgeon: Ochoa Sosa Procedure Notes Procedure in detail: Surgeon: Ochoa Sosa MD Anesthesia: Linnea Kyle CRNA Procedure: The patient was brought to the endoscopy suite, placed in left lateral decubitus position. The patient was connected to monitoring devices. A time-out was performed. Sedation was administered. Once the patient was adequately sedated, a digital rectal exam was performed. Bands of scar tissue were palpable in the mid rectum. Colonoscope was inserted and advanced to the mid rectum or about 6 cm from the dentate line. There was a very tight stricture at about the mid rectum. The scope could not be passed through the stricture. The scope was removed and the digital rectal exam was repeated and the small os of the stricture was palpated. The diameter of the os is estimated to be about 6 mm. It could not be digitally dilated. No hard masses were palpated. Procedure was terminated. Scope withdrawal time: Not applicable Sedation time: 8 minutes EBL: None Findings: High-grade stricture in the mid rectum Post-procedure Disposition: PACU
== END 2023-10-12 16:10 | disposition home or self-care (01) ==
PROVIDERS: PCP Family Medicine; Referring Provider Surgery; Visit Provider Surgery
PROC: 0DJD8ZZ Inspection of Lower Intestinal Tract, Via Natural or Artificial Opening Endoscopic (ICD-10-PCS; CPT 45378; principal; 2023-10-12 15:45)
DX: K62.4 Stenosis of anus and rectum (principal); Z53.09 Procedure and treatment not carried out because of other contraindication
CPT/HCPCS: 45378; J2704

== ENCOUNTER 2024-01-11 12:25 | Emergency (ER) | payer MEDICARE, OTHER, SELFPAY ==
[2022-10-30 16:38] VITALS: BMI 22.2
[2024-01-11 12:31] VITALS: BP 215/101; PULSE 95; RESP 22; O2SAT 100; BMI 20.7
--- NOTE | 2024-01-11 13:53 | ED_ITS ---
HPI - Neck Pain/Injury <Moses Hess PA-C - Last Filed: 01/11/24 16:48> General Chief Complaint: Neck Pain/Injury Stated Complaint: post op, neck pain Time Seen by Provider: 01/11/24 13:42 Mode of arrival: Ambulatory History of Present Illness HPI Narrative: This is a 68-year-old male presents emergency department due to back and neck pain onset a few hours after he had a colonoscopy this morning. He states that he feels that the pain in his back that wraps around his shoulders. He would denies any significant deeper chest pain. Denies any shortness of breath, nausea, vomiting, or any other concerning signs or symptoms. Related Data Home Medications Medication Instructions Recorded Confirmed gabapentin 300 mg capsule 300 mg PO DAILY 10/30/22 11/16/22 mesalamine 1.2 gram tablet,delayed 2.4 g PO DAILY 10/30/22 11/16/22 release mirtazapine 15 mg tablet 15 mg PO ONCE PM 10/30/22 11/16/22 sertraline 25 mg tablet 25 mg PO DAILY 10/30/22 11/16/22 lisinopril 10 mg tablet 10 mg PO BID 09/20/23 09/20/23 quetiapine 50 mg tablet (Seroquel) 50 mg PO BEDTIME 09/20/23 09/20/23 lisinopril 10 mg tablet 10 mg PO BID 10/12/23 10/12/23 Previous Rx's Medication Instructions Recorded cyclobenzaprine 10 mg tablet 10 mg PO TID PRN muscle spasm #30 01/11/24 tabs Allergies Allergy/AdvReac Type Severity Reaction Status Date / Time Penicillins Allergy Mild Verified 10/12/23 14:18 tetracycline AdvReac Severe Photosensit Verified 10/12/23 14:18 ivity Review of Systems <Moses Hess PA-C - Last Filed: 01/11/24 16:48> Review of Systems Narrative: GENERAL: Denies chills, fatigue, malaise, fever, sweats. HEENT: Denies sinus pain, ear pain, sore throat, difficulty swallowing, dizziness. RESPIRATORY: Denies dyspnea, cough, wheezing, hemoptysis, sputum. CARDIOVASCULAR: Denies chest pain, palpitations, orthopnea, edema, GASTROINTESTINAL: Denies nausea, vomiting, abdominal pain, diarrhea, constipation, melena. : Denies dysuria, frequency, incontinence, hematuria, urinary retention. MUSCULOSKELETAL: Reports back and neck pain denies weakness, joint pain, or bony pain SKIN: Denies rash, skin lesions, or other NEUROLOGIC: Denies weakness, headache, numbness, change in speech, confusion, seizures, incoordination. PSYCHIATRIC: No concerning psychosocial issues. 12 point review of systems is negative except for those stated above Patient History <Moses Hess PA-C - Last Filed: 01/11/24 16:48> Medical History Osteoporosis Compression fracture Constipation Femur fracture Hypertension Surgical History H/O Spinal surgery History of hip surgery S/P operative procedure on shoulder Social History household members: spouse and children Smoking Status: Current every day smoker alcohol intake: current Smoking Status: Current every day smoker tobacco type: vaping alcohol intake frequency: 3 or more drinks per day Substance Use Type: marijuana Exam <Moses Hess PA-C - Last Filed: 01/11/24 16:48> Narrative Exam Narrative: GENERAL: Well-developed patient, in mild distress. HEAD: Atraumatic. Normocephalic. EYES: Pupils equal round and reactive. Extraocular motions intact. No scleral icterus. No injection or drainage. ENT: Nose without bleeding, purulent drainage. Throat without erythema, tonsillar hypertrophy or exudate. Airway patent. NECK: Trachea midline. Non tender EXTREMITIES: No edema or joint tenderness. NEURO: AOx3. SKIN: No rash or erythema of visible areas Back: Tenderness to palpation with deep palpation of the bilateral trapezius muscles Initial Vital Signs Initial Vital Signs: Vital Signs Pulse Rate 95 H 01/11/24 12:31 Respiratory Rate 22 01/11/24 12:31 Blood Pressure 215/101 H 01/11/24 12:31 Pulse Oximetry 100 01/11/24 12:31 Oxygen Delivery Method Room Air 01/11/24 12:31 <Sheila Li MD - Last Filed: 01/11/24 18:14> Initial Vital Signs Initial Vital Signs: Vital Signs Pulse Rate 95 H 01/11/24 12:31 Respiratory Rate 22 01/11/24 12:31 Blood Pressure 215/101 H 01/11/24 12:31 Pulse Oximetry 100 01/11/24 12:31 Oxygen Delivery Method Room Air 01/11/24 12:31 Course <Moses Hess PA-C - Last Filed: 01/11/24 16:48> Orders Ordered: ED Orders 01/11/24 14:25 XR chest 2V Stat Discontinued Medications Ketorolac Tromethamine (Ketorolac 30 Mg/Ml Vial) 15 mg IM NOW ONE Stop: 01/11/24 16:31 Last Admin: 01/11/24 16:34 Dose: 15 mg Documented By: MULU Vital Signs Vital signs: Vital Signs - 8 hr 01/11/24 12:31 01/11/24 14:17 01/11/24 16:45 Pulse Rate 95 H 90 98 H Respiratory Rate 22 18 Blood Pressure 215/101 H 197/89 H 165/80 H Pulse Oximetry 100 97 Oxygen Delivery Method Room Air Room Air <Sheila Li MD - Last Filed: 01/11/24 18:14> Orders Ordered: ED Orders 01/11/24 14:25 XR chest 2V Stat Discontinued Medications Ketorolac Tromethamine (Ketorolac 30 Mg/Ml Vial) 15 mg IM NOW ONE Stop: 01/11/24 16:31 Last Admin: 01/11/24 16:34 Dose: 15 mg Documented By: MULU Vital Signs Vital signs: Vital Signs - 8 hr 01/11/24 12:31 01/11/24 14:17 01/11/24 16:45 Pulse Rate 95 H 90 98 H Respiratory Rate 22 18 Blood Pressure 215/101 H 197/89 H 165/80 H Pulse Oximetry 100 97 Oxygen Delivery Method Room Air Room Air MDM - Neck Pain/Injury <Moses Hess PA-C - Last Filed: 01/11/24 16:48> Imaging Data Chest x-ray: Radiologist's Impression: [address] [address] XRay Report Signed Patient: Andriy Valencia MR#: [id number] : 1955 Acct:[id number] Age/Sex: 68 / M Date of Service: 01/11/24 Loc: ED Accession Number: [id number] Procedure: XR chest 2V Ordering Provider: Moses Hess PA-C PROCEDURE: XR CHEST 2V INDICATIONS: Back pain, elevated BP TECHNIQUE: 2 views of the chest were acquired. COMPARISON: [facility], CR, XR LUMBAR SPINE 2 OR 3 VIEWS, 02/02/2023, 10:28. [facility], CR, XR CHEST 1V, 11/20/2022, 9:24. [facility], CR, CHEST 1 VIEW, 12/04/2013, 12:03. FINDINGS: Surgical changes and devices: Left shoulder arthroplasty. Prior vertebroplasties. Lungs and pleura: Lungs are clear. No pleural effusions or pneumothorax. Mediastinum: Mediastinal contours are normal. Heart size is normal. Bones and chest wall: No suspicious bony abnormalities. Prior left-sided rib fractures. Soft tissues appear unremarkable. IMPRESSION: No acute cardiopulmonary abnormality is seen. Dictated by: Jesse Andrews M.D. on 01/11/2024 at 16:20 Approved by: Jesse Andrews M.D. on 01/11/2024 at 16:22 MDM Narrative Medical decision making narrative: ED course: This is a 68-year-old male presenting to the emergency department with suspected muscular trapezius pain after being possibly being placed in a uncomfortable position during his colonoscopy earlier this morning. On exam he did have some pain with palpation of the deep trapezius muscles as well as some pain that was elicited did with the range of motion. She was x-ray did not show any kind of aortic thoracic widening. Patient was blood pressure was noted to be elevated although did he does have a history hypo and suspect should improve with the trouble at home name continuation of his routine blood pressure medications. He was not presenting with a any chest pain, shortness of breath, nausea, vomiting, or any other concerning signs or symptoms. CC: Back pain Complicating co-morbidities: History of hypertension Data collected from: Previous notes Medical records reviewed: Patient was last seen about a year ago in the emergency department due to constipation. Patient was eventually discharged with laxatives. History of hypertension. At that time was also recently hospitalized for small bowel obstruction requiring surgery. Differential considered, but not limited to: Thoracic aortic aneurysm, ACS, musculoskeletal back pain Exam documented above, pertinent findings include: Pain with palpation to the trapezius muscles as well as reproducible pain with stretching by the patient Lab Test results independently reviewed as above. Pertinent findings: None obtained Imaging studies independently reviewed: Chest x-ray unremarkable Scores Used: None MIPS Elements: None Consultations: None Treatments: 15 mg IM Toradol Re-evaluations: None Discussion: Discussed plan with the patient was comfortable with the plan Diagnosis: Muscular strain Disposition: see below, along with detailed discharge instructions that have been reviewed with patient as well as indications for ED re-evaluation and additional outpatient follow up Discharge Plan Departure Patient Disposition: Home Clinical Impression: Strain of neck muscle, Compression fracture of vertebra Activity Restrictions/Additional Instructions: Thank you for coming to the [facility] Emergency Department today. Your chest x-ray is reassuring and not show any evidence of any kind of intrat horacic injury. I suspect the pain you are experiencing his muscular in nature after being placed in an uncomfortable position during your colonoscopy. The Toradol given today should help. Please also take muscle relaxants as prescribed. The may make you feel a bit ?woozy? splint you please do not take them before driving or operating any kind of machinery. Please return to the emergency department if you develop any chest pain, nausea, vomiting, or any other concerning signs or symptoms. I sent the medication to [facility] in [place]. I hope you feel better soon. Please follow up with your primary care provider within a week if your symptoms continue. If you do not have a primary care provider please contact the [facility] Resource line at [phone]. They will ask some questions about your medical history and help you get set up with a provider in the community. Prescriptions: New cyclobenzaprine 10 mg tablet 10 mg PO TID PRN (Reason: muscle spasm) Qty: 30 0RF No Action lisinopril 10 mg tablet 10 mg PO BID quetiapine [Seroquel] 50 mg tablet 50 mg PO BEDTIME Rx Instructions: .5-2 tabs gabapentin 300 mg capsule 300 mg PO DAILY sertraline 25 mg tablet 25 mg PO DAILY mirtazapine 15 mg tablet 15 mg PO ONCE PM mesalamine 1.2 gram tablet,delayed release (DR/EC) 2.4 g PO DAILY lisinopril 10 mg tablet 10 mg PO BID Referrals: Fabian Astudillo MD [Primary Care Provider] - Stand Alone Forms: Patient Portal/API ED Sign-out <Sheila Li MD - Last Filed: 01/11/24 18:14> Cosign ED Attending Cosignature Attestation: I was immediately available in the department for consultation throughout this patient's visit. Sheila Li MD
[2024-01-11 14:17] VITALS: BP 197/89; PULSE 90
--- NOTE | 2024-01-11 14:25 | DI.RAD.S_ITS ---
PROCEDURE: XR CHEST 2V INDICATIONS: Back pain, elevated BP TECHNIQUE: 2 views of the chest were acquired. COMPARISON: [facility], CR, XR LUMBAR SPINE 2 OR 3 VIEWS, 02/02/2023, 10:28. [facility], CR, XR CHEST 1V, 11/20/2022, 9:24. [facility], CR, CHEST 1 VIEW, 12/04/2013, 12:03. FINDINGS: Surgical changes and devices: Left shoulder arthroplasty. Prior vertebroplasties. Lungs and pleura: Lungs are clear. No pleural effusions or pneumothorax. Mediastinum: Mediastinal contours are normal. Heart size is normal. Bones and chest wall: No suspicious bony abnormalities. Prior left-sided rib fractures. Soft tissues appear unremarkable. IMPRESSION: No acute cardiopulmonary abnormality is seen. Dictated by: Jesse Andrews M.D. on 01/11/2024 at 16:20 Approved by: Jesse Andrews M.D. on 01/11/2024 at 16:22
[2024-01-11] MEDS: KETOROLAC 30 MG/ML VIAL 15 MG IM (16:34)
[2024-01-11 16:45] VITALS: BP 165/80; PULSE 98; RESP 18; O2SAT 97
== END 2024-01-11 16:54 | disposition home or self-care (01) ==
PROVIDERS: Emergency Provider Physician Assistant Medical; PCP Family Medicine
DX: S16.1XXA Strain of muscle, fascia and tendon at neck level, initial encounter (principal); M48.50XA Collapsed vertebra, not elsewhere classified, site unspecified, initial encounter for fracture
CPT/HCPCS: 71046; 96372; 99283; J1885